=== PATIENT | male | born 1935 | race Caucasian/White ===

== ENCOUNTER 2017-03-18 10:04 | Outpatient (RCR) | payer MEDICARE, OTHER | END 2017-03-19 14:49 | disposition home or self-care (01) | LOC: ONC 10:04 | PROVIDERS: ATTEND Radiology Radiation Oncology | DX: Z51.0 Encounter for antineoplastic radiation therapy (principal); C61 Malignant neoplasm of prostate | CPT/HCPCS: 77300; 77301; 77334; 77336; 77338; 77385; 99214 ==

== ENCOUNTER 2017-05-18 09:58 | Outpatient (RCR) | payer MEDICARE, OTHER | END 2017-06-20 | disposition home or self-care (01) | LOC: ONC 09:58 | PROVIDERS: ATTEND Radiology Radiation Oncology | DX: Z51.0 Encounter for antineoplastic radiation therapy (principal); C61 Malignant neoplasm of prostate | CPT/HCPCS: 77336; 77385 ==

== ENCOUNTER 2022-05-11 12:12 | Inpatient (IN) | payer MEDICARE, OTHER ==
[~2022-05-11] VITALS: Ht 170.1 cm; Wt 93.5 kg
[2022-05-11] MEDS ORDERED: CALCIUM CARBONATE 500 MG (TUMS) TAB.CHEW PO PRN (12:45)
[2022-05-11] MEDS ORDERED: ALPRAZolam 0.25 MG (XANAX) TAB PO PRN (12:45)
[2022-05-11] MEDS ORDERED: MELATONIN 3 MG TABLET PO PRN (12:45)
[2022-05-11] MEDS ORDERED: ACETAMINOPHEN 325 MG TABLET PO PRN (12:45)
[2022-05-11] MEDS ORDERED: guaiFENesin/CODEINE (ROBITUSSIN AC) 10ML UDC PO PRN (12:45)
[2022-05-11] MEDS ORDERED: diphenhydrAMINE 25 MG TAB (BENADRYL) PO PRN (12:45)
[2022-05-11] MEDS ORDERED: FLEET ENEMA ADULT 1 EA BTL PR PRN (12:45)
[2022-05-11] MEDS ORDERED: LOPERAMIDE 2 MG (IMODIUM) TABLET PO PRN (12:45)
[2022-05-11] MEDS ORDERED: DOCUSATE SODIUM 100 MG (COLACE) CAP PO PRN (12:45)
[2022-05-11] MEDS ORDERED: ONDANSETRON 4 MG (ZOFRAN) ORAL DISSOLVE TAB PO PRN (12:45)
[2022-05-11] MEDS ORDERED: OXYC5TAB PO (12:47)
[2022-05-11] MEDS ORDERED: FENO145T26 PO (12:47)
[2022-05-11] MEDS ORDERED: DICL100G13 TP (12:47)
[2022-05-11] MEDS ORDERED: GLUC-219 PO (12:47)
[2022-05-11] MEDS ORDERED: CALC-901 PO (12:47)
[2022-05-11] MEDS ORDERED: PANT40TA52 PO (12:47)
[2022-05-11] MEDS ORDERED: TRAM50TA3 PO (12:47)
[2022-05-11] MEDS ORDERED: NIAC500T9 PO (12:47)
[2022-05-11] MEDS ORDERED: ASCO-262 PO (12:47)
[2022-05-11] MEDS ORDERED: MULT15TA3 PO (12:47)
[2022-05-11] MEDS ORDERED: ASPI325T32 PO (12:47)
[2022-05-11] MEDS ORDERED: DOXA2TAB2 PO (12:47)
[2022-05-11] MEDS ORDERED: [UNRECOGNIZED DRUG - CODE] TP (12:47)
[2022-05-11] MEDS ORDERED: DIAZ5TAB49 PO (12:47)
[2022-05-11] MEDS ORDERED: RIFA550T PO (12:47)
[2022-05-11] MEDS ORDERED: ACET-2267 PO (12:47)
[2022-05-11] MEDS ORDERED: MELA5TAB14 PO (12:47)
--- NOTE | 2022-05-11 12:48 | PM&R Post Admission Assessment ---
PM&R HP Date of Visit: May 11, 2022 Time of Visit: 18:00 History of Present Illness CC: Slow recovery following LTKA HPI: See below CC: S/P LTKA HPI: Patient is an 86-year-old male with a history of osteoarthritis who presents to the ARU on 05/11 following a left TKA. The patient has had chronic left knee pain due to his osteoarthritis that worsened over the past few months and had begun to limit his mobility due to pain. Prior to the surgery, this was managed with injections and anti-inflammatories, and the patient had failed an exercise program. Following the operation, the patient had some tachycardia, dyspnea on exertion, and endorsed an occasional sensation of tightness in his chest. The patient was found to be COVID + on 05/07. A CXR showed increased interstitial opacities exaggerated by small inspiration and pulmonary edema. CT angiogram showed atelectasis and no signs of PE. EKG on 05/05 showed a probable old inferior VT and a RBBB, and an EKG on 05/07 showed a possible new lateral wall VT. An echo was obtained and showed an EF of 70% and no signs of valvular or atrial pathology. When I entered the patient's room, he was awake and alert in his bed and had recently finished with PT. He reports that he is currently having a lot of pain in his left knee due to the therapy that he rates as a 7/10. He also endorses weakness in his left LE and a slight decrease in ROM. Patient lives alone and was previously independent in all ADLs. The patient also states that he has been having diarrhea for about 6 months and that he had an EGD and colonoscopy done in [place] which showed diverticulitis. He was started on antibiotics and probiotics, but feels that he probably forgot to take all of them. He also reports that he has had nausea without vomiting since he tested positive for COVID. He states that whenever he eats he feels extremely nauseous but that he has been on antiemetics which has helped. The patient has no other complaints and has not had any more episodes of chest discomfort/pain or dyspnea. PMH: HTN, chronic diarrhea, diverticulosis, BPH, osteoarthritis, anxiety, bladder cancer PSH: LTKA, appendectomy, TURBT, skin cancer All: Allopurinol (unknown reaction), penicillin (rash), prednisone (unknown reaction), sulfa (rash) Home meds: ASA, calcium carbonate-cholecalciferol, doxazosin, multivitamin, miralax, ascorbic acid, betamethasone diproprionate, diazepam, diclofenac, doxycycline hyclate, fenofibrate, advil, advil PM, niacin SH: Denies tobacco or illicit drug use, endorses occasional alcohol use FH: No pertinent family history ROS: Denies fever, chills, abdominal pain, back/neck pain, changes in vision or hearing, chest pain, SOB, numbness Exam: Patient is WD/WN, no acute distress. HRRR, 2+ distal pulses in all extremities, LCTAB, no respiratory distress or accessory muscle use, PERRLA, abdomen is soft, nontender, neck is supple and nontender, left lower extremity is currently dressed and braced, no edema or erythema noted. Distal sensation intact. A: S/P LTKA Weakness Diarrhea COVID + HTN Nausea Anxiety Diverticulosis BPH Osteoarthritis P: Work with PT/OT Start on probiotics, loperamide, rifaximin Isolation protocol for COVID Antiemetics as needed Anxiolytics as needed Pain control Continue doxazosin NESTOR ROMO Past Cceykfd-Ibkoxd-Bikkuy Hx Past Med/Social Hx: Reviewed Nursing Past Med/Soc Hx, Reviewed and Corrections made Patient Social History Marrital Status: single Employed/Student: retired Alcohol Use: Denies Use Smoking Status: Never a Smoker Past Medical History Surgeries: Orthopedic Respiratory: Pneumonia COVID 04/2022 Cardiac: High Cholesterol, Hypertension Genitourinary: Benign Prostatic Hyperpl Gastrointestinal: Gastroesophageal Reflux PM&R Allergy/Meds/Data Review Allergies Coded Allergies: Penicillins (Verified Allergy, Unknown, 05/11/22) Sulfa (Sulfonamide Antibiotics) (Verified Allergy, Unknown, 05/11/22) allopurinol (Verified Allergy, Unknown, 05/11/22) ibuprofen (Verified Allergy, Unknown, 05/11/22) prednisone (Verified Allergy, Unknown, 05/11/22) Home Medications Scheduled Acetaminophen (Tylenol Extra Strength), 1,000 MG PO Q8H, (Reported) Ascorbate Calcium (Vitamin C), 500 MG PO DAILY, (Reported) Aspirin (Aspirin EC), 325 MG PO HS, (Reported) Calcium Carbonate/Vitamin D3 (Calcium 600 + Vit D 800 Tab), 1 EACH PO BID, (Reported) Doxazosin Mesylate (Doxazosin Mesylate), 2 MG PO HS, (Reported) Fenofibrate Nanocrystallized (Fenofibrate), 145 MG PO HS, (Reported) Glucosamine/D3/Boswellia Cindy (Osteo Bi-Flex Tablet), 1 EACH PO DAILY, (Reported) Multivit-Min/Ferrous Fumarate (Multivitamin with Minerals Tab), 1 EA PO DAILY, (Reported) Niacin (Niacin), 500 MG PO HS, (Reported) Pantoprazole Sodium (Pantoprazole Sodium), 40 MG PO DAILY, (Reported) Rifaximin (Xifaxan), 550 MG PO TID, (Reported) Scheduled PRN Betamethasone Dipropionate (Sernivo), 1 APPLIC TP DAILY PRN for RASH, (Reported) Diazepam (Diazepam), 5 MG PO DAILY PRN for ANXIETY, (Reported) Diclofenac Sodium (Diclofenac Sodium), 2 GM TP QID PRN for PAIN-BREAKTHROUGH, (Reported) Melatonin (Melatonin), 5 MG PO HS PRN for SLEEP, (Reported) Oxycodone HCl (Oxycodone HCl), 5-10 MG PO EVERY 2 HOURS PRN for PAIN-SEVERE (8- 10), (Reported) Tramadol HCl (Tramadol HCl), 50-100 MG PO Q6H PRN for PAIN-MODERATE (5-7), (Reported) Current Medications Current Medications Reviewed Review of Systems Constitutional: see HPI, malaise, weakness EENTM: no symptoms reported Respiratory: dyspnea on exertion Cardiovascular: no symptoms reported Gastrointestinal: nausea Genitourinary: decreased output Musculoskeletal: back pain, joint pain Skin: no symptoms reported Psychiatric/Neurological: No Symptoms Reported All Other Systems Reviewed Negative Unless Noted: Yes Physical Exam Physical Exam Vital Signs Capillary Refill : Height, Weight, BMI Height: '" Weight: lbs. oz. kg; BMI Method: General Appearance: No Apparent Distress, WD/WN, Chronically ill, Obese Eyes: Bilateral Eye Normal Inspection, Bilateral Eye PERRL HEENT: PERRL/EOMI, Normal ENT Inspection, Pharynx Normal Neck: Full Range of Motion, Normal Inspection, Non Tender, Supple, Carotid Bruit Respiratory: Chest Non Tender, Lungs Clear, Normal Breath Sounds, No Accessory Muscle Use, No Respiratory Distress Cardiovascular: Regular Rate, Rhythm, No Edema, No Gallop, No JVD, No Murmur, Normal Peripheral Pulses Gastrointestinal: Normal Bowel Sounds, No Organomegaly, No Pulsatile Mass, Non Tender, Soft Back: Normal Inspection, No CVA Tenderness, No Vertebral Tenderness Extremity: Normal Capillary Refill, Normal Inspection, Normal Range of Motion (except left leg), Non Tender, No Calf Tenderness, No Pedal Edema Neurologic/Psychiatric: Alert, Oriented x3, No Motor/Sensory Deficits, Normal Mood/Affect, 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 Norm as Tested, Abnormal Gait, Motor Weakness Skin: Normal Color, Warm/Dry Lymphatic: No Adenopathy PM&R Medical Assessment & Plan REHAB/MEDICAL ASSESSMENT AND PLAN: REHAB IMPAIRMENT GROUP: LTKA ETIOLOGIC DIAGNOSIS: LTKA The comorbidities that impact the patients function and/or functional outcome by: Advanced age, slow recovery, recent COVID, continued and refractory nausea, dehydration on admit, lives alone REHAB PLAN: The patient is being admitted to our comprehensive inpatient rehabilitation facility and can tolerate the intensity of service consisting of at least: 180 minutes of therapy a day, 5 out of 7 days a week Rehab treatment will consist of: PT and OT will focus on regaining function with use of assistive devices to increase stamina and prevent falls in order to return back home to independent living The patient/family has a good understanding of our discharge process and will benefit from an interdisciplinary inpatient rehabilitation program. The patient has potential to make improvement and is in need of at least two of the following multidisciplinary therapies including but not limited to physical, occupational, speech, and prosthetics and orthotics. Additionally the patient will need services from respiratory, nutritional services, wound care, ps ychology, etc. (Customize this to each patient). Given the patients complex condition and risk of further medical complications, rehabilitation services cannot be safely or effectively provided at a lower level of care such as a jail facility. BARRIERS TO DISCHARGE: Lives alone with slow recovery ESTIMATED LOS: 10 days DISPOSITION: Home RELEVANT CHANGES SINCE PREADMISSION SCREENING: I have compared the patients medical and functional status at the time of the preadmission screening and there are: No changes PROGNOSIS: Fair REHABILITATION GOALS: 1.PT and OT will focus on regaining function with use of assistive devices to increase stamina and prevent falls in order to return back home to independent living All the above goals were reviewed with the patient and he/she is in agreement. By signing this document, I acknowledge that I have personally performed a full physical examination on this patient within 24 hours of admission to this inpatient rehabilitation facility and have determined the patient to be able to tolerate the above course of treatment at an intensive level for a reasonable period of time. I will be completing a detailed individualized Plan of Care for this patient by day #4 of the patients stay based upon the Preadmission Screen, the Post-Admission Evaluation, and the therapy evaluations. Admission Dx/Comorbidities: (1) History of arthroplasty of right knee ICD Codes: Z96.651 - Presence of right artificial knee joint (2) Nausea ICD Codes: R11.0 - Nausea (3) History of COVID-19 ICD Codes: Z86.16 - Personal history of COVID-19 (4) Hypoxia ICD Codes: R09.02 - Hypoxemia Assessment/Plan Assessment and Plan Assess & Plan/Chief Complaint A: S/P LTKA due to osteoarthritis Dr Price 05/05/2022 Weakness Diarrhea COVID recent 3 weeks ago s/p Paxlovid Hypoxia requiring O2 new onset h/o falls HTN Nausea Anxiety Diverticulosis BPH Osteoarthritis Subacute nausea Dehydration RBBB Plan: Pain control Nausea treatment IVF Pain control Aggressive PT OT AMY GROVES DO May 11, 2022 12:48
--- NOTE | 2022-05-11 13:59 | Physical Therapy Evaluation ---
PT Evaluation-General Medical Diagnosis Admission Date May 11, 2022 at 13:15 Medical Diagnosis: s/p Left TKA Onset Date: May 07, 2022 Therapy Diagnosis Therapy Diagnosis: Gait deficit, strength deficit Precautions Precautions/Isolations: Fall Prevention Weight Bear Status Right Lower Extremity: Right Full Weight Bearing Left Lower Extremity: Left Weight Bearing/Tolerated Referral Physician: Wolf Reason for Referral: Evaluation/Treatment Medical History Reviewed History: Yes Social History Home: Single Level Current Living Status: Alone Entry Into Home: Ramp Prior Prior Level of Function SCALE: Activities may be completed with or without assistive devices. 1-Yqlkyyrykn-okxbddo completes the activity by him/herself with no assistance from a helper. 5-Set-up or Clean-up Assistance-helper sets up or cleans up; patient completes activity. [place] assists only prior to or following the activity. 4-Supervision or Touching Assistance-helper provides verbal cues and/or touching/steadying and/or contact guard assistance as patient completes activity. Assistance may be provided throughout the activity or intermittently. 3-Partial/Moderate Assistance-helper does LESS THAN HALF the effort. [place] lifts, holds or supports trunk or limbs, but provides less than half the effort. 2-Substantial/Maximal Assistance-helper does MORE THAN HALF the effort. [place] lifts or holds trunk or limbs and provides more than half the effort. 0-Tsidvwebm-hwpggv does ALL the effort. Patient does none of the effort to complete the activity. Or, the assistance of 2 or more helpers is required for the patient to complete the activity. If activity was not attempted, code reason: 7-Patient Refused. 9-Not Applicable-not attempted and the patient did not perform the activity before the current illness, exacerbation or injury. 10-Not Attempted due to Environmental Limitations-(lack of equipment, weather restraints, etc.). 88-Not Attempted due to Medical Conditions or Safety Concerns. Bed Mobility: 6 Transfers (B,C,W/C): 6 Gait: 6 Stairs: 6 Indoor Mobility (Ambulation): Independent Stairs: Independent Prior Devices Use: Walker Patient reports he has 2 power wheelchairs at home that his used and they fit him, he has a cane and FWW PT Evaluation-Current Subjective Patient presents to the clinic via EMS transport. Patient agreeable to treatment however reports "the knee really hurts when I move it." Rates pain at 8-10/10 with movement. Patient reports that he hasn't eaten in 3 days. Later states that his son "got me a sandwich from [employer] and that really tasted good." Then a few minutes later states "My son got me a chili dog from [employer] and that went down really well." Reports "the food from there ([facility]) wasn't fit to eat. Made me gag when I tried to swallow it." Nurse notified. Pain Section J - Health Conditions 1. Rarely or not at all 2. Occasionally 3. Frequently 4. Almost constantly 8. Unable to answer Pain Effect on Sleep: 2 Pain Interference with Therapy: 3 Pain Interference w/Day-to-Day: 3 Objective Patient Orientation: Person, Place, Time, Mumbles ROM/Strength ROM Lower Extremities Left knee flexion 75 degrees AROM, left knee extension lacks 20 degrees of TKE Right LE appears WFLs all planes; Left hip and ankle WFLs all planes. Sensory Vision: Functional Hearing: Hearing Aid/Aides Sensation Right Lower Extremit: Intact Sensation Left Lower Extremity: Intact Transfers Roll Left & Right (QC): 3 Sit to Lying (QC): 3 Lying to Sitting/Side of Bed(Q: 3 Sit to Stand (QC): 3 Chair/Kmk-vf-Aqecg Xfer(QC): 3 Toilet Transfer (QC): 3 Car Transfer (QC): 3 Gait Does the Patient Walk?: Yes Mode of Locomotion: Walk Anticipated Mode of Locomotion: Walk Walk 10 feet (QC): 3 Walk 50 ft with 2 Turns(QC): 88 Walk 150 ft (QC): 88 Walking 10ft/uneven surface-QC: 3 Distance: 20 feet Gait Assistive Device: FWW Wheelchair Training Does the Pt Use a Wheelchair?: Yes Distance: 50 Wheel 50 ft with 2 turns (QC): 4 Wheel 150 ft (QC): 1 Type of Wheelchair: Manual Stairs #of Steps: 0 1 Step (curb) (QC): 88 4 Steps (QC): 88 12 Steps (QC): 88 Balance Sitting Static: Fair Sitting Dynamic: Fair Standing Static: Poor Standing Dynamic: Poor Picking up an Object (QC): 4 Special Test Comments Mustaphaetti 02/15 Assessment/Needs Patient tolerated initial evaluation and treatment poorly. Patient requires min A for all bed mobility due to weakness in the left LE and pain. Patient requires min/mod A for all observed transfers. Patient ambulates 15', 20', 15' and 10' with min A and verbal cues for safety, progression, posture and appropriate use of FWW. Patient ambulates with significant antalgic gait pattern with decreased stance time on left LE, lacks ~20 degrees left TKE during stance phase, shortened stride length bilaterally, poor tolerance and increased fall risk. Patient able to propel w/c 50 feet with min A and verbal cues for turning and encouragement. Patient in w/c with OT post PT treatment with all needs met. PT evaluation performed first, followed by OT evaluation, then co- treatment with OT due to patient requiring additional skilled treatment and assistance to perform balance and functional ADLs safely. Rehab Potential: Fair PT Shelter Goals Shelter Goals PT Candy Vendor Goals Time Frame: Jun 20, 2022 Roll Left to Right (QC): 6 Sit to Lying (QC): 6 Lying-Sitting on Side/Bed(QC): 6 Sit to Stand (QC): 6 Chair/Gaq-lu-Lprlj Xfer(QC): 6 Toilet/Commode Transfer (QC): 6 Car Transfer (QC): 6 Does the Patient Walk: Yes Walk 10 feet (QC): 6 Walk 10ft-Uneven Surface(QC): 6 Walk 50ft with 2 Turns (QC): 6 Walk 150 ft (QC): 4 Does the Pt use WC or Scooter?: Yes Wheel 50 feet with 2 turns (QC: 6 Type: Manual Wheel 150 feet: 6 Type: Manual 1 Step (curb) (QC): 3 4 Steps (QC): 3 12 Steps (QC): 3 Picking up an Object (QC): 6 PT Plan Problem List Problem List: Activity Tolerance, Functional Strength, Safety, Balance, Gait, Transfer, Bed Mobility, ROM Treatment/Plan Treatment Plan: Continue Plan of Care Treatment Plan: Bed Mobility, Education, Functional Activity Christophe, Functional Strength, Group Therapy, Gait, Safety, Therapeutic Exercise, Transfers Treatment Duration: Jun 20, 2022 Frequency: At least 5 of 7 days/Wk (IRF) Estimated Hrs Per Day: 1.5 hours per day Patient and/or Family Agrees t: Yes Safety Risks/Education Patient Education: Gait Training, Transfer Techniques Teaching Recipient: Patient Teaching Methods: Demonstration, Discussion Response to Teaching: Verbalize Understanding, Return Demonstration Time Time In: 1330 Time Out: 1440 DATE: May 11, 2022 Total Billed Treatment Time: 60 Total Billed Treatment PT Eval [id number] OT Eval [id number] Co-Treatment [id number] Charges: Visit, Fariba, Nany (20) FA (30) AKIRA ADAMSON PT May 11, 2022 13:59
--- NOTE | 2022-05-11 15:00 | Occupational Therapy Eval ---
OT Evaluation-General/PLF Medical Diagnosis Admission Date May 11, 2022 at 13:15 Medical Diagnosis: s/p Left TKA Onset Date: May 07, 2022 Therapy Diagnosis Therapy Diagnosis: decreased ADL status Precautions Precautions/Isolations: Fall Prevention, Standard Precautions, Pressure Ulcer Referral Physician: Wolf Larsen Reason: Evaluation/Treatment Medical History Additional Medical History HTN, diverticulitis, BPH, OA, TURBT, skin cancer removal Current History s/p L TKA 05/05/22. COVID at the beginning of April Social History Home: Single Level Current Living Status: Alone Entry Into Home: Ramp ADL-Prior Level of Function SCALE: Activities may be completed with or without assistive devices. 4-Qzfjgrqpvd-slfkgoa completes the activity by him/herself with no assistance from a helper. 5-Set-up or Clean-up Assistance-helper sets up or cleans up; patient completes activity. [place] assists only prior to or following the activity. 4-Supervision or Touching Assistance-helper provides verbal cues and/or touching/steadying and/or contact guard assistance as patient completes activity. Assistance may be provided throughout the activity or intermittently. 3-Partial/Moderate Assistance-helper does LESS THAN HALF the effort. [place] lifts, holds or supports trunk or limbs, but provides less than half the effort. 2-Substantial/Maximal Assistance-helper does MORE THAN HALF the effort. [place] lifts or holds trunk or limbs and provides more than half the effort. 8-Tdygmonlm-syrncx does ALL the effort. Patient does none of the effort to complete the activity. Or, the assistance of 2 or more helpers is required for the patient to complete the activity. If activity was not attempted, code reason: 7-Patient Refused. 9-Not Applicable-not attempted and the patient did not perform the activity before the current illness, exacerbation or injury. 10-Not Attempted due to Environmental Limitations-(lack of equipment, weather restraints, etc.). 88-Not Attempted due to Medical Conditions or Safety Concerns. ADL PLOF Comments Pt reports IND with ADLs and functional mobility at PLOF, without AD. He has a walk in shower, no SC. Self Care: Independent Functional Cognition: Independent DME/Equipment: Shower OT Current Status Subjective Pt agreeable to OT evaluation, rates pain 7/10 in L knee. Pt appears slightly confused throughout tx, at one point states he hasn't ate in 3 days and the food at [employer] wasn't fit to eat. Later he indicated his son got him a sandwich from [employer], and a few minutes after that said his son got him a chili dog from [employer]. Mental Status/Objective Patient Orientation: Person, Confused, Place, Situation Attachments: Polar Pack Current Glasses/Contacts: Yes Hearing Aids: Yes Dentures/Partials: No Hand Dominance: Right Upper Extremity ROM WFL, BUE shoulder flexion to approx 160 degrees Upper Extremity Coordination WFL Upper Extremity Sensation WFL Upper Extremity Strength Grossly 4/5 BUEs slightly decreased fine motor strength, pt had difficulty opening salad dressing ADL-Treatment Eating (QC): 5 (set up. Assist opening salad dressing) Oral Hygiene (QC): 6 (IND seated at sink.) Shower/Bathe Self (QC): 3 (Min A with lower legs/feet. ) Upper Body Dressing (QC): 5 Lower Body Dressing (QC): 4 (CGA. ) On/Off Footwear (QC): 4 (CGA for dynamic sitting balance as pt leaned forward) Toileting Hygiene (QC): 4 (CGA. Pt able to manage hygiene and clothing) Increased time and encouragement required to complete ADLS. Pt often states he can't complete a task prior to attempting himself. Other Treatments OT evaluation complete. OT/PT cotreat due to skill of 2 clinicians required that a rehab assistant could not perform in order to coordinate UE/LEs, decrease fall risk, and due to pt's limitations in pain, mobility, transfers, dynamic standing balance, and activity tolerance. OT focused on UE placement, cues for sequencing/safety, and ADLs, PT focused on LE placement, gross overall movement, and transfers/mobility. Pt completed functional transfers and mobility, min A bed mobility, min-mod A with transfers, min A with ambulation (15', 20', 15', & 10', VCs required for safety, progression, posture, and appropriate use of FWW), min A w/c mobility 50' (VCS for turns and encouragement). Pt used FWW to complete toileting, then completed sponge bath, dressing, and oral care seated at sink, then used FWW to transfer to EOB. Pt sat EOB to eat lunch, set up assist required to open salad dressing. No LOB with dynamic sitting balance, but pt states fatigue with increased time. Pt transferred supine, polar pack placed on LLE. Post tx, pt in bed, call light in reach and all needs met. Education OT Patient Education: Correct positioning, Energy conservation, Modified ADL techniques, Progress toward Goal/Update tx plan, Purpose of tx/functional activities, Rehab process Teaching Recipient: Patient Teaching Methods: Discussion Response to Teaching: Verbalize Understanding BIMS CAM BIMS Expression of Ideas and Wants: Without Difficulty Understanding Verbal Content: Usually Understands (pt HUSLIA, sometimes requires repetition of instructions/question) IRF RENITA BIMS: IRF RENITA BIMS Response (Comments) Value Repitition of Three Words Three 3 Recalls Socks No, Could Not Recall 0 Recalls Blue Yes, No Cue Required 2 Recalls Bed No, Could Not Recall 0 Year Correct 3 Month Accurate Within 5 Days 2 Day Correct 1 Total 11 Should Staff Asses. Mental St.: No CAM Mental Status Change/Baseline: 0 Inattention: 0 Disorganized thinkin Altered level of consciousness: 0 OT Short Term Goals Short Term Goals Time Frame: May 25, 2022 Upper body dressin Lower body dressin Putting on/taking off footwear: 5 OT Fpc Goals Automotive Light Mechanic Goals Time Frame: Jun 05, 2022 Acute change in mental status: 0 Inattention: 0 Disorganized thinkin Altered level of consciousness: 0 Eating (QC): 6 Oral Hygiene (QC): 6 Toileting Hygiene (QC): 6 Shower/Bathe Self (QC): 5 Upper Body Dressing (QC): 6 Lower Body Dressing (QC): 6 On/Off Footwear (QC): 6 Additional Goals: 1-Demonstrate ADL Tasks, 2-Verbalize Understanding, 3- ImproveStrength/Christophe 1=Demonstrate adherence to instructed precautions during ADL tasks. 2=Patient will verbalize/demonstrate understanding of assistive d evices/modifications for ADL. 3=Patient will improve strength/tolerance for activity to enable patient to perform ADL's. OT Education/Plan Problem List/Assessment Assessment: Decreased Activ Tolerance, Decreased UE Strength, Impaired Funct Balance, Impaired I ADL's, Impaired Self-Care Skills Discharge Recommendations Plan/Recommendations: Continue POC Equpiment Recommendations-D/C: Bath Chair Comment Further AE/DME to be assessed based on pt's progress. At this time, pt may require a hip kit at discharge. Barriers to Progress Pt's pain level limits his motivation to complete ADLS himself. Treatment Plan/Plan of Care Patient would benefit from OT for education, treatment and training to promote independence in ADL's, mobility, safety and/or upper extremity function for ADL's. Plan of Care: ADL Retraining, Functional Mobility, Group Exercise/Act as Ind, UE Funct Exercise/Act Treatment Duration: Jun 05, 2022 Frequency: At least 5 of 7 days/Wk (IRF) Estimated Hrs Per Day: 1.5 hours per day Agreement: Yes Rehab Potential: Fair Time Start Time: 13:40 Stop Time: 15:10 DATE: May 11, 2022 Total Time Billed (hr/min): 90 Billed Treatment Time OT eval [id number] (10'), [place]reat [id number] (80') 1, EVM (10'), FA (20'), ADL 4 (60') THOMAS STEWART OT May 11, 2022 15:00
[2022-05-11 15:03] VITALS: BP 144/67
[2022-05-11] MEDS ORDERED: NON-FORMULARY MEDICATION 1 EA EA (Melatonin 5 MG) PO PRN (15:45)
[2022-05-11] MEDS ORDERED: DICLOFENAC 1% GEL 100 GM (VOLTAREN) TUBE TP PRN (15:45)
[2022-05-11] MEDS ORDERED: MELATONIN 10 MG TABLET PO PRN (16:00)
--- NOTE | 2022-05-11 16:19 | Physical Therapy Daily Note ---
PT Daily Note-Current Subjective PT just finished tx and pt is working w/OT upon arrival. Pt agrees to continue short co-treat w/ADMITTING COUNSELOR & OT. Pt also demonstrates confusion during tx. Pain Numeric Pain Scale: 7 Location: Left Location Body Site: Knee Pain Description: Ache, Tightness Section J - Health Conditions 1. Rarely or not at all 2. Occasionally 3. Frequently 4. Almost constantly 8. Unable to answer Pain Effect on Sleep: 2 Pain Interference with Therapy: 3 Pain Interference w/Day-to-Day: 3 Mental Status Patient Orientation: Person, Place, Situation Attachments: Other-See Comments (Hearing aids) Transfers SCALE: Activities may be completed with or without assistive devices. 0-Tiilmcikmd-xuyvztp completes the activity by him/herself with no assistance from a helper. 5-Set-up or Clean-up Assistance-helper sets up or cleans up; patient completes activity. [place] assists only prior to or following the activity. 4-Supervision or Touching Assistance-helper provides verbal cues and/or touching/steadying and/or contact guard assistance as patient completes activity. Assistance may be provided throughout the activity or intermittently. 3-Partial/Moderate Assistance-helper does LESS THAN HALF the effort. [place] lifts, holds or supports trunk or limbs, but provides less than half the effort. 2-Substantial/Maximal Assistance-helper does MORE THAN HALF the effort. [place] lifts or holds trunk or limbs and provides more than half the effort. 4-Stmqbqmto-aztogu does ALL the effort. Patient does none of the effort to complete the activity. Or, the assistance of 2 or more helpers is required for the patient to complete the activity. If activity was not attempted, code reason: 7-Patient Refused. 9-Not Applicable-not attempted and the patient did not perform the activity before the current illness, exacerbation or injury. 10-Not Attempted due to Environmental Limitations-(lack of equipment, weather restraints, etc.). 88-Not Attempted due to Medical Conditions or Safety Concerns. Weight Bearing Right Lower Extremity: Right Full Weight Bearing Left Lower Extremity: Left Weight Bearing/Tolerated Exercises Seated Therapy Exercises: Ankle pumps, Long arc quads (Attempted on L LE but difficulty moving w/o assistance), Hip flexion (Attempted on L LE but difficulty moving w/o assistance) Treatments OT/PT cotreat due to skill of 2 clinicians required that a rehabilitation medicine physician could not perform in order to coordinate UE/LEs, decrease fall risk, and due to pt's limitations in pain, mobility, transfers, dynamic standing balance, and activity tolerance. OT focused on UE placement, cues for sequencing/safety, and ADLs, PT focused on LE placement, gross overall movement, and transfers/mobility. Pt completed functional transfers and mobility, min A bed mobility, min-mod A with transfers, min A with ambulation (15', 20', 15', & 10', VCs required for safety, progression, posture, and appropriate use of FWW). Pt sat EOB to eat lunch, set up assist required to open salad dressing. No LOB with dynamic sitting balance, but pt states fatigue with increased time. Pt transferred supine, polar pack placed on LLE. Post tx, pt in bed, call light in reach and all needs met. Assessment Current Status: Fair Progress Pain & fatigue limit pt's participation during tx. PT Mica Plate Layer Goals Mica Plate Layer Goals PT Mica Plate Layer Goals Time Frame: Jun 20, 2022 Roll Left & Right (QC): 6 Sit to Lying (QC): 6 Lying-Sitting on Side/Bed(QC): 6 Sit to Stand (QC): 6 Chair/Idl-wr-Namrc Xfer(QC): 6 Toilet Transfer (QC): 6 Car Transfer (QC): 6 Does the Patient Walk: Yes Walk 10 feet (QC): 6 Walk 50ft with 2 Turns (QC): 6 Walk 150 ft (QC): 4 Walking 10ft on Uneven Surface: 6 1 Step (curb) (QC): 3 4 Steps (QC): 3 12 Steps (QC): 3 Picking up an Object (QC): 6 Does the Pt use WC or Scooter?: Yes Wheel 50 feet with 2 turns (QC: 6 Type: Manual Wheel 150 feet: 6 Type: Manual PT Plan Problem List Problem List: Activity Tolerance, Functional Strength, Gait, Transfer Treatment/Plan Treatment Plan: Continue Plan of Care Treatment Plan: Bed Mobility, Education, Functional Activity Christophe, Functional Strength, Group Therapy, Gait, Safety, Therapeutic Exercise, Transfers Treatment Duration: Jun 20, 2022 Frequency: At least 5 of 7 days/Wk (IRF) Estimated Hrs Per Day: 1.5 hours per day Patient and/or Family Agrees t: Yes Safety Risks/Education Patient Education: Transfer Techniques, Correct Positioning Teaching Recipient: Patient Teaching Methods: Discussion Response to Teaching: Verbalize Understanding Time Time In: 1440 Time Out: 1510 DATE: May 11, 2022 Total Billed Treatment Time: 30 Total Billed Treatment 1, FA x2 (30m) ERIC MO PTA May 11, 2022 16:19
--- NOTE | 2022-05-11 16:52 | Progress Note ---
DEMETRIUSNESTOR 05/11/22 1652: Progress Note CC: S/P LTKA HPI: Patient is an 86-year-old male with a history of osteoarthritis who presents to the ARU on 05/11 following a left TKA. The patient has had chronic left knee pain due to his osteoarthritis that worsened over the past few months and had begun to limit his mobility due to pain. Prior to the surgery, this was managed with injections and anti-inflammatories, and the patient had failed an exercise program. Following the operation, the patient had some tachycardia, dyspnea on exertion, and endorsed an occasional sensation of tightness in his chest. The patient was found to be COVID + on 05/07. A CXR showed increased interstitial opacities exaggerated by small inspiration and pulmonary edema. CT angiogram showed atelectasis and no signs of PE. 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 An echo was obtained and showed an EF of 70% and no signs of valvular or atrial pathology. When I entered the patient's room, he was awake and alert in his bed and had recently finished with PT. He reports that he is currently having a lot of pain in his left knee due to the therapy that he rates as a 7/10. He also endorses weakness in his left LE and a slight decrease in ROM. Patient lives alone and was previously independent in all ADLs. The patient also states that he has been having diarrhea for about 6 months and that he had an EGD and colonoscopy done in [place] which showed diverticulitis. He was started on antibiotics and probiotics, but feels that he probably forgot to take all of them. He also reports that he has had nausea without vomiting since he tested positive for COVID. He states that whenever he eats he feels extremely nauseous but that he has been on antiemetics which has helped. The patient has no other complaints and has not had any more episodes of chest discomfort/pain or dyspnea. PMH: HTN, chronic diarrhea, diverticulosis, BPH, osteoarthritis, anxiety, bladder cancer PSH: LTKA, appendectomy, TURBT, skin cancer All: Allopurinol (unknown reaction), penicillin (rash), prednisone (unknown reaction), sulfa (rash) Home meds: ASA, calcium carbonate-cholecalciferol, doxazosin, multivitamin, miralax, ascorbic acid, betamethasone diproprionate, diazepam, diclofenac, doxycycline hyclate, fenofibrate, advil, advil PM, niacin SH: Denies tobacco or illicit drug use, endorses occasional alcohol use FH: No pertinent family history ROS: Denies fever, chills, abdominal pain, back/neck pain, changes in vision or hearing, chest pain, SOB, numbness Exam: Patient is WD/WN, no acute distress. HRRR, 2+ distal pulses in all extremities, LCTAB, no respiratory distress or accessory muscle use, PERRLA, abdomen is soft, nontender, neck is supple and nontender, left lower extremity is currently dressed and braced, no edema or erythema noted. Distal sensation intact. A: S/P LTKA Weakness Diarrhea COVID + HTN Nausea Anxiety Diverticulosis BPH Osteoarthritis P: Work with PT/OT Start on probiotics, loperamide, rifaximin Isolation protocol for COVID Antiemetics as needed Anxiolytics as needed Pain control Continue doxazosin ZOILA GROVES DO 05/12/22 0553: Supervisory-Addendum Brief Verification & Attestation Participated in pt care: history, MDM, physical Personally performed: exam, history, MDM, supervision of care Care discussed with: Medical Student Procedures: n/a Results interpretation: Verified all documentation Verification and Attestation of Medical Student E/M Service A medical student performed and documented this service in my presence. I reviewed and verified all information documented by the medical student and made modifications to such information, when appropriate. I personally performed the physical exam and medical decision making. Zoila Groves May 12, 2022,05:53 NESTOR ROMO May 11, 2022 16:52 ZOILA GROVES DO May 12, 2022 05:53
[2022-05-11] MEDS: ACETAMINOPHEN 500 MG TAB (TYLENOL) PO SCH ×2 (17:22→23:50)
[2022-05-11] MEDS: ASPIRIN E.C. 81 MG (ECOTRIN) TAB PO SCH (17:23)
[2022-05-11] MEDS: CALCIUM CARB + VIT D 600 MG (CALCARB + D) TAB PO SCH (17:23)
[2022-05-11] MEDS ORDERED: PROMETHAZINE INJ 25 MG/ML (PHENERGAN) AMP IM PRN (18:15)
[2022-05-11] MEDS: ONDANSETRON 4 MG/2 ML (SDV) Z0FRAN IVP SCH ×2 (18:26→23:50)
[2022-05-11] MEDS: NS IV 1000 ML 1,000 ML IV SCH (18:27)
[2022-05-11] MEDS: DOCUSATE SODIUM 100 MG (COLACE) CAP PO SCH (20:19)
[2022-05-11] MEDS: SENNA W/DOCUSATE (SENOKOT S) TABLET PO SCH (20:19)
[2022-05-11] MEDS: polyethylene glycoL POWDER 17 GM (MIRALAX) PACK PO SCH (20:19)
[2022-05-11] MEDS: NIACIN 500 MG TABLET PO SCH (20:26)
[2022-05-11] MEDS: doxAzosin 2 MG (CARDURA) TAB PO SCH (20:29)
[2022-05-11 20:30] VITALS: BP 116/56
[2022-05-11] MEDS: FENOFIBRATE 134 MG (LOFIBRA) CAPSULE PO SCH (20:30)
[2022-05-11] MEDS: RIFAXIMIN 550 MG TABLET (XIFAXAN) PO SCH (20:30)
[2022-05-11] MEDS ORDERED: NON-FORMULARY MEDICATION 1 EA EA (Aspirin (Aspirin EC) 325 MG) PO SCH (21:00)
[2022-05-11] MEDS ORDERED: NON-FORMULARY MEDICATION 1 EA EA (Calcium Carbonate/Vitamin D3 (Calcium 600 + Vit D 800 Ta PO SCH (21:00)
[2022-05-11] MEDS ORDERED: NON-FORMULARY MEDICATION 1 EA EA (Fenofibrate Nanocrystallized (Fenofibrate) 145 MG) PO SCH (21:00)
[2022-05-12] MEDS: MULTIVIT W/MINERALS TAB (THERAGRAN M) PO SCH (05:20)
[2022-05-12] MEDS: ONDANSETRON 4 MG/2 ML (SDV) Z0FRAN IVP SCH ×4 (05:20→23:26)
[2022-05-12 05:25] LABS: BASOPHILS % (AUTO) 1 % (0-10); EOSINOPHILS # (AUTO) 0.2 10^3/uL (0.0-0.3); EOSINOPHILS % (AUTO) 5 % (0-10); HEMATOCRIT 30 % (40-54); HEMOGLOBIN 10.5 g/dL (13.3-17.7); LYMPHOCYTES # (AUTO) 0.6 10^3/uL (1.0-4.0); LYMPHOCYTES % (AUTO) 14 % (12-44); MEAN CORPUSCULAR HEMOGLOBIN 30 pg (25-34); MEAN CORPUSCULAR HGB CONC 35 g/dL (32-36); MEAN CORPUSCULAR VOLUME 88 fL (80-99); MEAN PLATELET VOLUME 8.9 fL (9.0-12.2); MONOCYTES # (AUTO) 0.5 10^3/uL (0.0-1.0); MONOCYTES % (AUTO) 12 % (0-12); NEUTROPHILS # (AUTO) 2.7 10^3/uL (1.8-7.8); NEUTROPHILS % (AUTO) 64 % (42-75); PLATELET COUNT 224 10^3/uL (130-400); WHITE BLOOD COUNT 4.2 10^3/uL (4.3-11.0)
[2022-05-12 05:45] LABS: ALBUMIN 2.9 GM/DL (3.2-4.5); BILIRUBIN,TOTAL 0.7 MG/DL (0.1-1.0); CALCIUM 8.3 MG/DL (8.5-10.1); CREATININE SERUM 1.07 MG/DL (0.60-1.30); POTASSIUM 3.7 MMOL/L (3.6-5.0)
--- NOTE | 2022-05-12 06:26 | Individualized Plan of Care ---
Individualized Plan of Care Rehab Nursing IPOC Order Admission Date May 11, 2022 at 13:15 Current Orders Orders Admission Order(Inpt,Obs,Sdc) (05/11/22 12:45) Vital Signs: Per Unit Policy ( ,16,00 (05/11/22 12:45) Marvel Beebe (05/11/22 12:45) Sequential Compression Device (05/11/22 12:45) Rug Setter [place]-Inpt Rehab Con (05/11/22 12:45) Rehab Nursing Orders-Ipoc (05/11/22 12:45) Physical Therapy Rehab Orders (05/11/22 12:45) Occupational Therapy Rehab Ord (05/11/22 12:45) Speech Therapy Rehab Orders (05/11/22 12:45) Cbc With Automated Diff (05/12/22 06:00) Comprehensive Metabolic Panel (05/12/22 06:00) Precautions (Aru) (05/11/22 12:45) Weekly Weight WEEK (05/11/22 12:45) Rehab-Intensity Of Therapy (05/11/22 12:45) Initiate Admission Nursing Pro .admission (05/11/22 12:45) Alprazolam Tablet (Xanax Tablet) (05/11/22 12:45) Calcium Carbonate Chew Tablet (Antacid C (05/11/22 12:45) Diphenhydramine Tablet (Benadryl Tablet) (05/11/22 12:45) Docusate Sodium Capsule (Colace Capsule) (05/11/22 21:00) Docusate Sodium Capsule (Colace Capsule) (05/11/22 12:45) Bisacodyl Suppository (Dulcolax Supposit (05/11/22 12:45) Lactulose Oral Solution (Enulose Oral So (05/11/22 12:45) Na Phos/Na Biphos Enema (Fleet Enema Eleazar (05/11/22 12:45) Guaifenesin/Codeine Syrup (Robitussin Ac (05/11/22 12:45) Loperamide Tablet (Imodium Tablet) (05/11/22 12:45) Melatonin Tablet (Melatonin Tablet) (05/11/22 12:45) Polyethylene Glycol Powder Pkt (Miralax (11/21/22 21:00) Ondansetron Oral Dissolve Tab (Zofran (05/11/22 12:45) Senna S Tablet (Senokot S Tablet) (05/11/22 21:00) Acetaminophen Tablet/Caplet (Tylenol T (05/11/22 12:45) Code/Resuscitation (05/11/22 12:45) Initiate Admission Nursing Pro .admission (05/11/22 12:45) Admission Arrival Bed Request (05/11/22 13:33) General/Regular (05/11/22 Lunch) Patient Visit (05/11/22 ) Pt Eval Moderate Complexity (05/11/22 ) Gait Training, Ea 15 Min (05/11/22 ) Functional Activities, Ea 15 (05/11/22 ) Patient Visit (05/11/22 ) Functional Activities, Ea 15 (05/11/22 ) Exercise Therap, Ea 15 Min (05/11/22 ) Acetaminophen Tablet (Tylenol Tablet) (05/11/22 16:00) Diazepam Tablet (Valium Tablet) (05/11/22 15:45) Diclofenac 1% Gel (Voltaren 1% Gel) (05/11/22 15:45) Doxazosin Tablet (Cardura Tablet) (05/11/22 21:00) Niacin Tablet (Niacin Tablet) (05/11/22 21:00) Oxycodone Immediate Rel Tablet (Oxyir Ta (05/11/22 15:45) Pantoprazole Tablet (Protonix Tablet) (05/12/22 09:00) Rifaximin Tablet (Xifaxan Tablet) (05/11/22 21:00) Rx-Tramadol Hcl (Rx-Ultram) (05/11/22 15:45) (Nf) Ascorbate Calcium (Vitamin C) (05/12/22 09:00) (Nf) Aspirin (Aspirin Ec) (05/11/22 21:00) (Nf) Betamethasone Dipropionate (Sernivo (05/11/22 15:45) (Nf) Calcium Carbonate/Vitamin D3 (Calci (05/11/22 21:00) (Nf) Fenofibrate Nanocrystallized (Fenof (05/11/22 21:00) (Nf) Glucosamine/D3/Boswellia Cindy (Ost (05/12/22 09:00) (Nf) Melatonin (05/11/22 15:45) (Nf) Multivit-Min/Ferrous Fumarate (Mult (05/12/22 09:00) Ascorbic Acid Tablet (Vitamin C Tablet) (05/12/22 08:00) Melatonin Tablet (Melatonin Tablet) (05/11/22 16:00) Fenofibrate,Micronized Capsule (Lofibra (05/11/22 21:00) Therapeutic Multivitamin Tab (Vitamins, (05/12/22 07:00) Calcium Carbonate W/Vitamin D3 (Calcarb (05/11/22 18:00) Aspirin Enteric Coated Tablet (Ecotrin T (05/11/22 18:00) Tramadol Tablet (Ultram Tablet) (05/11/22 16:00) Iv Heplock-Insert (Order) (05/11/22 18:09) Ns Iv 1000 Ml (Sodium Chloride 0.9%) (05/11/22 18:15) Ondansetron Injection (Zofran Injectio (05/11/22 18:15) Promethazine Injection (Phenergan Injec (05/11/22 18:15) Rug Setter [place]-Inpt Rehab Con (05/11/22 19:02) Patient Visit (05/12/22 ) Gait Training, Ea 15 Min (05/12/22 ) Exercise Therap, Ea 15 Min (05/12/22 ) Functional Activities, Ea 15 (05/12/22 ) Patient Visit (05/12/22 ) Speech Sound Lang Comp (05/12/22 ) Treat. Speech/Lang/Voice (05/12/22 ) Rehab Nursing Orders: Ongoing Assess. of Function Status, Bladder Management, Bladder Scan, Bladder Training, Bowel Management, Bowel Training, Disease Management & Educaiton, DVT Prophylaxis, Fall Prevention, Fluid/Electrolyte/Nutrition Mgmt, Infection Prevention, Medication Management & Education, Management of Risks & Complications, Management of Skin Intergrity, Nutrition Management, Pain Management, Patient/Family Support, Safety Management, Wound Management Intensity of Therapy to be met Patient to be seen: Min.3h per day/5 of 7d PT IPOC Problem List: Activity Tolerance, Functional Strength, Gait, Transfer Treatment Plan: Continue Plan of Care Bed Mobility, Education, Functional Activity Christophe, Functional Strength, Group Therapy, Gait, Safety, Therapeutic Exercise, Transfers Treatment Duration: Jun 20, 2022 Frequency: At least 5 of 7 days/Wk (IRF) Estimated Hrs Per Day: 1.5 hours per day OT IPOC Problems: Decreased Activ Tolerance, Decreased UE Strength, Impaired Funct Balance, Impaired I ADL's, Impaired Self-Care Skills OT Treatment, Training and Edu: Yes Plan of Care: ADL Retraining, Functional Mobility, Group Exercise/Act as Ind, UE Funct Exercise/Act Treatment Duration: Jun 05, 2022 Frequency: At least 5 of 7 days/Wk (IRF) Estimated Hrs Per Day: 1.[address] IPOC Speech Therapy Treatment Plan: Discontinue ST Treatment Duration: May 12, 2022 Frequency: Modified Program (IRF) Estimated Hrs Per Day: Other Rug Setter [place]/Case Mgmt Rug Setter [place]/Case Managemen: Discharge Planning Other Services: obtain med records from dr marmolejo in [place] and the [facility] [place] Dietitian/Operations Developer Dietitian/Operations Developer to monitor nutritional status and make changes and/or recommendations as needed and work with speech pathology on dietary upgrades as the occur. Physician IPOC Medical Issues being managed closely and that require the 24 hour availability of a physician: Recent COVID then elective orthopedic surgery now with slow recovery and adva nced age with hypoxia and recurrent and refractory nausea will require close monitoring and intensive medical management Medical Issues: Bowel/Bladder Function, DVT Prophylaxis, Falls Precautions, Fluid/Electrolyte/Nutrition Balance, Infection Protection, Pain Management, Wound Care Brief Synthesis of Preadmission Screen, Post-Admission Evaluation, and Therapy Evaluations: PT OT will focus on regaining function with use of asssitive devices in order to return back to independent living and ADL's Medical Prognosis: Good Anticipated Length of Stay: 10 days AMY GROVES DO May 12, 2022 06:26
--- NOTE | 2022-05-12 06:26 | PM&R Progress Note ---
Subjective HPI/CC On Admission Date Seen by Provider: May 12, 2022 Time Seen by Provider: 08:30 Subjective/Events-last exam 05/12/2022: Doing better Slow recovery IVF will continue Zofran scheduled has been helpful BP ok O2 not needed anymore hgb 10.5 Review of Systems General: Fatigue, Malaise Objective Exam Vital Signs Vital Signs Date Time Temp Pulse Resp B/P (MAP) Pulse Ox O2 Delivery O2 Flow Rate FiO2 05/12/22 21:00 Room Air 05/12/22 19:47 37.1 91 16 117/68 (84) 94 05/11/22 15:03 Capillary Refill : General Appearance: No Apparent Distress, WD/WN, Chronically ill, Obese HEENT: PERRL/EOMI, Normal ENT Inspection, Pharynx Normal Neck: Full Range of Motion, Normal Inspection, Non Tender, Supple, Carotid Bruit Respiratory: Chest Non Tender, Lungs Clear, Normal Breath Sounds, No Accessory Muscle Use, No Respiratory Distress Cardiovascular: Regular Rate, Rhythm, No Edema, No Gallop, No JVD, No Murmur, Normal Peripheral Pulses Gastrointestinal: Normal Bowel Sounds, No Organomegaly, No Pulsatile Mass, Non Tender, Soft Back: Normal Inspection, No CVA Tenderness, No Vertebral Tenderness Extremity: Normal Capillary Refill, Normal Inspection, Normal Range of Motion (except left leg), Non Tender, No Calf Tenderness, No Pedal Edema Neurologic/Psychiatric: Alert, Oriented x3, No Motor/Sensory Deficits, Normal 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 FIM Transfers Therapy Code Descriptions/Definitions Functional [place] Measure: 0=Not Assessed/NA 4=Minimal Assistance 1=Total Assistance 5=Supervision or Setup 2=Maximal Assistance 6=Modified [place] 3=Moderate Assistance 7=Complete IndependenceSCALE: Activities may be completed with or without assistive devices. 0-Nyidaxzsop-gtfffvg completes the activity by him/herself with no assistance from a helper. 5-Set-up or Clean-up Assistance-helper sets up or cleans up; patient completes activity. [place] assists only prior to or following the activity. 4-Supervision or Touching Assistance-helper provides verbal cues and/or touch ing/steadying and/or contact guard assistance as patient completes activity. Assistance may be provided throughout the activity or intermittently. 3-Partial/Moderate Assistance-helper does LESS THAN HALF the effort. [place] lifts, holds or supports trunk or limbs, but provides less than half the effort. 2-Substantial/Maximal Assistance-helper does MORE THAN HALF the effort. [place] lifts or holds trunk or limbs and provides more than half the effort. 4-Ihgplqvka-ijpfvd does ALL the effort. Patient does none of the effort to complete the activity. Or, the assistance of 2 or more helpers is required for the patient to complete the activity. If activity was not attempted, code reason: 7-Patient Refused. 9-Not Applicable-not attempted and the patient did not perform the activity bef ore the current illness, exacerbation or injury. 10-Not Attempted due to Environmental Limitations-(lack of equipment, weather restraints, etc.). 88-Not Attempted due to Medical Conditions or Safety Concerns. Roll Left to Right (QC): 3 Sit to Lying (QC): 3 Sit to Stand (QC): 3 Chair/Uoa-ta-Nmeyk Xfer(QC): 3 Car Transfer (QC): 3 Gait Training Does the Patient Walk?: Yes Walk 10 feet (QC): 3 Walk 50 ft with 2 Turns(QC): 88 Walk 150 ft (QC): 88 Walking 10ft/uneven surface-QC: 3 Gait Assistive Device: FWW Wheelchair Training Does the Pt Use a Wheelchair?: Yes Distance: 50 Wheel 50 ft with 2 turns (QC): 4 Wheel 150 ft (QC): 1 Type of Wheelchair: Manual Stair Training #of Steps: 0 1 Step (curb) (QC): 88 4 Steps (QC): 88 12 Steps (QC): 88 Balance Picking up an Object (QC): 4 ADL-Treatment Eating (QC): 5 (set up. Assist opening salad dressing) Oral Hygiene (QC): 6 (IND seated at sink.) Shower/Bathe Self (QC): 3 (Min A with lower legs/feet. ) Upper Body Dressing (QC): 5 Lower Body Dressing (QC): 4 (CGA. ) On/Off Footwear (QC): 4 (CGA for dynamic sitting balance as pt leaned forward) Toileting Hygiene (QC): 4 (CGA. Pt able to manage hygiene and clothing) Assessment/Plan Assessment and Plan Assess & Plan/Chief Complaint A: S/P LTKA due to osteoarthritis Dr Price 05/05/2022 Weakness Diarrhea COVID recent 3 weeks ago s/p Paxlovid Hypoxia requiring O2 new onset h/o falls HTN Nausea Anxiety Diverticulosis BPH Osteoarthritis Subacute nausea Dehydration RBBB Plan: Pain control Nausea treatment IVF Pain control Aggressive PT OT 05/12/2022: IVF Supportive care (1) History of arthroplasty of right knee (2) Nausea (3) History of COVID-19 (4) Hypoxia AMY GROVES DO May 12, 2022 06:25
[2022-05-12] MEDS: polyethylene glycoL POWDER 17 GM (MIRALAX) PACK PO SCH ×2 (07:40→21:01)
[2022-05-12] MEDS: DOCUSATE SODIUM 100 MG (COLACE) CAP PO SCH ×2 (07:40→21:01)
[2022-05-12] MEDS: SENNA W/DOCUSATE (SENOKOT S) TABLET PO SCH ×2 (07:40→21:01)
[2022-05-12 07:47] VITALS: BP 118/71
[2022-05-12] MEDS: ACETAMINOPHEN 500 MG TAB (TYLENOL) PO SCH ×3 (08:54→23:27)
[2022-05-12] MEDS: RIFAXIMIN 550 MG TABLET (XIFAXAN) PO SCH ×3 (08:54→21:22)
[2022-05-12] MEDS: CALCIUM CARB + VIT D 600 MG (CALCARB + D) TAB PO SCH ×2 (08:55→17:08)
[2022-05-12] MEDS: PANTOPRAZOLE 40 MG (PROTONIX) TAB PO SCH (08:55)
[2022-05-12] MEDS: ASCORBIC ACID (VIT C) 500 MG TABLET PO SCH (08:55)
[2022-05-12] MEDS ORDERED: NON-FORMULARY MEDICATION 1 EA EA (Ascorbate Calcium (Vitamin C) 500 MG) PO SCH (09:00)
[2022-05-12] MEDS ORDERED: FERROUS FUMARATE PO SCH (09:00)
[2022-05-12] MEDS ORDERED: [UNRECOGNIZED DRUG - OTHER] PO SCH (09:00)
[2022-05-12] MEDS ORDERED: MULTIVIT MIN PO SCH (09:00)
--- NOTE | 2022-05-12 09:26 | Physical Therapy Daily Note ---
PT Daily Note-Current Subjective Patient sitting in chair upon PT arrival, agreeable to treatment. Rates pain at 6-7/10 in right knee. Pain Section J - Health Conditions 1. Rarely or not at all 2. Occasionally 3. Frequently 4. Almost constantly 8. Unable to answer Pain Effect on Sleep: 2 Pain Interference with Therapy: 3 Pain Interference w/Day-to-Day: 3 Mental Status Patient Orientation: Person, Place, Time, Situation Transfers SCALE: Activities may be completed with or without assistive devices. 3-Kankzxqfiq-cnjesce completes the activity by him/herself with no assistance from a helper. 5-Set-up or Clean-up Assistance-helper sets up or cleans up; patient completes activity. [place] assists only prior to or following the activity. 4-Supervision or Touching Assistance-helper provides verbal cues and/or touching/steadying and/or contact guard assistance as patient completes activity. Assistance may be provided throughout the activity or intermittently. 3-Partial/Moderate Assistance-helper does LESS THAN HALF the effort. [place] lifts, holds or supports trunk or limbs, but provides less than half the effort. 2-Substantial/Maximal Assistance-helper does MORE THAN HALF the effort. [place] lifts or holds trunk or limbs and provides more than half the effort. 1-Beyzdkvha-spgfpd does ALL the effort. Patient does none of the effort to complete the activity. Or, the assistance of 2 or more helpers is required for the patient to complete the activity. If activity was not attempted, code reason: 7-Patient Refused. 9-Not Applicable-not attempted and the patient did not perform the activity before the current illness, exacerbation or injury. 10-Not Attempted due to Environmental Limitations-(lack of equipment, weather restraints, etc.). 88-Not Attempted due to Medical Conditions or Safety Concerns. Roll Left & Right (QC): 3 Sit to Lying (QC): 3 Lying to Sitting/Side of Bed(Q: 3 Sit to Stand (QC): 4 Chair/Aso-lz-Qrxfh Xfer(QC): 4 Toilet Transfer (QC): 4 Weight Bearing Right Lower Extremity: Right Full Weight Bearing Left Lower Extremity: Left Weight Bearing/Tolerated Gait Training Does the Patient Walk?: Yes Distance: 20', 30', 60', 30', 30', 60' Walk 10 feet (QC): 4 Walk 50 ft with 2 Turns(QC): 4 Gait Persons Needed: 1 Gait Assistive Device: FWW Exercises Supine Ex: Ankle pumps, Quad Set, Glut sets Supine Reps: 20 Seated Therapy Exercises: Long arc quads, Hip flexion, Hamstring Curls, Hip abd/add Seated Reps: 20 NuStep Minutes: 10 NuStep Workload: 1 Assessment Current Status: Fair Progress Patient tolerated treatment better this session than last. He reports minimally less left knee pain, however continues to demonstrate ~ 20 degrees lacking TKE and 80 degrees flexion AROM. Patient performs all bed mobility with min a for left LE and all transfers with CGA. Patient ambulates 20', 30', 60', 30', 30', 60' with FWW, with CGA and verbal cues for safety, progression, posture and proper gait pattern. After first 20 feet, he requests to use the BR. Patient th en ambulates towards the therapy gym with numerous sitting rest breaks. Patient performs the Nu Step Level 1 with UEs x 10 minutes to improve ROM, strength, and endurance. Patient ambulates back to his room with 1 sitting rest break and returns to bed. Patient in bed post treatment with all needs met, nursing notified, call light in hand. PT Employment Consultant Goals Employment Consultant Goals PT M[facility] Goals Time Frame: Jun 20, 2022 Roll Left & Right (QC): 6 Sit to Lying (QC): 6 Lying-Sitting on Side/Bed(QC): 6 Sit to Stand (QC): 6 Chair/Xix-js-Tuyhb Xfer(QC): 6 Toilet Transfer (QC): 6 Car Transfer (QC): 6 Does the Patient Walk: Yes Walk 10 feet (QC): 6 Walk 50ft with 2 Turns (QC): 6 Walk 150 ft (QC): 4 Walking 10ft on Uneven Surface: 6 1 Step (curb) (QC): 3 4 Steps (QC): 3 12 Steps (QC): 3 Picking up an Object (QC): 6 Does the Pt use WC or Scooter?: Yes Wheel 50 feet with 2 turns (QC: 6 Type: Manual Wheel 150 feet: 6 Type: Manual PT Plan Treatment/Plan Treatment Plan: Continue Plan of Care Treatment Plan: Bed Mobility, Education, Functional Activity Christophe, Functional Strength, Group Therapy, Gait, Safety, Therapeutic Exercise, Transfers Treatment Duration: Jun 20, 2022 Frequency: At least 5 of 7 days/Wk (IRF) Estimated Hrs Per Day: 1.5 hours per day Patient and/or Family Agrees t: Yes Safety Risks/Education Patient Education: Gait Training, Transfer Techniques Teaching Recipient: Patient Teaching Methods: Demonstration, Discussion Response to Teaching: Verbalize Understanding, Return Demonstration Time Time In: 755 Time Out: 910 DATE: May 12, 2022 Total Billed Treatment Time: 75 Total Billed Treatment Visit, Gait (25), Ex (30), FA (20) AKIRA ADAMSON PT May 12, 2022 09:26
[2022-05-12] MEDS: NS IV 1000 ML 1,000 ML IV SCH (11:15)
--- NOTE | 2022-05-12 11:27 | Occupational Ther Daily Note ---
OT Current Status-Daily Note Subjective Pt in bed, agreeable to OT Tx. Pt declines ADLs at this time. ADL-Treatment Therapy Code Descriptions/Definitions Functional [place] Measure: 0=Not Assessed/NA 4=Minimal Assistance 1=Total Assistance 5=Supervision or Setup 2=Maximal Assistance 6=Modified [place] 3=Moderate Assistance 7=Complete IndependenceSCALE: Activities may be completed with or without assistive devices. 5-Bjbykmjvxk-bvqfzjk completes the activity by him/herself with no assistance from a helper. 5-Set-up or Clean-up Assistance-helper sets up or cleans up; patient completes activity. [place] assists only prior to or following the activity. 4-Supervision or Touching Assistance-helper provides verbal cues and/or touchin g/steadying and/or contact guard assistance as patient completes activity. Assistance may be provided throughout the activity or intermittently. 3-Partial/Moderate Assistance-helper does LESS THAN HALF the effort. [place] lifts, holds or supports trunk or limbs, but provides less than half the effort. 2-Substantial/Maximal Assistance-helper does MORE THAN HALF the effort. [place] lifts or holds trunk or limbs and provides more than half the effort. 9-Nogsuedhh-mpwrei does ALL the effort. Patient does none of the effort to complete the activity. Or, the assistance of 2 or more helpers is required for the patient to complete the activity. If activity was not attempted, code reason: 7-Patient Refused. 9-Not Applicable-not attempted and the patient did not perform the activity before the current illness, exacerbation or injury. 10-Not Attempted due to Environmental Limitations-(lack of equipment, weather restraints, etc.). 88-Not Attempted due to Medical Conditions or Safety Concerns. On/Off Footwear: 4 (SBA at EOB. VCs required to attempt task and for technique) Other Treatment Pt in bed, transferred supine to sit EOB, SBA with increased time getting out of bed towards pt's L side. Pt sat EOB to don gripper socks, encouragement required for pt to attempt task himself. CGA sit to stand from EOB. Pt used FWW to perform functional mobility to therapy gym, CGA, no seated rest break. OT tx focused on increasing BUE Strength and activity tolerance. Pt completed arm bike x15 mins, 20 Watt resistance (5 mins backwards, 10 mins forwards). Pt then completed pipe tree task, 1lb wrist weights BUEs, Pt able to complete x5 patterns, moderate encouragement to participate in last 30 mins of treatment. Pt c/o fatigue and wanting to go back to his room. OT educated pt on rehab process and purpose/benefit of OT tx, he verbalized understanding. Pt returned to his room using FWW, CGA, no seated rest breaks, transferring to recliner. 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 2=Patient will verbalize/demonstrate understanding of assistive devices/modif ications for ADL. 3=Patient will improve strength/tolerance for activity to enable patient to perform ADL's. OT Education/Plan Problem List/Assessment Assessment: Decreased Activ Tolerance, Decreased UE Strength, Impaired Funct Balance, Impaired I ADL's, Impaired Self-Care Skills Discharge Recommendations Plan/Recommendations: Continue POC Treatment Plan/Plan of Care Patient would benefit from OT for education, treatment and training to promote independence in ADL's, mobility, safety and/or upper extremity function for ADL's. Plan of Care: ADL Retraining, Functional Mobility, Group Exercise/Act as Ind, UE Funct Exercise/Act Treatment Duration: Jun 05, 2022 Frequency: At least 5 of 7 days/Wk (IRF) Estimated Hrs Per Day: 1.5 hours per day Agreement: Yes Rehab Potential: Fair Time Start Time: 10:45 Stop Time: 12:00 DATE: May 12, 2022 Total Time Billed (hr/min): 75 Billed Treatment Time 1, ADL (15'), EX (15'), FA 3 (45') THOMAS STEWART OT May 12, 2022 11:27
--- NOTE | 2022-05-12 12:29 | ST Cognitive Linguistic Eval ---
Speech Evaluation-General Medical Diagnosis s/p Left TKA Onset Date: May 07, 2022 Therapy Diagnosis Therapy Diagnosis: Intact (Baseline) Cognition Precautions Precautions: Fall Precautions/Isolations: Fall Prevention, Standard Precautions Referral Referring Physician: Dr. Bloom Reason for Referral: Evaluation/Treatment Medical History Current History The patient is an 86 year-old male with a past medical history of HTN, diverticulitis, BPH, OA, TURBT, and skin CA, who presented to [facility] following a left TKA. Reviewed History: Yes Social History Current Living Status: Alone Speech PLF-Current Status Language Eval: Auditory Comprehends Simple Yes/No Ques: Functional Indent/Objects Multiple [place]: Functional Follows 1-Step Commands: Functional Follows General Conversations: Functional Language Eval: Verbal Language Completes Spontaneous Greeting: Functional Produces Auto, Serial Info: Functional Word Finding: Mild Requests Basic Needs: Functional States Basic Personal Info: Functional Language Evaluation: Reading Follows Simple Written Direct: Functional Language Evaluation: Writing Writes to Simple Dictation: Functional Cognitive Patient Orientation The patient was independently oriented to self, location, month, day of the week, and year. Objective Cognitive Domain Attention: WNL Memory: Mild Problem Solving: Functional Visuospatial Skills: WNL Composite Severity Rating: WNL Clock Drawing Severity Rating: WNL Objective Formal/Standardized Tests [facility] Mental Status Exam (UMS) Results The patient displayed a result of +28/30 correlating to cognitive linguistic skills within normal limits. Oral Motor/Speech Production The patient does not display dysarthria or apraxia of speech. The patient is 100% intelligible in known and unknown contexts. Impression The patient displayed cognitive linguistic skills within normal limits and at reported baseline. Speech-Plan Treatment Plan Speech Therapy Treatment Plan: Discontinue ST Treatment Duration: May 12, 2022 Frequency: 1 time per week Estimated Hrs Per Day: .5 hour per day Rehab Potential: Fair Safety Risks/Education Teaching Recipient: Patient Teaching Methods: Discussion Response to Teaching: Verbalize Understanding Education Topics Provided: Results, Recommendations, Plan of Care Time Speech Therapy Time In: 10:00 Speech Therapy Time Out: 10:30 DATE: May 12, 2022 Total Billed Time: 30 Billed Treatment Time 1, LUISA MILIAN ELIZABETH ST May 12, 2022 12:29
[2022-05-12] MEDS: ASPIRIN E.C. 81 MG (ECOTRIN) TAB PO SCH (17:07)
[2022-05-12 19:47] VITALS: BP 117/68
[2022-05-12] MEDS: FENOFIBRATE 134 MG (LOFIBRA) CAPSULE PO SCH (21:21)
[2022-05-12] MEDS: NIACIN 500 MG TABLET PO SCH (21:21)
[2022-05-12] MEDS: doxAzosin 2 MG (CARDURA) TAB PO SCH (21:36)
[2022-05-13] MEDS: NS IV 1000 ML 1,000 ML IV SCH (03:42)
--- NOTE | 2022-05-13 05:26 | PM&R Progress Note ---
Subjective HPI/CC On Admission Date Seen by Provider: May 13, 2022 Time Seen by Provider: 13:00 Subjective/Events-last exam 05/13/2022: Doing better COVID was 04/25/22 Nausea persists so will continue scheduled Zofran 05/12/2022: Doing better Slow recovery IVF will continue Zofran scheduled has been helpful BP ok O2 not needed anymore hgb 10.5 Review of Systems General: Fatigue, Malaise Objective Exam Vital Signs Vital Signs Date Time Temp Pulse Resp B/P (MAP) Pulse Ox O2 Delivery O2 Flow Rate FiO2 05/13/22 08:00 Room Air 05/13/22 07:16 36.5 100 18 125/60 (81) 92 05/11/22 15:03 Capillary Refill : General Appearance: No Apparent Distress, WD/WN, Chronically ill, Obese HEENT: PERRL/EOMI, Normal ENT Inspection, Pharynx Normal Neck: Full Range of Motion, Normal Inspection, Non Tender, Supple, Carotid Bruit Respiratory: Chest Non Tender, Lungs Clear, Normal Breath Sounds, No Accessory Muscle Use, No Respiratory Distress Cardiovascular: Regular Rate, Rhythm, No Edema, No Gallop, No JVD, No Murmur, Normal Peripheral Pulses Gastrointestinal: Normal Bowel Sounds, No Organomegaly, No Pulsatile Mass, Non Tender, Soft Back: Normal Inspection, No CVA Tenderness, No Vertebral Tenderness Extremity: Normal Capillary Refill, Normal Inspection, Normal Range of Motion (except left leg), Non Tender, No Calf Tenderness, No Pedal Edema Neurologic/Psychiatric: Alert, Oriented x3, No Motor/Sensory Deficits, Normal 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 FIM Transfers Therapy Code Descriptions/Definitions Functional [place] Measure: 0=Not Assessed/NA 4=Minimal Assistance 1=Total Assistance 5=Supervision or Setup 2=Maximal Assistance 6=Modified [place] 3=Moderate Assistance 7=Complete IndependenceSCALE: Activities may be completed with or without assistive devices. 1-Lekfupebqm-sfjrbxy completes the activity by him/herself with no assistance from a helper. 5-Set-up or Clean-up Assistance-helper sets up or cleans up; patient completes activity. [place] assists only prior to or following the activity. 4-Supervision or Touching Assistance-helper provides verbal cues and/or touching/steadying and/or contact guard assistance as patient completes activity. Assistance may be provided throughout the activity or intermittently. 3-Partial/Moderate Assistance-helper does LESS THAN HALF the effort. [place] lifts, holds or supports trunk or limbs, but provides less than half the effort. 2-Substantial/Maximal Assistance-helper does MORE THAN HALF the effort. [place] lifts or holds trunk or limbs and provides more than half the effort. 4-Dqizrxaoy-omqzfb does ALL the effort. Patient does none of the effort to complete the activity. Or, the assistance of 2 or more helpers is required for the patient to complete the activity. If activity was not attempted, code reason: 7-Patient Refused. 9-Not Applicable-not attempted and the patient did not perform the activity before the current illness, exacerbation or injury. 10-Not Attempted due to Environmental Limitations-(lack of equipment, weather restraints, etc.). 88-Not Attempted due to Medical Conditions or Safety Concerns. Roll Left to Right (QC): 3 Sit to Lying (QC): 3 Sit to Stand (QC): 4 Chair/Xvg-ix-Zfbtm Xfer(QC): 4 Car Transfer (QC): 3 Gait Training Does the Patient Walk?: Yes Distance: 20', 30', 60', 30', 30', 60' Walk 10 feet (QC): 4 Walk 50 ft with 2 Turns(QC): 4 Walk 150 ft (QC): 88 Walking 10ft/uneven surface-QC: 3 Gait Persons Needed: 1 Gait Assistive Device: FWW Wheelchair Training Does the Pt Use a Wheelchair?: Yes Distance: See PT goals Wheel 50 ft with 2 turns (QC): 4 Wheel 150 ft (QC): 1 Type of Wheelchair: Manual Stair Training #of Steps: 0 1 Step (curb) (QC): 88 4 Steps (QC): 88 12 Steps (QC): 88 Balance Picking up an Object (QC): 4 ADL-Treatment Eating (QC): 5 (set up. Assist opening salad dressing) Oral Hygiene (QC): 6 (IND seated at sink.) Shower/Bathe Self (QC): 3 (Min A with lower legs/feet. ) Upper Body Dressing (QC): 5 Lower Body Dressing (QC): 4 (CGA. ) On/Off Footwear (QC): 4 (SBA at EOB. VCs required to attempt task and for technique) Toileting Hygiene (QC): 4 (CGA. Pt able to manage hygiene and clothing) Assessment/Plan Assessment and Plan Assess & Plan/Chief Complaint A: S/P LTKA due to osteoarthritis Dr Price 05/05/2022 Weakness Diarrhea COVID recent 3 weeks ago s/p Paxlovid Hypoxia requiring O2 new onset h/o falls HTN Nausea Anxiety Diverticulosis BPH Osteoarthritis Subacute nausea Dehydration requiring 48 hours of IVF RBBB Plan: Pain control Nausea treatment IVF Pain control Aggressive PT OT 05/12/2022: IVF Supportive care 05/13/2022: Monitor closely HLIVF (1) History of arthroplasty of right knee (2) Nausea (3) History of COVID-19 (4) Hypoxia AMY GROVES DO May 13, 2022 05:26
[2022-05-13] MEDS: ONDANSETRON 4 MG/2 ML (SDV) Z0FRAN IVP SCH ×3 (05:49→18:13)
[2022-05-13] MEDS: MULTIVIT W/MINERALS TAB (THERAGRAN M) PO SCH (05:49)
[2022-05-13 07:16] VITALS: BP 125/60
[2022-05-13] MEDS: RIFAXIMIN 550 MG TABLET (XIFAXAN) PO SCH ×3 (08:03→20:42)
[2022-05-13] MEDS: ASCORBIC ACID (VIT C) 500 MG TABLET PO SCH (08:03)
[2022-05-13] MEDS: ACETAMINOPHEN 500 MG TAB (TYLENOL) PO SCH ×2 (08:03→16:33)
[2022-05-13] MEDS: PANTOPRAZOLE 40 MG (PROTONIX) TAB PO SCH (08:03)
[2022-05-13] MEDS: CALCIUM CARB + VIT D 600 MG (CALCARB + D) TAB PO SCH ×2 (08:03→18:14)
[2022-05-13] MEDS: DOCUSATE SODIUM 100 MG (COLACE) CAP PO SCH ×2 (08:06→20:55)
[2022-05-13] MEDS: SENNA W/DOCUSATE (SENOKOT S) TABLET PO SCH ×2 (08:06→20:55)
[2022-05-13] MEDS: polyethylene glycoL POWDER 17 GM (MIRALAX) PACK PO SCH ×2 (08:06→20:55)
[2022-05-13] MEDS ORDERED: TRIAMCINOLONE 0.5% CR (KENALOG) 15 GM TUBE TOP PRN (08:45)
--- NOTE | 2022-05-13 08:58 | Physical Therapy Daily Note ---
PT Daily Note-Current Subjective Pt. agrees to Rx but states he is tired and has pain in L knee at 8/10 before Rx, nursing gave pain meds after this comment. "I had Covis you know" Pain Numeric Pain Scale: 8 Location: Left Location Body Site: Knee Pain Description: Ache Section J - Health Conditions 1. Rarely or not at all 2. Occasionally 3. Frequently 4. Almost constantly 8. Unable to answer Pain Effect on Sleep: 2 Pain Interference with Therapy: 3 Pain Interference w/Day-to-Day: 3 Mental Status Patient Orientation: Normal For Age Attachments: IV Transfers SCALE: Activities may be completed with or without assistive devices. 3-Citypfpnxt-evnalea completes the activity by him/herself with no assistance from a helper. 5-Set-up or Clean-up Assistance-helper sets up or cleans up; patient completes activity. [place] assists only prior to or following the activity. 4-Supervision or Touching Assistance-helper provides verbal cues and/or touching/steadying and/or contact guard assistance as patient completes activity. Assistance may be provided throughout the activity or intermittently. 3-Partial/Moderate Assistance-helper does LESS THAN HALF the effort. [place] lifts, holds or supports trunk or limbs, but provides less than half the effort. 2-Substantial/Maximal Assistance-helper does MORE THAN HALF the effort. [place] lifts or holds trunk or limbs and provides more than half the effort. 8-Aocmbrbef-ikjwpq does ALL the effort. Patient does none of the effort to complete the activity. Or, the assistance of 2 or more helpers is required for the patient to complete the activity. If activity was not attempted, code reason: 7-Patient Refused. 9-Not Applicable-not attempted and the patient did not perform the activity before the current illness, exacerbation or injury. 10-Not Attempted due to Environmental Limitations-(lack of equipment, weather restraints, etc.). 88-Not Attempted due to Medical Conditions or Safety Concerns. Roll Left & Right (QC): 6 Sit to Lying (QC): 4 Lying to Sitting/Side of Bed(Q: 6 Sit to Stand (QC): 6 Chair/Hxm-li-Nojrf Xfer(QC): 6 Toilet Transfer (QC): 6 educated regarding safe practices of sit to stand and stand to sit using UEs properly etc. Weight Bearing Right Lower Extremity: Right Full Weight Bearing Left Lower Extremity: Left Weight Bearing/Tolerated Gait Training Does the Patient Walk?: Yes Walk 10 feet (QC): 4 Walk 50 ft with 2 Turns(QC): 4 Gait Persons Needed: 1 Gait Assistive Device: FWW step to gait with heavy wt bearing on FWW, requests rest breaks about every 40 to 50 ft Exercises Supine Ex: Ankle pumps, Quad Set, Rolling, Heel Slides, Short Arc Quads, Straight leg raise (indep), Hip abd/add Supine Reps: 12 (x2) Seated Therapy Exercises: Ankle pumps, Sit to stand, Long arc quads, Hamstring Curls Seated Reps: 12 NuStep Minutes: 8 NuStep Workload: 1 Treatments above as well as toileting, with min asst clothing, handwashing with assist reaching soap, up in recliner after Rx, with priest at hand Assessment Current Status: Good Progress pain and fatigue limit pt. . AROM: 0 10 75, assisted ROM :0 5 85 PT Leather Craftsman Goals Retirement Goals PT Leather Craftsman Goals Time Frame: Jun 20, 2022 Roll Left & Right (QC): 6 Sit to Lying (QC): 6 Lying-Sitting on Side/Bed(QC): 6 Sit to Stand (QC): 6 Chair/Jgt-oc-Sfuak Xfer(QC): 6 Toilet Transfer (QC): 6 Car Transfer (QC): 6 Does the Patient Walk: Yes Walk 10 feet (QC): 6 Walk 50ft with 2 Turns (QC): 6 Walk 150 ft (QC): 4 Walking 10ft on Uneven Surface: 6 1 Step (curb) (QC): 3 4 Steps (QC): 3 12 Steps (QC): 3 Picking up an Object (QC): 6 Does the Pt use WC or Scooter?: Yes Wheel 50 feet with 2 turns (QC: 6 Type: Manual Wheel 150 feet: 6 Type: Manual PT Plan Treatment/Plan Treatment Plan: Continue Plan of Care Treatment Plan: Bed Mobility, Education, Functional Activity Christophe, Functional Strength, Group Therapy, Gait, Safety, Therapeutic Exercise, Transfers Treatment Duration: Jun 20, 2022 Frequency: At least 5 of 7 days/Wk (IRF) Estimated Hrs Per Day: 1.5 hours per day Patient and/or Family Agrees t: Yes Safety Risks/Education Patient Education: Gait Training, Transfer Techniques, Correct Positioning, Disease Process, Safety Issues Teaching Recipient: Patient Teaching Methods: Demonstration, Discussion Response to Teaching: Verbalize Understanding, Return Demonstration, Reinforcement Needed Time Time In: 730 Time Out: 900 DATE: May 13, 2022 Total Billed Treatment Time: 90 Total Billed Treatment 1,GT30m,FA30m,EX30m GREGORY HANKS PHLEBOTOMIST May 13, 2022 08:58
--- NOTE | 2022-05-13 11:02 | Occupational Ther Daily Note ---
OT Current Status-Daily Note Subjective Pt in recliner, agreeable to OT Tx. Rates pain in LLE 3-4/10 at rest and 8-9/10 when up and moving. Mental Status/Objective Attachments: IV ADL-Treatment Therapy Code Descriptions/Definitions Functional [place] Measure: 0=Not Assessed/NA 4=Minimal Assistance 1=Total Assistance 5=Supervision or Setup 2=Maximal Assistance 6=Modified [place] 3=Moderate Assistance 7=Complete IndependenceSCALE: Activities may be completed with or without assistive devices. 7-Tuuaihqzxv-irolcvi completes the activity by him/herself with no assistance from a helper. 5-Set-up or Clean-up Assistance-helper sets up or cleans up; patient completes activity. [place] assists only prior to or following the activity. 4-Supervision or Touching Assistance-helper provides verbal cues and/or touching/steadying and/or contact guard assistance as patient completes activity. Assistance may be provided throughout the activity or intermittently. 3-Partial/Moderate Assistance-helper does LESS THAN HALF the effort. [place] lifts, holds or supports trunk or limbs, but provides less than half the effort. 2-Substantial/Maximal Assistance-helper does MORE THAN HALF the effort. [place] lifts or holds trunk or limbs and provides more than half the effort. 5-Ehywvufsp-imonnq does ALL the effort. Patient does none of the effort to complete the activity. Or, the assistance of 2 or more helpers is required for the patient to complete the activity. If activity was not attempted, code reason: 7-Patient Refused. 9-Not Applicable-not attempted and the patient did not perform the activity before the current illness, exacerbation or injury. 10-Not Attempted due to Environmental Limitations-(lack of equipment, weather restraints, etc.). 88-Not Attempted due to Medical Conditions or Safety Concerns. Shower/Bathe Self (QC): 4 (VC to dry LEs.) Upper Body Dressing (QC): 5 (set up ) Lower Body Dressing (QC): 4 (SBA) On/Off Footwear: 3 (Assistance donning/doffing Tedhose, Pt able to don/doff velcro shoes.) Toileting Hygiene (QC): 4 (SBA) Other Treatment Pt in recliner, used FWW to transfer into bathroom, CGA, and onto toilet. Pt completed toileting, SBA, then transferred to KS. Pt completed showering and dressing, LH sponge provided to increase pt's independence with washing BLEs lower legs/feet. Pt sat in recliner for seated rest break, then used FWW to perform functional mobility to therapy gym, no seated rest break, CGA. OT tx focused on increasing BUE Strength and activity tolerance. Pt completed x15 mins on arm bike, 20-25 Watt resistance, no rest break. Pt then removed beads from moderate resistance theraputty (green), able to locate all beads without cues. Pt used FWW to return to his room, CGA, no seated rest break. Post tx, pt in recliner, call light in reach and all needs met. Education OT Patient Education: Correct positioning, Energy conservation, Modified ADL techniques, Progress toward Goal/Update tx plan, Purpose of tx/functional activities Teaching Recipient: Patient Teaching Methods: Discussion Response to Teaching: Verbalize Understanding OT Short Term Goals Short Term Goals Time Frame: May 25, 2022 Upper body dressin Lower body dressin Putting on/taking off footwear: 5 OT Adult And Pediatric Neurologist Goals Residential Goals Time Frame: Jun 05, 2022 Acute change in mental status: 0 Inattention: 0 Disorganized thinkin Altered level of consciousness: 0 Eating (QC): 6 Oral Hygiene (QC): 6 Toileting Hygiene (QC): 6 Shower/Bathe Self (QC): 5 Upper Body Dressing (QC): 6 Lower Body Dressing (QC): 6 On/Off Footwear (QC): 6 Additional Goals: 1-Demonstrate ADL Tasks, 2-Verbalize Understanding, 3- ImproveStrength/Christophe 1=Demonstrate adherence to instructed precautions during ADL tasks. 2=Patient will verbalize/demonstrate understanding of assistive devices/modifications for ADL. 3=Patient will improve strength/tolerance for activity to enable patient to perform ADL's. OT Education/Plan Problem List/Assessment Assessment: Decreased Activ Tolerance, Decreased UE Strength, Impaired Funct Balance, Impaired I ADL's, Impaired Self-Care Skills Discharge Recommendations Plan/Recommendations: Continue POC Treatment Plan/Plan of Care Patient would benefit from OT for education, treatment and training to promote independence in ADL's, mobility, safety and/or upper extremity function for ADL's. Plan of Care: ADL Retraining, Functional Mobility, Group Exercise/Act as Ind, UE Funct Exercise/Act Treatment Duration: Jun 05, 2022 Frequency: At least 5 of 7 days/Wk (IRF) Estimated Hrs Per Day: 1.5 hours per day Agreement: Yes Rehab Potential: Fair Time Start Time: 10:05 Stop Time: 11:35 DATE: May 13, 2022 Total Time Billed (hr/min): 90 Billed Treatment Time 1, ADL 4 (55'), EX (15'), FA (20') THOMAS STEWART OT May 13, 2022 11:02
[2022-05-13] MEDS: ASPIRIN E.C. 81 MG (ECOTRIN) TAB PO SCH (18:14)
[2022-05-13 19:31] VITALS: BP 121/70
[2022-05-13] MEDS: FENOFIBRATE 134 MG (LOFIBRA) CAPSULE PO SCH (20:42)
[2022-05-13] MEDS: NIACIN 500 MG TABLET PO SCH (20:42)
[2022-05-13] MEDS: doxAzosin 2 MG (CARDURA) TAB PO SCH (20:42)
[2022-05-14] MEDS: ONDANSETRON 4 MG/2 ML (SDV) Z0FRAN IVP SCH ×4 (00:46→17:19)
[2022-05-14] MEDS: ACETAMINOPHEN 500 MG TAB (TYLENOL) PO SCH ×3 (00:46→16:18)
--- NOTE | 2022-05-14 05:10 | PM&R Progress Note ---
Subjective HPI/CC On Admission Date Seen by Provider: May 14, 2022 Time Seen by Provider: 11:00 Subjective/Events-last exam 05/14/2022: Nausea continues Rifaximin will be held due to nausea high incidence on med profile Zofran scheduled Abd xray reveals ileus Monitor closely 05/13/2022: Doing better COVID was 04/25/22 Nausea persists so will continue scheduled Zofran 05/12/2022: Doing better Slow recovery IVF will continue Zofran scheduled has been helpful BP ok O2 not needed anymore hgb 10.5 Review of Systems General: Fatigue, Malaise Objective Exam Vital Signs Vital Signs Date Time Temp Pulse Resp B/P (MAP) Pulse Ox O2 Delivery O2 Flow Rate FiO2 05/14/22 10:25 Room Air 05/14/22 09:16 36.8 131/60 (83) 95 05/14/22 07:11 86 16 05/11/22 15:03 Capillary Refill : General Appearance: No Apparent Distress, WD/WN, Chronically ill, Obese HEENT: PERRL/EOMI, Normal ENT Inspection, Pharynx Normal Neck: Full Range of Motion, Normal Inspection, Non Tender, Supple, Carotid Bruit Respiratory: Chest Non Tender, Lungs Clear, Normal Breath Sounds, No Accessory Muscle Use, No Respiratory Distress Cardiovascular: Regular Rate, Rhythm, No Edema, No Gallop, No JVD, No Murmur, Normal Peripheral Pulses Gastrointestinal: Normal Bowel Sounds, No Organomegaly, No Pulsatile Mass, Non Tender, Soft Back: Normal Inspection, No CVA Tenderness, No Vertebral Tenderness Extremity: Normal Capillary Refill, Normal Inspection, Normal Range of Motion (except left leg), Non Tender, No Calf Tenderness, No Pedal Edema Neurologic/Psychiatric: Alert, Oriented x3, No Motor/Sensory Deficits, Normal Mood/Affect, tobacco grader II-XII Norm as Tested, Abnormal Gait, Motor Weakness Skin: Normal Color, Warm/Dry Lymphatic: No Adenopathy Results/Procedures Lab Patient resulted labs reviewed. FIM Transfers Therapy Code Descriptions/Definitions Functional [place] Measure: 0=Not Assessed/NA 4=Minimal Assistance 1=Total Assistance 5=Supervision or Setup 2=Maximal Assistance 6=Modified [place] 3=Moderate Assistance 7=Complete IndependenceSCALE: Activities may be completed with or without assistive devices. 1-Kmytygwsds-viwprfr completes the activity by him/herself with no assistance from a helper. 5-Set-up or Clean-up Assistance-helper sets up or cleans up; patient completes activity. [place] assists only prior to or following the activity. 4-Supervision or Touching Assistance-helper provides verbal cues and/or touching/steadying and/or contact guard assistance as patient completes activity. Assistance may be provided throughout the activity or intermittently. 3-Partial/Moderate Assistance-helper does LESS THAN HALF the effort. [place] lifts, holds or supports trunk or limbs, but provides less than half the effort. 2-Substantial/Maximal Assistance-helper does MORE THAN HALF the effort. [place] lifts or holds trunk or limbs and provides more than half the effort. 8-Dwqkikyab-zcljkt does ALL the effort. Patient does none of the effort to complete the activity. Or, the assistance of 2 or more helpers is required for the patient to complete the activity. If activity was not attempted, code reason: 7-Patient Refused. 9-Not Applicable-not attempted and the patient did not perform the activity before the current illness, exacerbation or injury. 10-Not Attempted due to Environmental Limitations-(lack of equipment, weather restraints, etc.). 88-Not Attempted due to Medical Conditions or Safety Concerns. Roll Left to Right (QC): 6 Sit to Lying (QC): 4 Sit to Stand (QC): 6 Chair/Tqz-qs-Omnhe Xfer(QC): 6 Car Transfer (QC): 3 Gait Training Does the Patient Walk?: Yes Distance: 20', 30', 60', 30', 30', 60' Walk 10 feet (QC): 4 Walk 50 ft with 2 Turns(QC): 4 Walk 150 ft (QC): 88 Walking 10ft/uneven surface-QC: 3 Gait Persons Needed: 1 Gait Assistive Device: FWW Wheelchair Training Does the Pt Use a Wheelchair?: Yes Distance: See PT goals Wheel 50 ft with 2 turns (QC): 4 Wheel 150 ft (QC): 1 Type of Wheelchair: Manual Stair Training #of Steps: 0 1 Step (curb) (QC): 88 4 Steps (QC): 88 12 Steps (QC): 88 Balance Picking up an Object (QC): 4 ADL-Treatment Eating (QC): 5 (set up. Assist opening salad dressing) Oral Hygiene (QC): 6 (IND seated at sink.) Shower/Bathe Self (QC): 4 (VC to dry LEs.) Upper Body Dressing (QC): 5 (set up ) Lower Body Dressing (QC): 4 (SBA) On/Off Footwear (QC): 3 (Assistance donning/doffing Tedhose, Pt able to don/doff velcro shoes.) Toileting Hygiene (QC): 4 (SBA) Assessment/Plan Assessment and Plan Assess & Plan/Chief Complaint A: S/P LTKA due to osteoarthritis Dr Price 05/05/2022 Weakness Diarrhea COVID recent 3 weeks ago s/p Paxlovid Hypoxia requiring O2 new onset h/o falls HTN Nausea Anxiety Diverticulosis BPH Osteoarthritis Subacute nausea refractory so holding Rifaximin Dehydration requiring 48 hours of IVF RBBB Ileus on xray Plan: Pain control Nausea treatment IVF Pain control Aggressive PT OT 05/12/2022: IVF Supportive care 05/13/2022: Monitor closely HLIVF 05/14/2022: KUB Hold Rifaximin (1) History of arthroplasty of right knee (2) Nausea (3) History of COVID-19 (4) Hypoxia AMY GROVES DO May 14, 2022 05:10
[2022-05-14] MEDS: MULTIVIT W/MINERALS TAB (THERAGRAN M) PO SCH (06:52)
[2022-05-14 07:11] VITALS: BP 105/65
[2022-05-14] MEDS: PANTOPRAZOLE 40 MG (PROTONIX) TAB PO SCH (08:25)
[2022-05-14] MEDS: polyethylene glycoL POWDER 17 GM (MIRALAX) PACK PO SCH ×2 (08:56→20:21)
[2022-05-14] MEDS: CALCIUM CARB + VIT D 600 MG (CALCARB + D) TAB PO SCH ×2 (08:56→17:19)
[2022-05-14] MEDS: ASCORBIC ACID (VIT C) 500 MG TABLET PO SCH (08:56)
[2022-05-14] MEDS: DOCUSATE SODIUM 100 MG (COLACE) CAP PO SCH ×2 (08:56→20:21)
[2022-05-14] MEDS: SENNA W/DOCUSATE (SENOKOT S) TABLET PO SCH ×2 (08:57→20:21)
--- NOTE | 2022-05-14 08:58 | Physical Therapy Daily Note ---
PT Daily Note-Current Subjective Upon arrival, AIR ANTISUBMARINE OFFICER was present with pt. Pt states that he feels nauseas, and weak and doesn't want to do PT. PT notifies RN on pts status, RN checks pt, stating if he wants PT its up to him. Pt required max encouragement to agree to PT. Therapist states "we will do what pt feels comfortable doing, and will go at his pace." Pain Numeric Pain Scale: 8 Location: Left Location Body Site: Knee Section J - Health Conditions 1. Rarely or not at all 2. Occasionally 3. Frequently 4. Almost constantly 8. Unable to answer Pain Effect on Sleep: 2 Pain Interference with Therapy: 3 Pain Interference w/Day-to-Day: 3 Mental Status Patient Orientation: Person, Time, Situation Transfers SCALE: Activities may be completed with or without assistive devices. 9-Nrzkkxnftv-havrpbc completes the activity by him/herself with no assistance from a helper. 5-Set-up or Clean-up Assistance-helper sets up or cleans up; patient completes activity. [place] assists only prior to or following the activity. 4-Supervision or Touching Assistance-helper provides verbal cues and/or touching/steadying and/or contact guard assistance as patient completes activity. Assistance may be provided throughout the activity or intermittently. 3-Partial/Moderate Assistance-helper does LESS THAN HALF the effort. [place] lifts, holds or supports trunk or limbs, but provides less than half the effort. 2-Substantial/Maximal Assistance-helper does MORE THAN HALF the effort. [place] lifts or holds trunk or limbs and provides more than half the effort. 0-Iakuxztjg-tlcplj does ALL the effort. Patient does none of the effort to complete the activity. Or, the assistance of 2 or more helpers is required for the patient to complete the activity. If activity was not attempted, code reason: 7-Patient Refused. 9-Not Applicable-not attempted and the patient did not perform the activity before the current illness, exacerbation or injury. 10-Not Attempted due to Environmental Limitations-(lack of equipment, weather restraints, etc.). 88-Not Attempted due to Medical Conditions or Safety Concerns. Pt wanted to remain in recliner due to not feeling well. Weight Bearing Right Lower Extremity: Right Full Weight Bearing Left Lower Extremity: Left Weight Bearing/Tolerated Gait Training Does the Patient Walk?: No and Walking Goal IS indicated Exercises Supine Ex: Ankle pumps (2x20), Glut sets, Heel Slides, Straight leg raise, Hip abd/add Supine Reps: 10 Treatments Pt completed all exercises listed above. Pt was not feeling well at the start of PT. Therapist informs RN about pts status. Pt required max encouragement to continued with PT for the day. As PT continued RN talks with pt, distributed meds and asks question to pt. During session, therapist educates pt on healing process with knee and encourages pt to ask doctor any and all question about his medication, if he has any. Once PT was concluded, pt was supine in bed with call light and tray in reach and all needs met. Assessment Current Status: Fair Progress Pt would benfit from continued skilled PT to address strength, activity tolerance and knee ROM. PT Scientific Technical Writer Goals Scientific Technical Writer Goals PT Scientific Technical Writer Goals Time Frame: Jun 20, 2022 Roll Left & Right (QC): 6 Sit to Lying (QC): 6 Lying-Sitting on Side/Bed(QC): 6 Sit to Stand (QC): 6 Chair/Pgw-ey-Cwxfw Xfer(QC): 6 Toilet Transfer (QC): 6 Car Transfer (QC): 6 Does the Patient Walk: Yes Walk 10 feet (QC): 6 Walk 50ft with 2 Turns (QC): 6 Walk 150 ft (QC): 4 Walking 10ft on Uneven Surface: 6 1 Step (curb) (QC): 3 4 Steps (QC): 3 12 Steps (QC): 3 Picking up an Object (QC): 6 Does the Pt use WC or Scooter?: Yes Wheel 50 feet with 2 turns (QC: 6 Type: Manual Wheel 150 feet: 6 Type: Manual PT Plan Problem List Problem List: Activity Tolerance, Functional Strength, ROM Treatment/Plan Treatment Plan: Continue Plan of Care Treatment Plan: Bed Mobility, Education, Functional Activity Christophe, Functional Strength, Group Therapy, Gait, Safety, Therapeutic Exercise, Transfers Treatment Duration: Jun 20, 2022 Frequency: At least 5 of 7 days/Wk (IRF) Estimated Hrs Per Day: 1.5 hours per day Patient and/or Family Agrees t: Yes Time Time In: 0755 Time Out: 0900 DATE: May 14, 2022 Total Billed Treatment Time: 65 Total Billed Treatment 1, Ex (4) THANH MOORE CABIN CLEANER May 14, 2022 08:58
[2022-05-14 09:16] VITALS: BP 131/60
--- NOTE | 2022-05-14 12:15 | Occupational Ther Daily Note ---
OT Current Status-Daily Note Subjective Pt. states that he doesn't feel well. He has been sick to his stomach. Eventually agrees to therapy. Nursing aware. Mental Status/Objective Patient Orientation: Person, Place ADL-Treatment Therapy Code Descriptions/Definitions Functional [place] Measure: 0=Not Assessed/NA 4=Minimal Assistance 1=Total Assistance 5=Supervision or Setup 2=Maximal Assistance 6=Modified [place] 3=Moderate Assistance 7=Complete IndependenceSCALE: Activities may be completed with or without assistive devices. 7-Rktykjmqcu-mjcdqgz completes the activity by him/herself with no assistance from a helper. 5-Set-up or Clean-up Assistance-helper sets up or cleans up; patient completes a ctivity. [place] assists only prior to or following the activity. 4-Supervision or Touching Assistance-helper provides verbal cues and/or touching/steadying and/or contact guard assistance as patient completes activity. Assistance may be provided throughout the activity or intermittently. 3-Partial/Moderate Assistance-helper does LESS THAN HALF the effort. [place] lifts, holds or supports trunk or limbs, but provides less than half the effort. 2-Substantial/Maximal Assistance-helper does MORE THAN HALF the effort. [place] lifts or holds trunk or limbs and provides more than half the effort. 1-Iihxlydsd-cwyskq does ALL the effort. Patient does none of the effort to complete the activity. Or, the assistance of 2 or more helpers is required for the patient to complete the activity. If activity was not attempted, code reason: 7-Patient Refused. 9-Not Applicable-not attempted and the patient did not perform the activity before the current illness, exacerbation or injury. 10-Not Attempted due to Environmental Limitations-(lack of equipment, weather restraints, etc.). 88-Not Attempted due to Medical Conditions or Safety Concerns. Eating (QC): 6 (Pt. eats crackers at bedside for stomach.) Oral Hygiene (QC): 7 (Pt. declines brushing teeth while standing at sink.) Shower/Bathe Self (QC): 7 (Declines. States that he showered yesterday.) On/Off Footwear: 3 (Min assist) Toileting Hygiene (QC): 4 (CGA when getting on/off toilet. Pt. able to pull down and up his pants and cleanse self after BM.) Toilet Transfer (QC): 4 Pt. declines treatment at first but does agree. OT gets him coffee and he drinks that with some crackers. OT takes BP and it is 131/60. Oxygen is at 95%. Pt. agrees to work with OT and ambulates to toilet first. Stands at sink with SBA to wash hands. Ambulates to therapy gym and back, with multiple rest breaks. Pt. uses walker throughout. Pt. back in bed with Min assist needed to get into bed. All needs met and pt. with call light. Education OT Patient Education: Correct positioning, Modified ADL techniques, Progress toward Goal/Update tx plan, Purpose of tx/functional activities, Reviewed precautions, Rehab process, Transfer techniques Teaching Recipient: Patient Teaching Methods: Demonstration, Discussion Response to Teaching: Verbalize Understanding, Return Demonstration, Reinforcement Needed OT Short Term Goals Short Term Goals Time Frame: May 25, 2022 Upper body dressin Lower body dressin Putting on/taking off footwear: 5 OT Apartment Property Manager Goals Apartment Property Manager Goals Time Frame: Jun 05, 2022 Acute change in mental status: 0 Inattention: 0 Disorganized thinkin Altered level of consciousness: 0 Eating (QC): 6 Oral Hygiene (QC): 6 Toileting Hygiene (QC): 6 Shower/Bathe Self (QC): 5 Upper Body Dressing (QC): 6 Lower Body Dressing (QC): 6 On/Off Footwear (QC): 6 Additional Goals: 1-Demonstrate ADL Tasks, 2-Verbalize Understanding, 3-ImproveStrength/Christophe 1=Demonstrate adherence to instructed precautions during ADL tasks. 2=Patient will verbalize/demonstrate understanding of assistive devices/modifications for ADL. 3=Patient will improve strength/tolerance for activity to enable patient to perform ADL's. OT Education/Plan Problem List/Assessment Assessment: Decreased Activ Tolerance, Decreased UE Strength, Impaired I ADL's, Impaired Self-Care Skills Discharge Recommendations Plan/Recommendations: Continue POC Therapy Discharge Recommendati: Post Acute OT Treatment Plan/Plan of Care Treatment,Training & Education: Yes Patient would benefit from OT for education, treatment and training to promote independence in ADL's, mobility, safety and/or upper extremity function for ADL's. Plan of Care: ADL Retraining, Functional Mobility, Group Exercise/Act as Ind, UE Funct Exercise/Act Treatment Duration: Jun 05, 2022 Frequency: At least 5 of 7 days/Wk (IRF) Estimated Hrs Per Day: 1.5 hours per day Agreement: Yes Rehab Potential: Fair Time Start Time: 09:00 Stop Time: 10:00 DATE: May 14, 2022 Total Time Billed (hr/min): 60 Billed Treatment Time 1, Ex x 30minutes, ADL x 30minutes ROCIO SPAULDING OT May 14, 2022 12:15
--- NOTE | 2022-05-14 12:24 | Therapy Group Daily Note ---
Therapy Daily Group Note Patient Education Topic Other List Below (Nutrition/food safety) Exercises Fine Motor, UE Exercise Session Ratio (pt:therapist): 2:7 Goal of Session: UE/LE Strengthing, Other (list) (food safety/nutrition) Goal Met for this Session: Yes Pt Benefit of Group: Contributions to Others, F/U Use of Strategies @Home, Increased Functional Safety, Improved Cognition, Recognition of Peers, Socialization Other/Notes Pt ambulated using FWW with CGA to [facility] for OT/PT group. Group consisted of introductions (name,place living), fine motor coordination tasks with B UE strengthening against gravity, safe transfers to/from table, educational topics on nutrition and food safety. Pt introduced self appropriately and actively listened to peers. Pt verbalized own experiences and strategies for educational topics. Pt required encouragement to participate with group and socialize. After session, pt lying in bed with call light/phone in reach. All needs met in room. Start Time: 11:00 Stop Time: 12:00 Total Billed Treatment Time: 60 Total Billed Treatment 1-GRP JOSE CRUZ TARANGO May 14, 2022 12:24
--- NOTE | 2022-05-14 13:05 | Diagnostic Imaging Report ---
EXAMINATION: Abdominal radiographs, acute series. DATE: May 14, 2022. CLINICAL INDICATION: 86-year-old male, nausea. Abdominal pain. COMPARISON: None. COMMENTS: There are gas-filled segments of small bowel which are abnormally dilated up to approximately 5.5 cm in diameter. There is no identified pneumatosis, portal venous gas, or free intraperitoneal air. There are carotid vascular calcifications bilaterally. IMPRESSION: 1. Abnormal but nonspecific bowel gas pattern with abnormally distended gas-filled segments of small bowel measuring up to 5.5 cm in diameter. Ileus and obstruction are both considered. Dictated by: Dictated on workstation # [id number]
[2022-05-14] MEDS: ASPIRIN E.C. 81 MG (ECOTRIN) TAB PO SCH (17:19)
[2022-05-14 19:25] VITALS: BP 122/56
[2022-05-14] MEDS: NIACIN 500 MG TABLET PO SCH (20:21)
[2022-05-14] MEDS: FENOFIBRATE 134 MG (LOFIBRA) CAPSULE PO SCH (20:21)
[2022-05-14] MEDS: doxAzosin 2 MG (CARDURA) TAB PO SCH (20:21)
[2022-05-15] MEDS: ACETAMINOPHEN 500 MG TAB (TYLENOL) PO SCH ×3 (00:04→16:49)
[2022-05-15] MEDS: ONDANSETRON 4 MG/2 ML (SDV) Z0FRAN IVP SCH ×4 (00:04→17:27)
[2022-05-15] MEDS: MULTIVIT W/MINERALS TAB (THERAGRAN M) PO SCH (05:21)
--- NOTE | 2022-05-15 06:04 | PM&R Progress Note ---
Subjective HPI/CC On Admission Date Seen by Provider: May 15, 2022 Time Seen by Provider: 11:30 Subjective/Events-last exam 05/15/2022: Reports he feels better and less nausea but only taking in CLD due to early ileus on xray I consulted Dr Pham and we conferred Labs stable Lungs have rales so will check CXR and order IS and Nebs BID 05/14/2022: Nausea continues Rifaximin will be held due to nausea high incidence on med profile Zofran scheduled Abd xray reveals ileus Monitor closely 05/13/2022: Doing better COVID was 04/25/22 Nausea persists so will continue scheduled Zofran 05/12/2022: Doing better Slow recovery IVF will continue Zofran scheduled has been helpful BP ok O2 not needed anymore hgb 10.5 Review of Systems General: Fatigue, Malaise Pulmonary: Dyspnea, Cough Gastrointestinal: Nausea Musculoskeletal: leg pain Objective Exam Vital Signs Vital Signs Date Time Temp Pulse Resp B/P (MAP) Pulse Ox O2 Delivery O2 Flow Rate FiO2 05/15/22 09:11 Room Air 05/15/22 07:46 36.6 98 18 124/58 (80) 92 05/11/22 15:03 Capillary Refill : General Appearance: No Apparent Distress, WD/WN, Chronically ill, Obese HEENT: PERRL/EOMI, Normal ENT Inspection, Pharynx Normal Neck: Full Range of Motion, Normal Inspection, Non Tender, Supple, Carotid Bru it Respiratory: Chest Non Tender, Lungs Clear, Normal Breath Sounds, No Accessory Muscle Use, No Respiratory Distress Cardiovascular: Regular Rate, Rhythm, No Edema, No Gallop, No JVD, No Murmur, Normal Peripheral Pulses Gastrointestinal: Normal Bowel Sounds, No Organomegaly, No Pulsatile Mass, Non Tender, Soft Back: Normal Inspection, No CVA Tenderness, No Vertebral Tenderness Extremity: Normal Capillary Refill, Normal Inspection, Normal Range of Motion (except left leg), Non Tender, No Calf Tenderness, No Pedal Edema Neurologic/Psychiatric: Alert, Oriented x3, No Motor/Sensory Deficits, Normal Mood/Affect, rail director II-XII Norm as Tested, Abnormal Gait, Motor Weakness Skin: Normal Color, Warm/Dry Lymphatic: No Adenopathy Results/Procedures Lab Laboratory Tests 05/15/22 06:10 Patient resulted labs reviewed. FIM Transfers Therapy Code Descriptions/Definitions Functional [place] Measure: 0=Not Assessed/NA 4=Minimal Assistance 1=Total Assistance 5=Supervision or Setup 2=Maximal Assistance 6=Modified [place] 3=Moderate Assistance 7=Complete IndependenceSCALE: Activities may be completed with or without assistive devices. 7-Rsdmxsdvya-jqepzqa completes the activity by him/herself with no assistance from a helper. 5-Set-up or Clean-up Assistance-helper sets up or cleans up; patient completes activity. [place] assists only prior to or following the activity. 4-Supervision or Touching Assistance-helper provides verbal cues and/or touching/steadying and/or contact guard assistance as patient completes activity. Assistance may be provided throughout the activity or intermittently. 3-Partial/Moderate Assistance-helper does LESS THAN HALF the effort. [place] lifts, holds or supports trunk or limbs, but provides less than half the effort. 2-Substantial/Maximal Assistance-helper does MORE THAN HALF the effort. [place] lifts or holds trunk or limbs and provides more than half the effort. 1-Wuaepjoyh-sjebqs does ALL the effort. Patient does none of the effort to complete the activity. Or, the assistance of 2 or more helpers is required for the patient to complete the activity. If activity was not attempted, code reason: 7-Patient Refused. 9-Not Applicable-not attempted and the patient did not perform the activity before the current illness, exacerbation or injury. 10-Not Attempted due to Environmental Limitations-(lack of equipment, weather restraints, etc.). 88-Not Attempted due to Medical Conditions or Safety Concerns. Roll Left to Right (QC): 6 Sit to Lying (QC): 4 Sit to Stand (QC): 6 Chair/Fvn-fl-Xnkya Xfer(QC): 6 Car Transfer (QC): 3 Gait Training Does the Patient Walk?: No and Walking Goal IS indicated Distance: 20', 30', 60', 30', 30', 60' Walk 10 feet (QC): 4 Walk 50 ft with 2 Turns(QC): 4 Walk 150 ft (QC): 88 Walking 10ft/uneven surface-QC: 3 Gait Persons Needed: 1 Gait Assistive Device: FWW Wheelchair Training Does the Pt Use a Wheelchair?: Yes Distance: See PT goals Wheel 50 ft with 2 turns (QC): 4 Wheel 150 ft (QC): 1 Type of Wheelchair: Manual Stair Training #of Steps: 0 1 Step (curb) (QC): 88 4 Steps (QC): 88 12 Steps (QC): 88 Balance Picking up an Object (QC): 4 ADL-Treatment Eating (QC): 6 (Pt. eats crackers at bedside for stomach.) Oral Hygiene (QC): 7 (Pt. declines brushing teeth while standing at sink.) Shower/Bathe Self (QC): 7 (Declines. States that he showered yesterday.) Upper Body Dressing (QC): 5 (set up ) Lower Body Dressing (QC): 4 (SBA) On/Off Footwear (QC): 3 (Min assist) Toileting Hygiene (QC): 4 (CGA when getting on/off toilet. Pt. able to pull down and up his pants and cleanse self after BM.) Toilet Transfer (QC): 4 Assessment/Plan Assessment and Plan Assess & Plan/Chief Complaint A: S/P LTKA due to osteoarthritis Dr Price 05/05/2022 Weakness Diarrhea COVID recent 3 weeks ago s/p Paxlovid Hypoxia requiring O2 new onset h/o falls HTN Nausea Anxiety Diverticulosis BPH Osteoarthritis Subacute nausea refractory so holding Rifaximin Dehydration requiring 48 hours of IVF RBBB Ileus on xray consulting Dr Pham Crackles on lung exam checking CXR and added IS and Nebs Plan: Pain control Nausea treatment IVF Pain control Aggressive PT OT 05/12/2022: IVF Supportive care 05/13/2022: Monitor closely HLIVF 05/14/2022: KUB Hold Rifaximin 05/15/2022: Check CXR Nebs IS (1) History of arthroplasty of right knee (2) Nausea (3) History of COVID-19 (4) Hypoxia AMY GROVES DO May 15, 2022 06:04
[2022-05-15 06:33] LABS: BASOPHILS % (AUTO) 1 % (0-10); EOSINOPHILS # (AUTO) 0.2 10^3/uL (0.0-0.3); EOSINOPHILS % (AUTO) 5 % (0-10); HEMATOCRIT 31 % (40-54); HEMOGLOBIN 10.5 g/dL (13.3-17.7); LYMPHOCYTES # (AUTO) 0.7 10^3/uL (1.0-4.0); LYMPHOCYTES % (AUTO) 17 % (12-44); MEAN CORPUSCULAR HEMOGLOBIN 30 pg (25-34); MEAN CORPUSCULAR HGB CONC 34 g/dL (32-36); MEAN CORPUSCULAR VOLUME 90 fL (80-99); MEAN PLATELET VOLUME 8.8 fL (9.0-12.2); MONOCYTES # (AUTO) 0.4 10^3/uL (0.0-1.0); MONOCYTES % (AUTO) 10 % (0-12); NEUTROPHILS # (AUTO) 2.7 10^3/uL (1.8-7.8); NEUTROPHILS % (AUTO) 65 % (42-75); PLATELET COUNT 242 10^3/uL (130-400); WHITE BLOOD COUNT 4.1 10^3/uL (4.3-11.0)
[2022-05-15 07:08] LABS: BILIRUBIN,TOTAL 0.6 MG/DL (0.1-1.0); CALCIUM 8.6 MG/DL (8.5-10.1); CREATININE SERUM 1.06 MG/DL (0.60-1.30); POTASSIUM 3.7 MMOL/L (3.6-5.0); TOTAL PROTEIN 5.4 GM/DL (6.4-8.2)
[2022-05-15 07:46] VITALS: BP 124/58
[2022-05-15] MEDS: SENNA W/DOCUSATE (SENOKOT S) TABLET PO SCH ×2 (07:56→20:44)
[2022-05-15] MEDS: CALCIUM CARB + VIT D 600 MG (CALCARB + D) TAB PO SCH ×2 (07:56→17:27)
[2022-05-15] MEDS: ASCORBIC ACID (VIT C) 500 MG TABLET PO SCH (07:56)
[2022-05-15] MEDS: DOCUSATE SODIUM 100 MG (COLACE) CAP PO SCH ×2 (07:56→20:44)
[2022-05-15] MEDS: PANTOPRAZOLE 40 MG (PROTONIX) TAB PO SCH (07:56)
[2022-05-15] MEDS: polyethylene glycoL POWDER 17 GM (MIRALAX) PACK PO SCH ×2 (07:57→20:44)
[2022-05-15] MEDS: LACTULOSE SYRUP 10GM/15ML (ENULOSE) 30ML UDC PO PRN (07:57)
--- NOTE | 2022-05-15 08:14 | Occupational Ther Daily Note ---
OT Current Status-Daily Note Subjective Pt in recliner, agreeable to OT Tx. Pt feels as though he is going backwards and not doing well. Pt required motivation and encouragement to complete tasks himself throughout tx. Mental Status/Objective Patient Orientation: Normal For Age ADL-Treatment Therapy Code Descriptions/Definitions Functional [place] Measure: 0=Not Assessed/NA 4=Minimal Assistance 1=Total Assistance 5=Supervision or Setup 2=Maximal Assistance 6=Modified [place] 3=Moderate Assistance 7=Complete IndependenceSCALE: Activities may be completed with or without assistive devices. 2-Mrjaruoanw-jinvhzo completes the activity by him/herself with no assistance from a helper. 5-Set-up or Clean-up Assistance-helper sets up or cleans up; patient completes activity. [place] assists only prior to or following the activity. 4-Supervision or Touching Assistance-helper provides verbal cues and/or touching/steadying and/or contact guard assistance as patient completes activity. Assistance may be provided throughout the activity or intermittently. 3-Partial/Moderate Assistance-helper does LESS THAN HALF the effort. [place] lifts, holds or supports trunk or limbs, but provides less than half the effort. 2-Substantial/Maximal Assistance-helper does MORE THAN HALF the effort. [place] lifts or holds trunk or limbs and provides more than half the effort. 9-Lbtfnxeyf-hfwvtx does ALL the effort. Patient does none of the effort to complete the activity. Or, the assistance of 2 or more helpers is required for the patient to complete the activity. If activity was not attempted, code reason: 7-Patient Refused. 9-Not Applicable-not attempted and the patient did not perform the activity before the current illness, exacerbation or injury. 10-Not Attempted due to Environmental Limitations-(lack of equipment, weather restraints, etc.). 88-Not Attempted due to Medical Conditions or Safety Concerns. Oral Hygiene (QC): 6 Other Treatment Pt in recliner, agreeable to OT Tx. Pt declined showering, requests to defer shower until Wednesday. Pt requests to shave. Pt requests assistance to stand from recliner, prior to attempting stand himself. OT encouraged pt to complete himsel f, pt able to stand from recliner with SBA. Pt used FWW to transfer into bathroom, sat in chair at sink, CGA. Pt complete oral care, shaving and grooming tasks independently. Pt informed of plan to go to therapy gym, pt states he doesn't think he can make it, and that he will need a w/c follow. OT encouraged pt to attempt to make it to the gym, as there are chairs to rest in on the way if needed. Pt used FWW to perform functional mobility to therapy gym, CGA, no seated rest breaks, no w/c follow. In order to increase BUE Strength and activity tolerance, pt completed x15 mins on arm bike, x20 Watt resistance, no rest breaks. Pt returned to his room using FWW, CGA, no seated rest breaks. Post tx, pt in recliner, call light in reach and all needs met. Education OT Patient Education: Correct positioning, Energy conservation, Modified ADL techniques, Progress toward Goal/Update tx plan, Purpose of tx/functional activities, Rehab process Teaching Recipient: Patient Teaching Methods: Discussion Response to Teaching: Verbalize Understanding, Reinforcement Needed OT Short Term Goals Short Term Goals Time Frame: May 25, 2022 Upper body dressin Lower body dressin Putting on/taking off footwear: 5 OT Longterm Goals Longterm Goals Time Frame: Jun 05, 2022 Acute change in mental status: 0 Inattention: 0 Disorganized thinkin Altered level of consciousness: 0 Eating (QC): 6 Oral Hygiene (QC): 6 Toileting Hygiene (QC): 6 Shower/Bathe Self (QC): 5 Upper Body Dressing (QC): 6 Lower Body Dressing (QC): 6 On/Off Footwear (QC): 6 Additional Goals: 1-Demonstrate ADL Tasks, 2-Verbalize Understanding, 3- ImproveStrength/Christophe 1=Demonstrate adherence to instructed precautions during ADL tasks. 2=Patient will verbalize/demonstrate understanding of assistive devices/m odifications for ADL. 3=Patient will improve strength/tolerance for activity to enable patient to perform ADL's. OT Education/Plan Problem List/Assessment Assessment: Decreased Activ Tolerance, Decreased UE Strength, Impaired Funct Balance, Impaired I ADL's, Impaired Self-Care Skills Discharge Recommendations Plan/Recommendations: Continue POC Therapy Discharge Recommendati: Post Acute OT (SNF) Barriers to Progress Pt's motivation to complete tasks himself is a barrier to pt returning home, as he lives by himself. Pt indicates his family lives next door, but he is unsure how much assistance they will actually provide. At this time, OT recommends pt to d/c to SNF. Treatment Plan/Plan of Care Patient would benefit from OT for education, treatment and training to promote independence in ADL's, mobility, safety and/or upper extremity function for ADL's. Plan of Care: ADL Retraining, Functional Mobility, Group Exercise/Act as Ind, UE Funct Exercise/Act Treatment Duration: Jun 05, 2022 Frequency: At least 5 of 7 days/Wk (IRF) Estimated Hrs Per Day: 1.5 hours per day Agreement: Yes Rehab Potential: Fair Time Start Time: 08:00 Stop Time: 09:00 DATE: May 15, 2022 Total Time Billed (hr/min): 60 Billed Treatment Time 1, EX (20'), ADL 3 (40') THOMAS STEWART OT May 15, 2022 08:14
--- NOTE | 2022-05-15 10:03 | Physical Therapy Daily Note ---
PT Daily Note-Current Subjective Pt. shakes his head "no " and turns his head away as this HIGH SCHOOL ACADEMIC COACH enters the room, pt. shares that his gut doesnt feel well and he has pain in his knee too. Pt also shares that he is very anxious to get home and DC on Tu. After some discussion including the nurse pt. agrees to rx and understands that activity and drinking water may help his gut and is def what is needed for his knee. Pain Numeric Pain Scale: 6 Location: Left Location Body Site: Knee Pain Description: Ache Section J - Health Conditions 1. Rarely or not at all 2. Occasionally 3. Frequently 4. Almost constantly 8. Unable to answer Pain Effect on Sleep: 2 Pain Interference with Therapy: 2 Pain Interference w/Day-to-Day: 2 Appearance hard distended abdomen Mental Status Patient Orientation: Normal For Age Transfers SCALE: Activities may be completed with or without assistive devices. 5-Jyqxinubua-gkummmb completes the activity by him/herself with no assistance f rom a helper. 5-Set-up or Clean-up Assistance-helper sets up or cleans up; patient completes activity. [place] assists only prior to or following the activity. 4-Supervision or Touching Assistance-helper provides verbal cues and/or touching/steadying and/or contact guard assistance as patient completes activity. Assistance may be provided throughout the activity or intermittently. 3-Partial/Moderate Assistance-helper does LESS THAN HALF the effort. [place] lifts, holds or supports trunk or limbs, but provides less than half the effort. 2-Substantial/Maximal Assistance-helper does MORE THAN HALF the effort. [place] lifts or holds trunk or limbs and provides more than half the effort. 4-Pdsafcqqk-cywdgn does ALL the effort. Patient does none of the effort to complete the activity. Or, the assistance of 2 or more helpers is required for the patient to complete the activity. If activity was not attempted, code reason: 7-Patient Refused. 9-Not Applicable-not attempted and the patient did not perform the activity before the current illness, exacerbation or injury. 10-Not Attempted due to Environmental Limitations-(lack of equipment, weather restraints, etc.). 88-Not Attempted due to Medical Conditions or Safety Concerns. Roll Left & Right (QC): 6 Sit to Lying (QC): 6 Lying to Sitting/Side of Bed(Q: 6 Sit to Stand (QC): 6 Chair/Awd-so-Ljsyy Xfer(QC): 6 Weight Bearing Right Lower Extremity: Right Full Weight Bearing Left Lower Extremity: Left Weight Bearing/Tolerated Gait Training Does the Patient Walk?: Yes Walk 10 feet (QC): 4 Walk 50 ft with 2 Turns(QC): 4 Walk 150 ft (QC): 4 Gait Persons Needed: 1 Gait Assistive Device: FWW much emphasis on more equal step length with right passing left as well as to increase heel strike on left Exercises Supine Ex: Ankle pumps, Quad Set, Heel Slides, Short Arc Quads, Straight leg raise Supine Reps: 15 (x2) Seated Therapy Exercises: Ankle pumps, Sit to stand, Long arc quads Seated Reps: 10 NuStep Minutes: 10 NuStep Workload: 2 Treatments gait, TRFs, seated and supine L TKR ex, Nustep Assessment Current Status: Fair Progress AROM 8 0 80, pt. lacking 8 deg full ext left knee, pt. unmotivated, grieving who passed recently, worried about his DC and future PT Translator Deaf Goals Translator Deaf Goals PT Translator Deaf Goals Time Frame: Jun 20, 2022 Roll Left & Right (QC): 6 Sit to Lying (QC): 6 Lying-Sitting on Side/Bed(QC): 6 Sit to Stand (QC): 6 Chair/Beu-fh-Lablh Xfer(QC): 6 Toilet Transfer (QC): 6 Car Transfer (QC): 6 Does the Patient Walk: Yes Walk 10 feet (QC): 6 Walk 50ft with 2 Turns (QC): 6 Walk 150 ft (QC): 4 Walking 10ft on Uneven Surface: 6 1 Step (curb) (QC): 3 4 Steps (QC): 3 12 Steps (QC): 3 Picking up an Object (QC): 6 Does the Pt use WC or Scooter?: Yes Wheel 50 feet with 2 turns (QC: 6 Type: Manual Wheel 150 feet: 6 Type: Manual PT Plan Treatment/Plan Treatment Plan: Continue Plan of Care Treatment Plan: Bed Mobility, Education, Functional Activity Christophe, Functional Strength, Group Therapy, Gait, Safety, Therapeutic Exercise, Transfers Treatment Duration: Jun 20, 2022 Frequency: At least 5 of 7 days/Wk (IRF) Estimated Hrs Per Day: 1.5 hours per day Patient and/or Family Agrees t: Yes Safety Risks/Education Patient Education: Gait Training, Transfer Techniques, Correct Positioning, Disease Process, Safety Issues Teaching Recipient: Patient Teaching Methods: Demonstration, Discussion Response to Teaching: Verbalize Understanding, Return Demonstration, Reinforcement Needed Time Time In: 900 Time Out: 1000 DATE: May 15, 2022 Total Billed Treatment Time: 60 Total Billed Treatment 1,GT25m,EX35m GREGORY HANKS HIGH SCHOOL ACADEMIC COACH May 15, 2022 10:03
--- NOTE | 2022-05-15 11:05 | Physical Therapy Daily Note ---
PT Daily Note-Current Subjective Pt. agrees to Rx with encouragement, "You're doing a good job here, I'm mostly teasing you know, I know you're right about this stuff" Pain Location: No Pain Reported Section J - Health Conditions 1. Rarely or not at all 2. Occasionally 3. Frequently 4. Almost constantly 8. Unable to answer Pain Effect on Sleep: 2 Pain Interference with Therapy: 2 Pain Interference w/Day-to-Day: 2 Mental Status Patient Orientation: Normal For Age Transfers SCALE: Activities may be completed with or without assistive devices. 8-Pbzpfugqgi-ywnlley completes the activity by him/herself with no assistance from a helper. 5-Set-up or Clean-up Assistance-helper sets up or cleans up; patient completes activity. [place] assists only prior to or following the activity. 4-Supervision or Touching Assistance-helper provides verbal cues and/or touching/steadying and/or contact guard assistance as patient completes ac tivity. Assistance may be provided throughout the activity or intermittently. 3-Partial/Moderate Assistance-helper does LESS THAN HALF the effort. [place] lifts, holds or supports trunk or limbs, but provides less than half the effort. 2-Substantial/Maximal Assistance-helper does MORE THAN HALF the effort. [place] lifts or holds trunk or limbs and provides more than half the effort. 9-Ehiulrsqo-lwnrxz does ALL the effort. Patient does none of the effort to complete the activity. Or, the assistance of 2 or more helpers is required for the patient to complete the activity. If activity was not attempted, code reason: 7-Patient Refused. 9-Not Applicable-not attempted and the patient did not perform the activity before the current illness, exacerbation or injury. 10-Not Attempted due to Environmental Limitations-(lack of equipment, weather restraints, etc.). 88-Not Attempted due to Medical Conditions or Safety Concerns. all sit to stand SBA with one cue for use of hands for sit to stand Weight Bearing Right Lower Extremity: Right Full Weight Bearing Left Lower Extremity: Left Weight Bearing/Tolerated Gait Training Does the Patient Walk?: Yes Walk 10 feet (QC): 4 Walk 50 ft with 2 Turns(QC): 4 Walk 150 ft (QC): 4 Gait Persons Needed: 1 Gait Assistive Device: FWW continued need for cuing and instruction in heel strike left and better gait pattern and right foot step length Exercises Supine Ex: Ankle pumps, Quad Set, Heel Slides, Straight leg raise Supine Reps: 15 Treatments therex, gait, TRFs, in recliner after with priest at hand, pt. encouraged to drink, drink refreshed etc Assessment Current Status: Good Progress PT Intermediate Goals Intermediate Goals PT Drafting Clerk Goals Time Frame: Jun 20, 2022 Roll Left & Right (QC): 6 Sit to Lying (QC): 6 Lying-Sitting on Side/Bed(QC): 6 Sit to Stand (QC): 6 Chair/Hyt-ki-Yhcwv Xfer(QC): 6 Toilet Transfer (QC): 6 Car Transfer (QC): 6 Does the Patient Walk: Yes Walk 10 feet (QC): 6 Walk 50ft with 2 Turns (QC): 6 Walk 150 ft (QC): 4 Walking 10ft on Uneven Surface: 6 1 Step (curb) (QC): 3 4 Steps (QC): 3 12 Steps (QC): 3 Picking up an Object (QC): 6 Does the Pt use WC or Scooter?: Yes Wheel 50 feet with 2 turns (QC: 6 Type: Manual Wheel 150 feet: 6 Type: Manual PT Plan Treatment/Plan Treatment Plan: Continue Plan of Care Treatment Plan: Bed Mobility, Education, Functional Activity Christophe, Functional Strength, Group Therapy, Gait, Safety, Therapeutic Exercise, Transfers Treatment Duration: Jun 20, 2022 Frequency: At least 5 of 7 days/Wk (IRF) Estimated Hrs Per Day: 1.5 hours per day Patient and/or Family Agrees t: Yes Safety Risks/Education Patient Education: Gait Training, Transfer Techniques, Correct Positioning, Safety Issues Teaching Recipient: Patient Teaching Methods: Demonstration, Discussion Response to Teaching: Verbalize Understanding, Return Demonstration, Reinforcement Needed Time Time In: 1030 Time Out: 1100 DATE: May 15, 2022 Total Billed Treatment Time: 30 Total Billed Treatment 1,GT12m,EX13m GREGORY HANKS GROUND SERVICE EQUIPMENT MECHANIC May 15, 2022 11:05
--- NOTE | 2022-05-15 12:32 | Consultation - Surgery ---
LUKE DE LA ROSA 05/15/22 1231: History of Present Illness History of Present Illness Patient Consulted On(jeromy/time) 05/15/22 12:24 Date Seen by Provider: May 15, 2022 Time Seen by Provider: 12:00 History of Present Illness Patient being seen in consultation on the inpatient rehab floor for ileus. 86 year old male who is in the [facility] inpatient rehab floor to recover from a recent knee replacement surgery. Patient states that he has not had a formed stool in a month. He has just been having bloating and runny stools. Patient states that he had a colonscopy in [facility] and was found to have diverticulitis. He was given Abx for 2 weeks along with probiotics. He does not know which abx he was given. Patient then got Covid the first week of april. Then had a knee replacement shortly after. Patient states that he feels distended. Patient also states his distention got so bad that he was unable to swallow anything, stating it felt like it would hit a brick wall. Patient states that since switching to liquid only diet his distention does feel a little better. Patient was nauseous yesterday, but this has since improved. Patient is not really having pain, just discomfort and fullness. Allergies and Home Medications Allergies Coded Allergies: Penicillins (Verified Allergy, Unknown, 05/11/22) Sulfa (Sulfonamide Antibiotics) (Verified Allergy, Unknown, 05/11/22) allopurinol (Verified Allergy, Unknown, 05/11/22) ibuprofen (Verified Allergy, Unknown, 05/11/22) prednisone (Verified Allergy, Unknown, 05/11/22) Patient Home Medication List Home Medication List Reviewed: Yes Acetaminophen (Tylenol Extra Strength) 500 Mg Tablet, 1,000 MG PO Q8H, (Reported) Entered as Reported by: NICK CHAVES on 05/11/221246 Last Action: Continued Ascorbate Calcium (Vitamin C) 500 Mg Tablet, 500 MG PO DAILY, (Reported) Entered as Reported by: NICK CHAVES on 05/11/221246 Last Action: Converted Aspirin (Aspirin EC) 325 Mg Tablet.dr, 325 MG PO HS, (Reported) Entered as Reported by: NICK CHAVES on 05/11/221246 Last Action: Converted Betamethasone Dipropionate (Sernivo) 0.05 % [place].pump, 1 APPLIC TP DAILY PRN for RASH, (Reported) Entered as Reported by: NICK CHAVES on 05/11/221246 Last Action: Converted Calcium Carbonate/Vitamin D3 (Calcium 600 + Vit D 800 Tab) 600 Mg Calcium-20 Mcg (800 Unit) Tablet, 1 EACH PO BID, (Reported) Entered as Reported by: NICK CHAVES on 05/11/221246 Last Action: Converted Diazepam (Diazepam) 5 Mg Tablet, 5 MG PO DAILY PRN for ANXIETY, (Reported) Entered as Reported by: NICK CHAVES on 05/11/221246 Last Action: Continued Diclofenac Sodium (Diclofenac Sodium) 1 % Gel..gram., 2 GM TP QID PRN for PAIN- BREAKTHROUGH, (Reported) Entered as Reported by: NICK CHAVES on 05/11/221246 Last Action: Continued Doxazosin Mesylate (Doxazosin Mesylate) 2 Mg Tablet, 2 MG PO HS, (Reported) Entered as Reported by: NICK CHAVES on 05/11/221246 Last Action: Continued Fenofibrate Nanocrystallized (Fenofibrate) 145 Mg Tablet, 145 MG PO HS, (Reported) Entered as Reported by: NICK CHAVES on 05/11/221246 Last Action: Converted Glucosamine/D3/Boswellia Cindy (Osteo Bi-Flex Tablet) 1,500 Mg-400 Unit-100 Mg Tablet, 1 EACH PO DAILY, (Reported) Entered as Reported by: NICK CHAVES on 05/11/221246 Last Action: Converted Melatonin (Melatonin) 5 Mg Tablet, 5 MG PO HS PRN for SLEEP, (Reported) Entered as Reported by: NICK CHAVES on 05/11/221246 Last Action: Converted Multivit-Min/Ferrous Fumarate (Multivitamin with Minerals Tab) 15 Mg Iron Tablet, 1 EA PO DAILY, (Reported) Entered as Reported by: NICK CHAVES on 05/11/221246 Last Action: Converted Niacin (Niacin) 500 Mg Tablet, 500 MG PO HS, (Reported) Entered as Reported by: NICK CHAVES on 05/11/221246 Last Action: Continued Oxycodone HCl (Oxycodone HCl) 5 Mg Tablet, 5-10 MG PO EVERY 2 HOURS PRN for PAIN-SEVERE (8-10), (Reported) Entered as Reported by: NICK CHAVES on 05/11/221246 Last Action: Continued Pantoprazole Sodium (Pantoprazole Sodium) 40 Mg Tablet.dr, 40 MG PO DAILY, (Reported) Entered as Reported by: NICK CHAVES on 05/11/221246 Last Action: Continued Rifaximin (Xifaxan) 550 Mg Tablet, 550 MG PO TID, (Reported) Entered as Reported by: NICK CHAVES on 05/11/221246 Last Action: Continued Tramadol HCl (Tramadol HCl) 50 Mg Tablet, 50-100 MG PO Q6H PRN for PAIN-MODERATE (5-7), (Reported) Entered as Reported by: NICK CHAVES on 05/11/221246 Last Action: Continued Past Bquffpu-Kddbjt-Pflynh Hx Patient Social History Smoking Status: Never a Smoker Alcohol Use?: No Have you traveled recently?: No Immunizations Up To Date Date of Influenza Vaccine: Apr 10, 2022 Surgeries History of Surgeries: Yes Surgeries: Appendectomy, Orthopedic Cardiovascular History of Cardiac Disorders: Yes Cardiac Disorders: High Cholesterol, Hypertension Neurological History of Neurological Disord: No Genitourinary History of Genitourinary Disor: Yes Genitourinary Disorders: Benign Prostatic Hyperpl, Prostate Problems (prostate ca) Gastrointestinal Gastrointestinal Disorders: Gastroesophageal Reflux Cancer History of Cancer: Yes Cancer: Prostate, Skin Psychosocial History of Psychiatric Problem: Yes Behavioral Health Disorders: Anxiety Review of Systems-General Constitutional: No chills, No diaphoresis Respiratory: cough (wet, productive ); No dyspnea on exertion Cardiovascular: No chest pain Gastrointestinal: No abdominal pain, No nausea, No vomiting; other (bloating) Genitourinary: No discharge, No dysuria Musculoskeletal: No back pain; joint pain (knee) Psychiatric/Neurological: Denies Anxiety, Denies Depressed Physical Exam-General Problems Physical Exam Vital Signs Vital Signs - First Documented 05/11/22 15:03 Temp 36.4 Pulse 97 Resp 18 B/P (MAP) 144/67 (92) Pulse Ox 97 O2 Delivery Room Air Capillary Refill : General Appearance: WD/WN, no apparent distress HEENT: PERRL/EOMI Neck: non-tender, supple Respiratory: no respiratory distress, no accessory muscle use, crackles (/coarse) Cardiovascular: regular rate, rhythm, no murmur Gastrointestinal: non tender, soft, other (central adiposity ) Extremities: no pedal edema, calf tenderness (pain from surgical site ) Neurologic/Psychiatric: alert, normal mood/affect, oriented x 3 Skin: normal color, warm/dry Data Review Labs Laboratory Tests 05/15/22 06:10: White Blood Count 4.1L, Red Blood Count 3.45L, Hemoglobin 10.5L, Hematocrit 31L, Mean Corpuscular Volume 90, Mean Corpuscular Hemoglobin 30, Mean Corpuscular Hemoglobin Concent 34, Red Cell Distribution Width 13.9, Platelet Count 242, Mean Platelet Volume 8.8L, Immature Granulocyte % (Auto) 3, Neutrophils (%) (Auto) 65, Lymphocytes (%) (Auto) 17, Monocytes (%) (Auto) 10, Eosinophils (%) (Auto) 5, Basophils (%) (Auto) 1, Neutrophils # (Auto) 2.7, Lymphocytes # (Auto) 0.7L, Monocytes # (Auto) 0.4, Eosinophils # (Auto) 0.2, Basophils # (Auto) 0.0, Immature Granulocyte # (Auto) 0.1, Sodium Level 138, Potassium Level 3.7, Chloride Level 104, Carbon Dioxide Level 23, Anion Gap 11, Blood Urea Nitrogen 12, Creatinine 1.06, Estimat Glomerular Filtration Rate 69, BUN/Creatinine Ratio 11, Glucose Level 86, Calcium Level 8.6, Corrected Calcium 9.4, Total Bilirubin 0.6, Aspartate Amino Transf (AST/SGOT) 22, Alanine Aminotransferase (ALT/SGPT) 17, Alkaline Phosphatase 37L, Total Protein 5.4L, Albumin 3.0L Microbiology 05/14/22 Fecal Leukocyte Stain - Final, Complete Radiology [facility] [place], [place] NAME: [facility] REC#: [id number] PT STATUS: ADM IN : 1935 PHYSICIAN: AMY GROVES DO ADMIT DATE: 05/11/22/[facility] Signed Date of Exam:05/14/22 ACUTE ABD SERIES EXAMINATION: Abdominal radiographs, acute series. DATE: May 14, 2022. CLINICAL INDICATION: 86-year-old male, nausea. Abdominal pain. COMPARISON: None. COMMENTS: There are gas-filled segments of small bowel which are abnormally dilated up to approximately 5.5 cm in diameter. There is no identified pneumatosis, portal venous gas, or free intraperitoneal air. There are carotid vascular calcifications bilaterally. IMPRESSION: 1. Abnormal but nonspecific bowel gas pattern with abnormally distended gas-filled segments of small bowel measuring up to 5.5 cm in diameter. Ileus and obstruction are both considered. Dictated by: Dictated on workstation # [id number] Dict: 05/14/22 1155 Trans: 05/14/22 1323 [facility] [id number] Interpreted by: FERMIN RAMSEY MD Electronically signed by: FERMIN RAMSEY MD 05/14/22 1326 Assessment/Plan Assessment/Plan Assessment/Plan Constipation - Ileus most likely vs obstruction vs [place] Plan Continue liquid diet today Miralax - either 34g once or 17g bid + bisacodyl suppository once daily as tolerated, until patient has BM Continue to monitor. Will stick with conservative medical treatment options as long as patient is not having worsening distention or pain. ABDELRAHMAN HUYNH DO 05/15/22 1345: History of Present Illness History of Present Illness Time Seen by Provider: 11:07 History of Present Illness Surgery asked to consult regarding constipation. Pt stated he feels distended, but can't tell if his belly is bigger. He has been having small amounts of gas and "the runs". He is not really having abdominal pain. He is also asking for more solid food, "I am tired of liquids". Allergies and Home Medications Allergies Coded Allergies: Penicillins (Verified Allergy, Unknown, 05/11/22) Sulfa (Sulfonamide Antibiotics) (Verified Allergy, Unknown, 05/11/22) allopurinol (Verified Allergy, Unknown, 05/11/22) ibuprofen (Verified Allergy, Unknown, 05/11/22) prednisone (Verified Allergy, Unknown, 05/11/22) Patient Home Medication List Home Medication List Reviewed: Yes Acetaminophen (Tylenol Extra Strength) 500 Mg Tablet, 1,000 MG PO Q8H, (Reported) Entered as Reported by: NICK CHAVES on 05/11/22 1734 Last Action: Continued Ascorbate Calcium (Vitamin C) 500 Mg Tablet, 500 MG PO DAILY, (Reported) Entered as Reported by: NICK CHAVES on 05/11/221246 Last Action: Converted Aspirin (Aspirin EC) 325 Mg Tablet.dr, 325 MG PO HS, (Reported) Entered as Reported by: NICK CHAVES on 05/11/221246 Last Action: Converted Betamethasone Dipropionate (Sernivo) 0.05 % [place].pump, 1 APPLIC TP DAILY PRN for RASH, (Reported) Entered as Reported by: NICK CHAVES on 05/11/221246 Last Action: Converted Calcium Carbonate/Vitamin D3 (Calcium 600 + Vit D 800 Tab) 600 Mg Calcium-20 Mcg (800 Unit) Tablet, 1 EACH PO BID, (Reported) Entered as Reported by: NICK CHAVES on 05/11/221246 Last Action: Converted Diazepam (Diazepam) 5 Mg Tablet, 5 MG PO DAILY PRN for ANXIETY, (Reported) Entered as Reported by: NICK CHAVES on 05/11/221246 Last Action: Continued Diclofenac Sodium (Diclofenac Sodium) 1 % Gel..gram., 2 GM TP QID PRN for PAIN-BREAKTHROUGH, (Reported) Entered as Reported by: NICK CHAVES on 05/11/221246 Last Action: Continued Doxazosin Mesylate (Doxazosin Mesylate) 2 Mg Tablet, 2 MG PO HS, (Reported) Entered as Reported by: NICK CHAVES on 05/11/221246 Last Action: Continued Fenofibrate Nanocrystallized (Fenofibrate) 145 Mg Tablet, 145 MG PO HS, (Reported) Entered as Reported by: NICK CHAVES on 05/11/221246 Last Action: Converted Glucosamine/D3/Boswellia Cindy (Osteo Bi-Flex Tablet) 1,500 Mg-400 Unit-100 Mg Tablet, 1 EACH PO DAILY, (Reported) Entered as Reported by: NICK CHAVES on 05/11/221246 Last Action: Converted Melatonin (Melatonin) 5 Mg Tablet, 5 MG PO HS PRN for SLEEP, (Reported) Entered as Reported by: NICK CHAVES on 05/11/221246 Last Action: Converted Multivit-Min/Ferrous Fumarate (Multivitamin with Minerals Tab) 15 Mg Iron Tablet, 1 EA PO DAILY, (Reported) Entered as Reported by: NICK CHAVES on 05/11/221246 Last Action: Converted Niacin (Niacin) 500 Mg Tablet, 500 MG PO HS, (Reported) Entered as Reported by: NICK CHAVSE on 05/11/221246 Last Action: Continued Oxycodone HCl (Oxycodone HCl) 5 Mg Tablet, 5-10 MG PO EVERY 2 HOURS PRN for PAIN-SEVERE (8-10), (Reported) Entered as Reported by: NICK CHAVES on 05/11/221246 Last Action: Continued Pantoprazole Sodium (Pantoprazole Sodium) 40 Mg Tablet.dr, 40 MG PO DAILY, (Reported) Entered as Reported by: NICK CHAVES on 05/11/221246 Last Action: Continued Rifaximin (Xifaxan) 550 Mg Tablet, 550 MG PO TID, (Reported) Entered as Reported by: NICK CHAVES on 05/11/221246 Last Action: Continued Tramadol HCl (Tramadol HCl) 50 Mg Tablet, 50-100 MG PO Q6H PRN for PAIN-MODERATE (5-7), (Reported) Entered as Reported by: NICK CHAVES on 05/11/221246 Last Action: Continued Past Ksfjxuc-Dmczbs-Dmfnzj Hx Patient Social History Smoking Status: Never a Smoker Alcohol Use?: Yes (1-2 per year) Surgeries History of Surgeries: Yes Surgeries: Appendectomy, Orthopedic Respiratory History of Respiratory Disorde: No Cardiovascular History of Cardiac Disorders: Yes Cardiac Disorders: High Cholesterol, Hypertension Neurological History of Neurological Disord: No Genitourinary History of Genitourinary Disor: Yes Genitourinary Disorders: Benign Prostatic Hyperpl, Prostate Problems (prostate ca) Gastrointestinal History of Gastrointestinal Di: Yes Gastrointestinal Disorders: Diverticulosis (with recent diverticulitis) Musculoskeletal History of Musculoskeletal Dis: Yes (knee replacement) Endocrine History of Endocrine Disorders: No HEENT History of HEENT Disorders: No Hearing Impairment: Hard of Hearing Cancer History of Cancer: Yes Cancer: Prostate, Skin Psychosocial History of Psychiatric Problem: Yes Behavioral Health Disorders: Anxiety Family Medical History Significant Family History: No Pertinent Family Hx Review of Systems-General Constitutional: No chills, No diaphoresis Respiratory: cough (wet, productive ); No dyspnea on exertion Cardiovascular: No chest pain, No palpitations Gastrointestinal: No abdominal pain, No vomiting; other (bloating) Genitourinary: No discharge, No dysuria Musculoskeletal: No back pain; joint pain (knee) Psychiatric/Neurological: Denies Anxiety, Denies Depressed Physical Exam-General Problems Physical Exam General Appearance: WD/WN, no apparent distress Eyes: Bilateral Eye PERRL, Bilateral Eye EOMI HEENT: pharynx normal; No scleral icterus (R), No scleral icterus (L) Neck: non-tender, supple Respiratory: no respiratory distress, no accessory muscle use, crackles (/coarse) Cardiovascular: regular rate, rhythm, no murmur Gastrointestinal: non tender, soft, distended (??mildly), other (central adipo sity ) Extremities: no pedal edema, calf tenderness (pain from surgical site ) Neurologic/Psychiatric: alert, normal mood/affect, oriented x 3 Skin: normal color, warm/dry Assessment/Plan Assessment/Plan Assessment/Plan Constipation - Ileus most likely vs obstruction vs [place] Plan Continue liquid diet today, want to make sure bowels are moving. I told the pt that if he eats something solid and it just sits in his stomach, this will make him worse. Miralax - either 34g once or 17g bid + bisacodyl suppository once daily as tolerated, until patient has BM Continue to monitor. Will stick with conservative medical treatment options as long as patient is not having worsening distention or pain. Pt did start having a BM as my student left the room, we will see if he has one. Would take it slowly. Supervisory-Addendum Brief Verification & Attestation Participated in pt care: history, MDM, physical Personally performed: exam, history, MDM, supervision of care Care discussed with: Medical Student Procedures: n/a Verification and Attestation of Medical Student E/M Service A medical student performed and documented this service. I then reviewed and verified all information documented by the medical student and made modifications to such information, when appropriate. I personally performed a physical exam, medical decision making and then discussed any differences bet ween the notes and made revisions as necessary to create one note. Abdelrahman Huynh , 05/15/22 , 13:55 LUKE DE LA ROSA May 15, 2022 12:31 ABDELRAHMAN HUYNH DO May 15, 2022 13:45
--- NOTE | 2022-05-15 13:25 | Diagnostic Imaging Report ---
INDICATION: Rales COMPARISON: One day earlier AP view of the chest reveals mild increased perihilar and basilar atelectasis. There is no evidence of pneumothorax. No consolidation or other significant change is seen. IMPRESSION: Increasing bilateral atelectasis and/or mild pneumonitis. Dictated by: Dictated on workstation # [id number]
--- NOTE | 2022-05-15 14:04 | Physical Therapy Daily Note ---
PT Daily Note-Current Subjective Pt. and daughter present. Dtr supportive of therapy process. Pt. states he has had 2 BMs since AM Rx and feels a little bit better in his gut. Pt. agrees to try polar pack on knee for pain control Pain Numeric Pain Scale: 7 Location: Left Location Body Site: Knee Pain Description: Ache Section J - Health Conditions 1. Rarely or not at all 2. Occasionally 3. Frequently 4. Almost constantly 8. Unable to answer Pain Effect on Sleep: 2 Pain Interference with Therapy: 3 Pain Interference w/Day-to-Day: 3 Mental Status Patient Orientation: Normal For Age Transfers SCALE: Activities may be completed with or without assistive devices. 5-Mrmfweabvi-rwmamja completes the activity by him/herself with no assistance from a helper. 5-Set-up or Clean-up Assistance-helper sets up or cleans up; patient completes activity. [place] assists only prior to or following the activity. 4-Supervision or Touching Assistance-helper provides verbal cues and/or touchin g/steadying and/or contact guard assistance as patient completes activity. Assistance may be provided throughout the activity or intermittently. 3-Partial/Moderate Assistance-helper does LESS THAN HALF the effort. [place] lifts, holds or supports trunk or limbs, but provides less than half the effort. 2-Substantial/Maximal Assistance-helper does MORE THAN HALF the effort. [place] lifts or holds trunk or limbs and provides more than half the effort. 6-Thxfznlfi-yzfgjx does ALL the effort. Patient does none of the effort to complete the activity. Or, the assistance of 2 or more helpers is required for the patient to complete the activity. If activity was not attempted, code reason: 7-Patient Refused. 9-Not Applicable-not attempted and the patient did not perform the activity before the current illness, exacerbation or injury. 10-Not Attempted due to Environmental Limitations-(lack of equipment, weather restraints, etc.). 88-Not Attempted due to Medical Conditions or Safety Concerns. sit to stand and stand to sit all SBA Weight Bearing Right Lower Extremity: Right Full Weight Bearing Left Lower Extremity: Left Weight Bearing/Tolerated Gait Training Does the Patient Walk?: Yes Gait Assistive Device: [id number] SBA to CGA contd cues for step length and pattern Exercises Seated Therapy Exercises: Ankle pumps, Sit to stand, Long arc quads, Hip fl exion, Hamstring Curls Seated Reps: 12 Treatments TRFs, GT, seated L knee ex. polar pack on seated in recliner after Rx, priest at hand Assessment Current Status: Good Progress PT Unloader Goals [facility]ci Goals PT Unloader Goals Time Frame: Jun 20, 2022 Roll Left & Right (QC): 6 Sit to Lying (QC): 6 Lying-Sitting on Side/Bed(QC): 6 Sit to Stand (QC): 6 Chair/Yqq-az-Vsauz Xfer(QC): 6 Toilet Transfer (QC): 6 Car Transfer (QC): 6 Does the Patient Walk: Yes Walk 10 feet (QC): 6 Walk 50ft with 2 Turns (QC): 6 Walk 150 ft (QC): 4 Walking 10ft on Uneven Surface: 6 1 Step (curb) (QC): 3 4 Steps (QC): 3 12 Steps (QC): 3 Picking up an Object (QC): 6 Does the Pt use WC or Scooter?: Yes Wheel 50 feet with 2 turns (QC: 6 Type: Manual Wheel 150 feet: 6 Type: Manual PT Plan Treatment/Plan Treatment Plan: Continue Plan of Care Treatment Plan: Bed Mobility, Education, Functional Activity Christophe, Functional Strength, Group Therapy, Gait, Safety, Therapeutic Exercise, Transfers Treatment Duration: Jun 20, 2022 Frequency: At least 5 of 7 days/Wk (IRF) Estimated Hrs Per Day: 1.5 hours per day Patient and/or Family Agrees t: Yes Safety Risks/Education Patient Education: Gait Training, Transfer Techniques, Correct Positioning, Safety Issues Teaching Recipient: Patient Teaching Methods: Demonstration, Discussion Response to Teaching: Verbalize Understanding, Return Demonstration, Reinforcement Needed Time Time In: 1330 Time Out: 1400 DATE: May 15, 2022 Total Billed Treatment Time: 30 Total Billed Treatment 1,GT15m,EX15m GREGORY HANKS [employer]PING INSPECTOR May 15, 2022 14:04
[2022-05-15] MEDS: ASPIRIN E.C. 81 MG (ECOTRIN) TAB PO SCH (17:27)
[2022-05-15 19:38] VITALS: BP 123/69
[2022-05-15] MEDS: RT-ALBUTEROL SULF 2.5 MG/3 ML PRE-MIX VIAL INH SCH (19:54)
[2022-05-15] MEDS: FENOFIBRATE 134 MG (LOFIBRA) CAPSULE PO SCH (20:30)
[2022-05-15] MEDS: doxAzosin 2 MG (CARDURA) TAB PO SCH (20:31)
[2022-05-15] MEDS: NIACIN 500 MG TABLET PO SCH (20:31)
[2022-05-16] MEDS: ONDANSETRON 4 MG/2 ML (SDV) Z0FRAN IVP SCH ×5 (00:25→23:57)
[2022-05-16] MEDS: ACETAMINOPHEN 500 MG TAB (TYLENOL) PO SCH ×4 (00:25→23:57)
--- NOTE | 2022-05-16 05:55 | PM&R Progress Note ---
Subjective HPI/CC On Admission Date Seen by Provider: May 16, 2022 Time Seen by Provider: 12:00 Subjective/Events-last exam 05/16/2022: Very slow recovery Less nausea Had 4 watery stools but having a lot of gas Stool culture no growth today 05/15/2022: Reports he feels better and less nausea but only taking in CLD due to early ileus on xray I consulted Dr Pham and we conferred Labs stable Lungs have rales so will check CXR and order IS and Nebs BID 05/14/2022: Nausea continues Rifaximin will be held due to nausea high incidence on med profile Zofran scheduled Abd xray reveals ileus Monitor closely 05/13/2022: Doing better COVID was 04/25/22 Nausea persists so will continue scheduled Zofran 05/12/2022: Doing better Slow recovery IVF will continue Zofran scheduled has been helpful BP ok O2 not needed anymore hgb 10.5 Review of Systems General: Fatigue, Malaise Objective Exam Vital Signs Vital Signs Date Time Temp Pulse Resp B/P (MAP) Pulse Ox O2 Delivery O2 Flow Rate FiO2 05/16/22 09:30 Room Air 05/16/22 08:02 91 05/16/22 07:20 36.8 96 20 121/68 (85) 05/11/22 15:03 Capillary Refill : General Appearance: No Apparent Distress, WD/WN, Chronically ill, Obese HEENT: PERRL/EOMI, Normal ENT Inspection, Pharynx Normal Neck: Full Range of Motion, Normal Inspection, Non Tender, Supple, Carotid Bruit Respiratory: Chest Non Tender, No Accessory Muscle Use, No Respiratory Distress, Crackles Cardiovascular: Regular Rate, Rhythm, No Edema, No Gallop, No JVD, No Murmur, Normal Peripheral Pulses Gastrointestinal: Normal Bowel Sounds, No Organomegaly, No Pulsatile Mass, Non Tender, Soft Back: Normal Inspection, No CVA Tenderness, No Vertebral Tenderness Extremity: Normal Capillary Refill, Normal Inspection, Normal Range of Motion (except left leg), Non Tender, No Calf Tenderness, No Pedal Edema Neurologic/Psychiatric: Alert, Oriented x3, No Motor/Sensory Deficits, Normal 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 FIM Transfers Therapy Code Descriptions/Definitions Functional [place] Measure: 0=Not Assessed/NA 4=Minimal Assistance 1=Total Assistance 5=Supervision or Setup 2=Maximal Assistance 6=Modified [place] 3=Moderate Assistance 7=Complete IndependenceSCALE: Activities may be completed with or without assistive devices. 8-Ifwrlsszbw-qhwwndi completes the activity by him/herself with no assistance from a helper. 5-Set-up or Clean-up Assistance-helper sets up or cleans up; patient completes activity. [place] assists only prior to or following the activity. 4-Supervision or Touching Assistance-helper provides verbal cues and/or touching/steadying and/or contact guard assistance as patient completes activity. Assistance may be provided throughout the activity or intermittently. 3-Partial/Moderate Assistance-helper does LESS THAN HALF the effort. [place] lifts, holds or supports trunk or limbs, but provides less than half the effort. 2-Substantial/Maximal Assistance-helper does MORE THAN HALF the effort. [place] lifts or holds trunk or limbs and provides more than half the effort. 4-Jmbazmhfn-irxpyl does ALL the effort. Patient does none of the effort to complete the activity. Or, the assistance of 2 or more helpers is required for the patient to complete the activity. If activity was not attempted, code reason: 7-Patient Refused. 9-Not Applicable-not attempted and the patient did not perform the activity before the current illness, exacerbation or injury. 10-Not Attempted due to Environmental Limitations-(lack of equipment, weather restraints, etc.). 88-Not Attempted due to Medical Conditions or Safety Concerns. Roll Left to Right (QC): 6 Sit to Lying (QC): 6 Sit to Stand (QC): 6 Chair/Usc-so-Cnblx Xfer(QC): 6 Car Transfer (QC): 3 Gait Training Does the Patient Walk?: Yes Distance: 20', 30', 60', 30', 30', 60' Walk 10 feet (QC): 4 Walk 50 ft with 2 Turns(QC): 4 Walk 150 ft (QC): 4 Walking 10ft/uneven surface-QC: 3 Gait Persons Needed: 1 Gait Assistive Device: FWW Wheelchair Training Does the Pt Use a Wheelchair?: Yes Distance: See PT goals Wheel 50 ft with 2 turns (QC): 4 Wheel 150 ft (QC): 1 Type of Wheelchair: Manual Stair Training #of Steps: 0 1 Step (curb) (QC): 88 4 Steps (QC): 88 12 Steps (QC): 88 Balance Picking up an Object (QC): 4 ADL-Treatment Eating (QC): 6 (Pt. eats crackers at bedside for stomach.) Oral Hygiene (QC): 6 Shower/Bathe Self (QC): 7 (Declines. States that he showered yesterday.) Upper Body Dressing (QC): 5 (set up ) Lower Body Dressing (QC): 4 (SBA) On/Off Footwear (QC): 3 (Min assist) Toileting Hygiene (QC): 4 (CGA when getting on/off toilet. Pt. able to pull down and up his pants and cleanse self after BM.) Toilet Transfer (QC): 4 Assessment/Plan Assessment and Plan Assess & Plan/Chief Complaint A: S/P LTKA due to osteoarthritis Dr Price 05/05/2022 Weakness Diarrhea COVID recent 3 weeks ago s/p Paxlovid Hypoxia requiring O2 new onset h/o falls HTN Nausea Anxiety Diverticulosis BPH Osteoarthritis Subacute nausea refractory so holding Rifaximin Dehydration requiring 48 hours of IVF RBBB Ileus on xray consulting Dr Pham Crackles on lung exam checking CXR and added IS and Nebs Plan: Pain control Nausea treatment IVF Pain control Aggressive PT OT 05/12/2022: IVF Supportive care 05/13/2022: Monitor closely HLIVF 05/14/2022: KUB Hold Rifaximin 05/15/2022: Check CXR Nebs IS 05/16/2022: Supportive care Use incentive spirometer (1) History of arthroplasty of right knee (2) Nausea (3) History of COVID-19 (4) Hypoxia AMY GROVES DO May 16, 2022 05:55
[2022-05-16] MEDS: MULTIVIT W/MINERALS TAB (THERAGRAN M) PO SCH (06:06)
[2022-05-16 07:20] VITALS: BP 121/68
[2022-05-16] MEDS: RT-ALBUTEROL SULF 2.5 MG/3 ML PRE-MIX VIAL INH SCH ×2 (08:02→19:20)
[2022-05-16] MEDS: CALCIUM CARB + VIT D 600 MG (CALCARB + D) TAB PO SCH ×2 (08:08→17:13)
[2022-05-16] MEDS: PANTOPRAZOLE 40 MG (PROTONIX) TAB PO SCH (08:08)
[2022-05-16] MEDS: ASCORBIC ACID (VIT C) 500 MG TABLET PO SCH (08:08)
[2022-05-16] MEDS: polyethylene glycoL POWDER 17 GM (MIRALAX) PACK PO SCH ×2 (08:09→19:19)
[2022-05-16] MEDS: SENNA W/DOCUSATE (SENOKOT S) TABLET PO SCH ×2 (08:09→19:19)
[2022-05-16] MEDS: DOCUSATE SODIUM 100 MG (COLACE) CAP PO SCH ×2 (08:09→19:19)
--- NOTE | 2022-05-16 09:44 | Physical Therapy Daily Note ---
PT Daily Note-Current Subjective Pt sitting in recliner upon arrival. Pt agrees to PT. Pain Numeric Pain Scale: 7 Location: Left Location Body Site: Knee Section J - Health Conditions 1. Rarely or not at all 2. Occasionally 3. Frequently 4. Almost constantly 8. Unable to answer Pain Effect on Sleep: 2 Pain Interference with Therapy: 3 Pain Interference w/Day-to-Day: 3 Mental Status Patient Orientation: Person, Place, Situation Transfers SCALE: Activities may be completed with or without assistive devices. 7-Rdhyblcymw-wiendzz completes the activity by him/herself with no assistance from a helper. 5-Set-up or Clean-up Assistance-helper sets up or cleans up; patient completes activity. [place] assists only prior to or following the activity. 4-Supervision or Touching Assistance-helper provides verbal cues and/or touching/steadying and/or contact guard assistance as patient completes activity. Assistance may be provided throughout the activity or intermittently. 3-Partial/Moderate Assistance-helper does LESS THAN HALF the effort. [place] lifts, holds or supports trunk or limbs, but provides less than half the effort. 2-Substantial/Maximal Assistance-helper does MORE THAN HALF the effort. [place] lifts or holds trunk or limbs and provides more than half the effort. 6-Egwoyjfgm-dygfyt does ALL the effort. Patient does none of the effort to complete the activity. Or, the assistance of 2 or more helpers is required for the patient to complete the activity. If activity was not attempted, code reason: 7-Patient Refused. 9-Not Applicable-not attempted and the patient did not perform the activity before the current illness, exacerbation or injury. 10-Not Attempted due to Environmental Limitations-(lack of equipment, weather restraints, etc.). 88-Not Attempted due to Medical Conditions or Safety Concerns. Sit to Stand (QC): 5 Weight Bearing Right Lower Extremity: Right Full Weight Bearing Left Lower Extremity: Left Weight Bearing/Tolerated Gait Training Does the Patient Walk?: Yes Distance: 100', 150' Walk 10 feet (QC): 5 Walk 50 ft with 2 Turns(QC): 5 Walk 150 ft (QC): 5 Gait Assistive Device: FWW VC to WB as much as possible since pt likes to keep L knee flexed when walking. Wheelchair Training Does the Pt Use a Wheelchair?: No Exercises NuStep Minutes: 10 NuStep Workload: 6 Treatments TF to standing and amb. in hallway. Pt uses NuStep then takes short RB. Pt amb. in hallway before returning to room [facility] est in recliner. All needs met, call light in hand. Assessment Current Status: Fair Progress Pt continues to reports pain with ambulation and keeps L knee flexed during walk. PT Quality Assurance Monitor Chassis Goals Usp Goals PT Usp Goals Time Frame: Jun 20, 2022 Roll Left & Right (QC): 6 Sit to Lying (QC): 6 Lying-Sitting on Side/Bed(QC): 6 Sit to Stand (QC): 6 Chair/Ool-wo-Wghhb Xfer(QC): 6 Toilet Transfer (QC): 6 Car Transfer (QC): 6 Does the Patient Walk: Yes Walk 10 feet (QC): 6 Walk 50ft with 2 Turns (QC): 6 Walk 150 ft (QC): 4 Walking 10ft on Uneven Surface: 6 1 Step (curb) (QC): 3 4 Steps (QC): 3 12 Steps (QC): 3 Picking up an Object (QC): 6 Does the Pt use WC or Scooter?: Yes Wheel 50 feet with 2 turns (QC: 6 Type: Manual Wheel 150 feet: 6 Type: Manual PT Plan Problem List Problem List: Gait Treatment/Plan Treatment Plan: Continue Plan of Care Treatment Plan: Bed Mobility, Education, Functional Activity Christophe, Functional Strength, Group Therapy, Gait, Safety, Therapeutic Exercise, Transfers Treatment Duration: Jun 20, 2022 Frequency: At least 5 of 7 days/Wk (IRF) Estimated Hrs Per Day: 1.5 hours per day Patient and/or Family Agrees t: Yes Safety Risks/Education Patient Education: Gait Training, Correct Positioning, Safety Issues Teaching Recipient: Patient Teaching Methods: Discussion Response to Teaching: Verbalize Understanding Time Time In: 820 Time Out: 845 DATE: May 16, 2022 Total Billed Treatment Time: 25 Total Billed Treatment 1, GT (15m) & EX (10m) ERIC MO SAUSAGE CUTTER May 16, 2022 09:44
--- NOTE | 2022-05-16 10:31 | Progress Note - Surgery ---
LUKE DE LA ROSA 05/16/22 1031: Subjective Date Seen by a Provider: May 16, 2022 Time Seen by a Provider: 09:05 Subjective/Events-last exam Patient sitting in chair comfortably. States he has not had a solid bowel movement, but had one episode of watery stool. Patient does state he has been passing large volumes of gas. Patient states he is not in pain and is not uncomfortable. But he is nervous about not having a bowel movement. Asking for a enema or suppository so that he can have a bowel movement. Patient does have three packs of gum on his table and states he has been chewing gum. Review of Systems General: No Chills, No Night Sweats HEENT: No Head Aches, No Visual Changes Pulmonary: No Dyspnea; Cough Cardiovascular: No: Chest Pain, Palpitations Gastrointestinal: Constipation; No: Nausea, Vomiting, Abdominal Pain Genitourinary: No Dysuria, No Frequency Neurological: No: Weakness, Numbness Objective Exam Vital Signs Date Time Temp Pulse Resp B/P (MAP) Pulse Ox O2 Delivery O2 Flow Rate FiO2 05/16/22 09:30 Room Air 05/16/22 08:02 91 Room Air 05/16/22 07:20 36.8 96 20 121/68 (85) 94 Room Air 05/15/22 20:10 Room Air 05/15/22 19:54 94 Room Air 05/15/22 19:38 37.3 90 20 123/69 (87) 93 Room Air I & O 05/16/22 07:00 Intake Total 2230 ml Output Total 600 ml Balance 1630 ml Capillary Refill : General Appearance: No Apparent Distress, Obese HEENT: PERRL/EOMI Neck: Non Tender, Supple Respiratory: Chest Non Tender, Lungs Clear, Normal Breath Sounds, No Accessory Muscle Use, No Respiratory Distress Cardiovascular: Regular Rate, Rhythm, No Murmur, Normal Peripheral Pulses Gastrointestinal: non tender, soft, other (central adiposity, soft, non-tender, non-distended ) Extremity: Non Tender, No Calf Tenderness, No Pedal Edema Neurologic/Psychiatric: Alert, Oriented x3, Normal Mood/Affect Skin: Normal Color, Warm/Dry Results Lab Microbiology 05/14/22 Fecal Leukocyte Stain - Final, Complete Assessment/Plan Assessment/Plan Assessment/Plan Constipation - Ileus most likely vs obstruction vs [place]'s Plan Miralax - either 34g once or 17g bid Bisacodyl suppository once daily as tolerated, until patient has BM Continue liquid diet, want to make sure bowels are moving before progressing diet. Patient concerned about ability to have BM without solid food. Explained to patient that he has stool in his bowels that we can see on imaging, and that regardless of what he eats now, the stool will still pass. Continue to monitor. Will stick with conservative medical treatment options as long as patient is not having worsening distention or pain. RENZO PHAM DO 05/16/22 1312: Subjective Time Seen by a Provider: 12:31 Subjective/Events-last exam Pt seen and examined, states he feels ok and is having some small liquid BMs. He is asking to eat more. Review of Systems General: No Chills, No Night Sweats Pulmonary: No Dyspnea Cardiovascular: No: Chest Pain, Palpitations Gastrointestinal: No: Nausea, Vomiting, Abdominal Pain Objective Exam General Appearance: No Apparent Distress, Obese HEENT: PERRL/EOMI Respiratory: Chest Non Tender, Lungs Clear, Normal Breath Sounds, No Accessory Muscle Use, No Respiratory Distress Cardiovascular: Regular Rate, Rhythm, No Murmur Gastrointestinal: non tender, soft, other (central adiposity, soft, non-tender, non-distended ) Assessment/Plan Assessment/Plan Assessment/Plan Constipation - Ileus most likely vs obstruction vs [place]'s Plan Miralax - either 34g once or 17g bid Bisacodyl suppository once daily as tolerated, until patient has BM Will start a soft diet and give pt a Dulcolax suppository. Continue to monitor. Will stick with conservative medical treatment options as long as patient is not having worsening distention or pain. Supervisory-Addendum Brief Verification & Attestation Participated in pt care: history, MDM, physical Personally performed: exam, history, MDM, supervision of care Care discussed with: Medical Student Procedures: n/a Verification and Attestation of Medical Student E/M Service A medical student performed and documented this service. I then reviewed and verified all information documented by the medical student and made m odifications to such information, when appropriate. I personally performed a physical exam, medical decision making and then discussed any differences between the notes and made revisions as necessary to create one note. Renzo Pham , 05/16/22 , 13:12 LUKE DE LA ROSA May 16, 2022 10:31 RENZO PHAM DO May 16, 2022 13:12
[2022-05-16] MEDS: BISACODYL 10 MG SUPP (DULCOLAX) PR PRN (14:39)
[2022-05-16] MEDS: ASPIRIN E.C. 81 MG (ECOTRIN) TAB PO SCH (17:12)
[2022-05-16] MEDS: LACTULOSE SYRUP 10GM/15ML (ENULOSE) 30ML UDC PO PRN (17:18)
[2022-05-16 19:38] VITALS: BP 115/70
[2022-05-16] MEDS: NIACIN 500 MG TABLET PO SCH (20:02)
[2022-05-16] MEDS: doxAzosin 2 MG (CARDURA) TAB PO SCH (20:02)
[2022-05-16] MEDS: FENOFIBRATE 134 MG (LOFIBRA) CAPSULE PO SCH (20:03)
--- NOTE | 2022-05-17 06:11 | PM&R Progress Note ---
Subjective HPI/CC On Admission Date Seen by Provider: May 17, 2022 Time Seen by Provider: 12:00 Subjective/Events-last exam 05/17/2022: Patient doing a little better Slow recovery Suppository resulted in just loose watery stools Feels bloated Soft diet tolerated Lungs are improved with crackles Chest x-ray remains with atelectasis 05/16/2022: Very slow recovery Less nausea Had 4 watery stools but having a lot of gas Stool culture no growth today 05/15/2022: Reports he feels better and less nausea but only taking in CLD due to early ileus on xray I consulted Dr Pham and we conferred Labs stable Lungs have rales so will check CXR and order IS and Nebs BID 05/14/2022: Nausea continues Rifaximin will be held due to nausea high incidence on med profile Zofran scheduled Abd xray reveals ileus Monitor closely 05/13/2022: Doing better COVID was 04/25/22 Nausea persists so will continue scheduled Zofran 05/12/2022: Doing better Slow recovery IVF will continue Zofran scheduled has been helpful BP ok O2 not needed anymore hgb 10.5 Review of Systems General: Fatigue, Malaise Pulmonary: Dyspnea, Cough Gastrointestinal: Diarrhea Objective Exam Vital Signs Vital Signs Date Time Temp Pulse Resp B/P (MAP) Pulse Ox O2 Delivery O2 Flow Rate FiO2 05/17/22 09:00 Room Air 05/17/22 08:36 97 05/17/22 07:53 36.2 96 18 132/67 (88) 05/11/22 15:03 Capillary Refill : General Appearance: No Apparent Distress, WD/WN, Chronically ill, Obese HEENT: PERRL/EOMI, Normal ENT Inspection, Pharynx Normal Neck: Full Range of Motion, Normal Inspection, Non Tender, Supple, Carotid Bruit Respiratory: Chest Non Tender, No Accessory Muscle Use, No Respiratory Distress, Crackles Cardiovascular: Regular Rate, Rhythm, No Edema, No Gallop, No JVD, No Murmur, Normal Peripheral Pulses Gastrointestinal: Normal Bowel Sounds, No Organomegaly, No Pulsatile Mass, Non Tender, Soft Back: Normal Inspection, No CVA Tenderness, No Vertebral Tenderness Extremity: Normal Capillary Refill, Normal Inspection, Normal Range of Motion (except left leg), Non Tender, No Calf Tenderness, No Pedal Edema Neurologic/Psychiatric: Alert, Oriented x3, No Motor/Sensory Deficits, Normal 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 FIM Transfers Therapy Code Descriptions/Definitions Functional [place] Measure: 0=Not Assessed/NA 4=Minimal Assistance 1=Total Assistance 5=Supervision or Setup 2=Maximal Assistance 6=Modified [place] 3=Moderate Assistance 7=Complete IndependenceSCALE: Activities may be completed with or without assistive devices. 1-Xlqfueqmbb-ecejavv completes the activity by him/herself with no assistance from a helper. 5-Set-up or Clean-up Assistance-helper sets up or cleans up; patient completes activity. [place] assists only prior to or following the activity. 4-Supervision or Touching Assistance-helper provides verbal cues and/or touching/steadying and/or contact guard assistance as patient completes activity. Assistance may be provided throughout the activity or intermittently. 3-Partial/Moderate Assistance-helper does LESS THAN HALF the effort. [place] lifts, holds or supports trunk or limbs, but provides less than half the effort. 2-Substantial/Maximal Assistance-helper does MORE THAN HALF the effort. [place] lifts or holds trunk or limbs and provides more than half the effort. 3-Zlzmmgcik-ovssiq does ALL the effort. Patient does none of the effort to complete the activity. Or, the assistance of 2 or more helpers is required for the patient to complete the activity. If activity was not attempted, code reason: 7-Patient Refused. 9-Not Applicable-not attempted and the patient did not perform the activity before the current illness, exacerbation or injury. 10-Not Attempted due to Environmental Limitations-(lack of equipment, weather restraints, etc.). 88-Not Attempted due to Medical Conditions or Safety Concerns. Roll Left to Right (QC): 6 Sit to Lying (QC): 6 Sit to Stand (QC): 5 Chair/Clr-ot-Uclpw Xfer(QC): 6 Car Transfer (QC): 3 Gait Training Does the Patient Walk?: Yes Distance: 100', 150' Walk 10 feet (QC): 5 Walk 50 ft with 2 Turns(QC): 5 Walk 150 ft (QC): 5 Walking 10ft/uneven surface-QC: 3 Gait Persons Needed: 1 Gait Assistive Device: FWW Wheelchair Training Does the Pt Use a Wheelchair?: No Distance: See PT goals Wheel 50 ft with 2 turns (QC): 4 Wheel 150 ft (QC): 1 Type of Wheelchair: Manual Stair Training #of Steps: 0 1 Step (curb) (QC): 88 4 Steps (QC): 88 12 Steps (QC): 88 Balance Picking up an Object (QC): 4 ADL-Treatment Eating (QC): 6 (Pt. eats crackers at bedside for stomach.) Oral Hygiene (QC): 6 Shower/Bathe Self (QC): 7 (Declines. States that he showered yesterday.) Upper Body Dressing (QC): 5 (set up ) Lower Body Dressing (QC): 4 (SBA) On/Off Footwear (QC): 3 (Min assist) Toileting Hygiene (QC): 4 (CGA when getting on/off toilet. Pt. able to pull down and up his pants and cleanse self after BM.) Toilet Transfer (QC): 4 Assessment/Plan Assessment and Plan Assess & Plan/Chief Complaint A: S/P LTKA due to osteoarthritis Dr Price 05/05/2022 Weakness Diarrhea COVID recent 3 weeks ago s/p Paxlovid Hypoxia requiring O2 new onset h/o falls HTN Nausea Anxiety Diverticulosis BPH Osteoarthritis Subacute nausea refractory so holding Rifaximin Dehydration requiring 48 hours of IVF RBBB Ileus on xray consulting Dr Pham Crackles on lung exam checking CXR and added IS and Nebs Plan: Pain control Nausea treatment IVF Pain control Aggressive PT OT 05/12/2022: IVF Supportive care 05/13/2022: Monitor closely HLIVF 05/14/2022: KUB Hold Rifaximin 05/15/2022: Check CXR Nebs IS 05/16/2022: Supportive care Use incentive spirometer 05/17/2022: Supportive care Soft diet Incentive spirometer use (1) History of arthroplasty of right knee (2) Nausea (3) History of COVID-19 (4) Hypoxia AMY GROVES DO May 17, 2022 06:11
[2022-05-17] MEDS: MULTIVIT W/MINERALS TAB (THERAGRAN M) PO SCH (06:34)
[2022-05-17] MEDS: ONDANSETRON 4 MG/2 ML (SDV) Z0FRAN IVP SCH ×3 (06:34→17:18)
[2022-05-17 07:28] LABS: BASOPHILS % (AUTO) 0 % (0-10); EOSINOPHILS # (AUTO) 0.3 10^3/uL (0.0-0.3); EOSINOPHILS % (AUTO) 6 % (0-10); HEMATOCRIT 32 % (40-54); HEMOGLOBIN 10.7 g/dL (13.3-17.7); LYMPHOCYTES # (AUTO) 0.7 10^3/uL (1.0-4.0); LYMPHOCYTES % (AUTO) 15 % (12-44); MEAN CORPUSCULAR HEMOGLOBIN 30 pg (25-34); MEAN CORPUSCULAR HGB CONC 34 g/dL (32-36); MEAN CORPUSCULAR VOLUME 89 fL (80-99); MEAN PLATELET VOLUME 8.6 fL (9.0-12.2); MONOCYTES # (AUTO) 0.4 10^3/uL (0.0-1.0); MONOCYTES % (AUTO) 8 % (0-12); NEUTROPHILS # (AUTO) 3.5 10^3/uL (1.8-7.8); NEUTROPHILS % (AUTO) 70 % (42-75); PLATELET COUNT 235 10^3/uL (130-400)
[2022-05-17 07:49] LABS: ALBUMIN 3.1 GM/DL (3.2-4.5); BILIRUBIN,TOTAL 0.7 MG/DL (0.1-1.0); CALCIUM 8.8 MG/DL (8.5-10.1); CREATININE SERUM 1.22 MG/DL (0.60-1.30); POTASSIUM 3.5 MMOL/L (3.6-5.0); TOTAL PROTEIN 5.4 GM/DL (6.4-8.2)
[2022-05-17 07:53] VITALS: BP 132/67
--- NOTE | 2022-05-17 08:10 | Diagnostic Imaging Report ---
EXAMINATION: Chest 1 view HISTORY: Pneumonia COMPARISON: 05/15/2022 FINDINGS: Bibasilar atelectasis or pneumonia is stable. No pneumothorax. There is a small left effusion. Heart size is normal. IMPRESSION: 1. Stable small left effusion and bibasilar atelectasis or pneumonia. Dictated by: Dictated on workstation # [id number]
[2022-05-17] MEDS: CALCIUM CARB + VIT D 600 MG (CALCARB + D) TAB PO SCH ×2 (08:16→17:18)
[2022-05-17] MEDS: DOCUSATE SODIUM 100 MG (COLACE) CAP PO SCH ×2 (08:16→20:22)
[2022-05-17] MEDS: ACETAMINOPHEN 500 MG TAB (TYLENOL) PO SCH ×2 (08:16→17:18)
[2022-05-17] MEDS: ASCORBIC ACID (VIT C) 500 MG TABLET PO SCH (08:16)
[2022-05-17] MEDS: SENNA W/DOCUSATE (SENOKOT S) TABLET PO SCH ×2 (08:16→20:22)
[2022-05-17] MEDS: LACTULOSE SYRUP 10GM/15ML (ENULOSE) 30ML UDC PO PRN (08:17)
[2022-05-17] MEDS: PANTOPRAZOLE 40 MG (PROTONIX) TAB PO SCH (08:17)
[2022-05-17] MEDS: polyethylene glycoL POWDER 17 GM (MIRALAX) PACK PO SCH ×2 (08:17→20:22)
[2022-05-17] MEDS: RT-ALBUTEROL SULF 2.5 MG/3 ML PRE-MIX VIAL INH SCH ×2 (08:35→20:03)
--- NOTE | 2022-05-17 13:15 | Progress Note - Surgery ---
LUKE DE LA ROSA 05/17/22 1315: Subjective Date Seen by a Provider: May 17, 2022 Time Seen by a Provider: 09:30 Subjective/Events-last exam Resting in chair. Still no BM. Denies discomfort. Denies Pain. Does endorse a little bit of bloating. Review of Systems General: No Chills, No Night Sweats HEENT: No Head Aches, No Visual Changes Pulmonary: No Dyspnea, No Cough Cardiovascular: No: Chest Pain Gastrointestinal: Constipation; No: Nausea, Vomiting, Abdominal Pain Genitourinary: No Dysuria, No Frequency Musculoskeletal: leg pain (TKR ) Neurological: No: Weakness, Numbness Objective Exam Vital Signs Date Time Temp Pulse Resp B/P (MAP) Pulse Ox O2 Delivery O2 Flow Rate FiO2 05/17/22 09:00 Room Air 05/17/22 08:36 97 Room Air 05/17/22 07:53 36.2 96 18 132/67 (88) 94 Room Air 05/16/22 20:10 Room Air 05/16/22 19:38 36.8 96 18 115/70 (85) 92 Room Air 05/16/22 19:20 92 Room Air I & O 05/17/22 07:00 Intake Total 1960 ml Output Total 600 ml Balance 1360 ml Capillary Refill : General Appearance: No Apparent Distress, Anxious, Obese HEENT: PERRL/EOMI Neck: Non Tender, Supple Respiratory: Chest Non Tender, No Accessory Muscle Use, No Respiratory Distress, Crackles (bibasilar) Cardiovascular: Regular Rate, Rhythm, No Murmur, Normal Peripheral Pulses Gastrointestinal: non tender, soft, other (central adiposity, soft, non-tender, non-distended ) Extremity: No Calf Tenderness, No Pedal Edema, Other (Pain and mild swelling in replaced knee ) Neurologic/Psychiatric: Alert, Oriented x3, Normal Mood/Affect Skin: Normal Color, Warm/Dry Results Lab Laboratory Tests 05/17/22 07:00: White Blood Count 5.0, Red Blood Count 3.55L, Hemoglobin 10.7L, Hematocrit 32L, Mean Corpuscular Volume 89, Mean Corpuscular Hemoglobin 30, Mean Corpuscular Hemoglobin Concent 34, Red Cell Distribution Width 14.0, Platelet Count 235, Mean Platelet Volume 8.6L, Immature Granulocyte % (Auto) 2, Neutrophils (%) (Auto) 70, Lymphocytes (%) (Auto) 15, Monocytes (%) (Auto) 8, Eosinophils (%) (Auto) 6, Basophils (%) (Auto) 0, Neutrophils # (Auto) 3.5, Lymphocytes # (Auto) 0.7L, Monocytes # (Auto) 0.4, Eosinophils # (Auto) 0.3, Basophils # (Auto) 0.0, Immature Granulocyte # (Auto) 0.1, Sodium Level 139, Potassium Level 3.5L, Chloride Level 103, Carbon Dioxide Level 24, Anion Gap 12, Blood Urea Nitrogen 10, Creatinine 1.22, Estimat Glomerular Filtration Rate 58, BUN/Creatinine Ratio 8, Glucose Level 80, Calcium Level 8.8, Corrected Calcium 9.5, Total Bilirubin 0.7, Aspartate Amino Transf (AST/SGOT) 18, Alanine Aminotransferase (ALT/SGPT) 15, Alkaline Phosphatase 40, Total Protein 5.4L, Albumin 3.1L, Procalcitonin 0.04 Microbiology 05/14/22 Fecal Leukocyte Stain - Final, Complete Assessment/Plan Assessment/Plan Assessment/Plan Constipation - Ileus most likely vs obstruction vs [place]'s Plan Miralax - either 34g once or 17g bid Bisacodyl suppository once daily as tolerated, until patient has BM Patient states he does feel a little more distended today, but not uncomfortable. Passing a lot of "hot gas" and one small runny stool. Will continue conservative management at this time. We are available by call at any time if patient's clinical status begins to worsen. RENZO PHAM DO 05/17/22 1405: Subjective Time Seen by a Provider: 13:51 Subjective/Events-last exam Pt seen and examined, sitting in chair and appears to be comfortable. He denied abdominal pain, still only having small liquid stools. Review of Systems General: No Chills, No Night Sweats Pulmonary: No Dyspnea, No Cough Cardiovascular: No: Chest Pain Gastrointestinal: Constipation; No: Nausea, Vomiting, Abdominal Pain Genitourinary: No Dysuria, No Frequency Objective Exam General Appearance: No Apparent Distress, Anxious, Obese HEENT: PERRL/EOMI Respiratory: Chest Non Tender, No Accessory Muscle Use, No Respiratory Distress, Crackles (bibasilar) Cardiovascular: Regular Rate, Rhythm Gastrointestinal: non tender, soft, distended Extremity: No Calf Tenderness, No Pedal Edema Neurologic/Psychiatric: Alert, Oriented x3, Normal Mood/Affect Assessment/Plan Assessment/Plan Assessment/Plan Constipation - Ileus most likely vs obstruction vs Indira's Plan Miralax - either 34g once or 17g bid Bisacodyl suppository once daily as tolerated, until patient has BM Patient states he does feel a little more distended today, but not uncomfortable. Passing a lot of "hot gas" and one small runny stool. Will continue conservative management at this time. We are available by call at any time if patient's clinical status begins to worsen. Supervisory-Addendum Brief Verification & Attestation Participated in pt care: history, MDM, physical Personally performed: exam, history, MDM, supervision of care Care discussed with: Medical Student Procedures: n/a Verification and Attestation of Medical Student E/M Service A medical student performed and documented this service. I then reviewed and verified all information documented by the medical student and made modifications to such information, when appropriate. I personally performed a physical exam, medical decision making and then discussed any differences between the notes and made revisions as necessary to create one note. Renzo Pham , 05/17/22 , 14:05 LUKE DE LA ROSA May 17, 2022 13:15 RENZO PHAM DO May 17, 2022 14:05
[2022-05-17] MEDS: BISACODYL 10 MG SUPP (DULCOLAX) PR PRN (15:32)
[2022-05-17] MEDS: ASPIRIN E.C. 81 MG (ECOTRIN) TAB PO SCH (17:18)
[2022-05-17] MEDS: doxAzosin 2 MG (CARDURA) TAB PO SCH (20:14)
[2022-05-17] MEDS: FENOFIBRATE 134 MG (LOFIBRA) CAPSULE PO SCH (20:14)
[2022-05-17] MEDS: NIACIN 500 MG TABLET PO SCH (20:14)
[2022-05-17 20:55] VITALS: BP 122/60
[2022-05-18] MEDS: ACETAMINOPHEN 500 MG TAB (TYLENOL) PO SCH ×4 (00:07→23:53)
[2022-05-18] MEDS: ONDANSETRON 4 MG/2 ML (SDV) Z0FRAN IVP SCH ×2 (00:07→06:23)
[2022-05-18] MEDS: MULTIVIT W/MINERALS TAB (THERAGRAN M) PO SCH (06:23)
[2022-05-18 07:23] VITALS: BP 126/70
[2022-05-18] MEDS: PANTOPRAZOLE 40 MG (PROTONIX) TAB PO SCH (08:14)
[2022-05-18] MEDS: ASCORBIC ACID (VIT C) 500 MG TABLET PO SCH (08:14)
[2022-05-18] MEDS: SENNA W/DOCUSATE (SENOKOT S) TABLET PO SCH ×2 (08:14→21:31)
[2022-05-18] MEDS: CALCIUM CARB + VIT D 600 MG (CALCARB + D) TAB PO SCH ×2 (08:15→17:19)
[2022-05-18] MEDS: DOCUSATE SODIUM 100 MG (COLACE) CAP PO SCH ×2 (08:15→21:31)
[2022-05-18] MEDS: polyethylene glycoL POWDER 17 GM (MIRALAX) PACK PO SCH ×2 (08:15→21:31)
[2022-05-18] MEDS ORDERED: ONDANSETRON 4 MG/2 ML (SDV) Z0FRAN IVP PRN (09:00)
--- NOTE | 2022-05-18 09:45 | PM&R Progress Note ---
Subjective HPI/CC On Admission Date Seen by Provider: May 18, 2022 Time Seen by Provider: 09:15 Subjective/Events-last exam 05/18/2022: Pt is doing a lot better Pt feels better Zofran will be changed to prn White count is normal 05/17/2022: Patient doing a little better Slow recovery Suppository resulted in just loose watery stools Feels bloated Soft diet tolerated Lungs are improved with crackles Chest x-ray remains with atelectasis 05/16/2022: Very slow recovery Less nausea Had 4 watery stools but having a lot of gas Stool culture no growth today 05/15/2022: Reports he feels better and less nausea but only taking in CLD due to early ileus on xray I consulted Dr Pham and we conferred Labs stable Lungs have rales so will check CXR and order IS and Nebs BID 05/14/2022: Nausea continues Rifaximin will be held due to nausea high incidence on med profile Zofran scheduled Abd xray reveals ileus Monitor closely 05/13/2022: Doing better COVID was 04/25/22 Nausea persists so will continue scheduled Zofran 05/12/2022: Doing better Slow recovery IVF will continue Zofran scheduled has been helpful BP ok O2 not needed anymore hgb 10.5 Objective Exam Vital Signs Vital Signs Date Time Temp Pulse Resp B/P (MAP) Pulse Ox O2 Delivery O2 Flow Rate FiO2 05/18/22 21:20 93 Room Air 05/18/22 20:30 36.9 88 20 110/58 (75) Capillary Refill : General Appearance: No Apparent Distress, WD/WN, Chronically ill, Obese HEENT: PERRL/EOMI, Normal ENT Inspection, Pharynx Normal Neck: Full Range of Motion, Normal Inspection, Non Tender, Supple, Carotid Brui t Respiratory: Chest Non Tender, No Accessory Muscle Use, No Respiratory Distress, Crackles Cardiovascular: Regular Rate, Rhythm, No Edema, No Gallop, No JVD, No Murmur, Normal Peripheral Pulses Gastrointestinal: Normal Bowel Sounds, No Organomegaly, No Pulsatile Mass, Non Tender, Soft Back: Normal Inspection, No CVA Tenderness, No Vertebral Tenderness Extremity: Normal Capillary Refill, Normal Inspection, Normal Range of Motion (except left leg), Non Tender, No Calf Tenderness, No Pedal Edema Neurologic/Psychiatric: Alert, Oriented x3, No Motor/Sensory Deficits, Normal Mood/Affect, 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 FIM Transfers Therapy Code Descriptions/Definitions Functional [place] Measure: 0=Not Assessed/NA 4=Minimal Assistance 1=Total Assistance 5=Supervision or Setup 2=Maximal Assistance 6=Modified [place] 3=Moderate Assistance 7=Complete IndependenceSCALE: Activities may be completed with or without assistive devices. 7-Pniofsfbyo-qcmqhsl completes the activity by him/herself with no assistance from a helper. 5-Set-up or Clean-up Assistance-helper sets up or cleans up; patient completes activity. [place] assists only prior to or following the activity. 4-Supervision or Touching Assistance-helper provides verbal cues and/or touching/steadying and/or contact guard assistance as patient completes activity. Assistance may be provided throughout the activity or intermittently. 3-Partial/Moderate Assistance-helper does LESS THAN HALF the effort. [place] lifts, holds or supports trunk or limbs, but provides less than half the effort. 2-Substantial/Maximal Assistance-helper does MORE THAN HALF the effort. [place] lifts or holds trunk or limbs and provides more than half the effort. 6-Zvahvuvzm-pdpwnt does ALL the effort. Patient does none of the effort to complete the activity. Or, the assistance of 2 or more helpers is required for the patient to complete the activity. If activity was not attempted, code reason: 7-Patient Refused. 9-Not Applicable-not attempted and the patient did not perform the activity before the current illness, exacerbation or injury. 10-Not Attempted due to Environmental Limitations-(lack of equipment, weather restraints, etc.). 88-Not Attempted due to Medical Conditions or Safety Concerns. Roll Left to Right (QC): 6 Sit to Lying (QC): 6 Sit to Stand (QC): 5 Chair/Ivz-fv-Hrgfv Xfer(QC): 6 Car Transfer (QC): 3 Gait Training Does the Patient Walk?: Yes Distance: 100', 150' Walk 10 feet (QC): 5 Walk 50 ft with 2 Turns(QC): 5 Walk 150 ft (QC): 5 Walking 10ft/uneven surface-QC: 3 Gait Persons Needed: 1 Gait Assistive Device: FWW Wheelchair Training Does the Pt Use a Wheelchair?: No Distance: See PT goals Wheel 50 ft with 2 turns (QC): 4 Wheel 150 ft (QC): 1 Type of Wheelchair: Manual Stair Training #of Steps: 0 1 Step (curb) (QC): 88 4 Steps (QC): 88 12 Steps (QC): 88 Balance Picking up an Object (QC): 4 ADL-Treatment Eating (QC): 6 (Pt. eats crackers at bedside for stomach.) Oral Hygiene (QC): 6 Shower/Bathe Self (QC): 7 (Declines. States that he showered yesterday.) Upper Body Dressing (QC): 5 (set up ) Lower Body Dressing (QC): 4 (SBA) On/Off Footwear (QC): 3 (Min assist) Toileting Hygiene (QC): 4 (CGA when getting on/off toilet. Pt. able to pull down and up his pants and cleanse self after BM.) Toilet Transfer (QC): 4 Assessment/Plan Assessment and Plan Assess & Plan/Chief Complaint A: S/P LTKA due to osteoarthritis Dr Price 05/05/2022 Weakness Diarrhea COVID recent 3 weeks ago s/p Paxlovid Hypoxia requiring O2 new onset h/o falls HTN Nausea Anxiety Diverticulosis BPH Osteoarthritis Subacute nausea refractory so holding Rifaximin Dehydration requiring 48 hours of IVF RBBB Ileus on xray consulting Dr Pham Crackles on lung exam checking CXR and added IS and Nebs Plan: Pain control Nausea treatment IVF Pain control Aggressive PT OT 05/12/2022: IVF Supportive care 05/13/2022: Monitor closely HLIVF 05/14/2022: KUB Hold Rifaximin 05/15/2022: Check CXR Nebs IS 05/16/2022: Supportive care Use incentive spirometer 05/17/2022: Supportive care Soft diet Incentive spirometer use 05/18/2022: Delay dc to Advance diet (1) History of arthroplasty of right knee (2) Nausea (3) History of COVID-19 (4) Hypoxia AMY GROVES DO May 18, 2022 09:45
--- NOTE | 2022-05-18 09:46 | Occupational Ther Daily Note ---
OT Current Status-Daily Note Subjective Pt up in recliner, agreeable to OT Tx with focus on ADLs. Pt states his knee popped this weekend and he feels like it is now moving better and feels better Mental Status/Objective Patient Orientation: Person, Place, Time, Situation ADL-Treatment Therapy Code Descriptions/Definitions Functional [place] Measure: 0=Not Assessed/NA 4=Minimal Assistance 1=Total Assistance 5=Supervision or Setup 2=Maximal Assistance 6=Modified [place] 3=Moderate Assistance 7=Complete IndependenceSCALE: Activities may be completed with or without assistive devices. 2-Xbzbyzuvxk-wnvofao completes the activity by him/herself with no assistance from a helper. 5-Set-up or Clean-up Assistance-helper sets up or cleans up; patient completes activity. [place] assists only prior to or following the activity. 4-Supervision or Touching Assistance-helper provides verbal cues and/or touching/steadying and/or contact guard assistance as patient completes activity. Assistance may be provided throughout the activity or intermittently. 3-Partial/Moderate Assistance-helper does LESS THAN HALF the effort. [place] lifts, holds or supports trunk or limbs, but provides less than half the effort. 2-Substantial/Maximal Assistance-helper does MORE THAN HALF the effort. [place] lifts or holds trunk or limbs and provides more than half the effort. 3-Uzsiqyiek-xwjypm does ALL the effort. Patient does none of the effort to complete the activity. Or, the assistance of 2 or more helpers is required for the patient to complete the activity. If activity was not attempted, code reason: 7-Patient Refused. 9-Not Applicable-not attempted and the patient did not perform the activity before the current illness, exacerbation or injury. 10-Not Attempted due to Environmental Limitations-(lack of equipment, weather restraints, etc.). 88-Not Attempted due to Medical Conditions or Safety Concerns. Eating (QC): 6 Oral Hygiene (QC): 6 Shower/Bathe Self (QC): 5 Upper Body Dressing (QC): 6 Lower Body Dressing (QC): 4 (SBA in stand) On/Off Footwear: 6 Toileting Hygiene (QC): 6 Toilet Transfer (QC): 6 Other Treatment Pt in recliner, used FWW to gather clothes from closet and then transfer into bathroom onto toilet. Pt completed toileting, showering and dressing, then sat at sink for grooming tasks. Pt returned to recliner for seated rest break. Pt then used FWW to perform functional mobility to therapy gym, SBA. OT tx focused on increasing BUE strength and activity tolerance. Pt completed arm bike, x20 mins, 20 Watt resistance, 1 rest break. He then removed beads from moderate resistance (green) theraputty. Post tx, pt seated in therapy gym with PT present , all needs met. Education OT Patient Education: Correct positioning, Energy conservation, Exercise program, Modified ADL techniques, Progress toward Goal/Update tx plan, Purpose of tx/functional activities, Rehab process Teaching Recipient: Patient Teaching Methods: Demonstration, Discussion Response to Teaching: Verbalize Understanding, Return Demonstration BIMS CAM BIMS Expression of Ideas and Wants: Without Difficulty Understanding Verbal Content: Usually Understands (Pt SILETZ TRIBE, sometimes requires repetition) Brief Interview/Mental Status: Yes IRF RENITA BIMS: IRF RENITA BIMS Response (Comments) Value Repitition of Three Words Three 3 Recalls Socks Yes, No Cue Required 2 Recalls Blue Yes, No Cue Required 2 Recalls Bed Yes, After Cueing 1 Year Correct 3 Month Accurate Within 5 Days 2 Day Correct 1 Total 14 Should Staff Asses. Mental St[address] No CAM Mental Status Change/Baseline: 0 Inattention: 0 Disorganized thinkin Altered level of consciousness: 0 OT Short Term Goals Short Term Goals Time Frame: May 25, 2022 Upper body dressin Lower body dressin Putting on/taking off footwear: 5 OT Care Home Goals Custom Furrier Goals Time Frame: Jun 05, 2022 Acute change in mental status: 0 Inattention: 0 Disorganized thinkin Altered level of consciousness: 0 Eating (QC): 6 (met) Oral Hygiene (QC): 6 (met) Toileting Hygiene (QC): 6 (met) Shower/Bathe Self (QC): 5 (met) Upper Body Dressing (QC): 6 (met) Lower Body Dressing (QC): 6 On/Off Footwear (QC): 6 (met) Additional Goals: 1-Demonstrate ADL Tasks, 2-Verbalize Understanding, 3- ImproveStrength/Christophe 1=Demonstrate adherence to instructed precautions during ADL tasks. 2=Patient will verbalize/demonstrate understanding of assistive devices/modifications for ADL. 3=Patient will improve strength/tolerance for activity to enable patient to perform ADL's. OT Education/Plan Problem List/Assessment Assessment: Decreased Activ Tolerance, Decreased UE Strength, Impaired I ADL's Discharge Recommendations Plan/Recommendations: Continue POC Treatment Plan/Plan of Care Patient would benefit from OT for education, treatment and training to promote independence in ADL's, mobility, safety and/or upper extremity function for ADL's. Plan of Care: ADL Retraining, Functional Mobility, Group Exercise/Act as Ind, UE Funct Exercise/Act Treatment Duration: Jun 05, 2022 Frequency: At least 5 of 7 days/Wk (IRF) Estimated Hrs Per Day: 1.5 hours per day Agreement: Yes Rehab Potential: Fair Time Start Time: 09:00 Stop Time: 10:30 DATE: May 18, 2022 Total Time Billed (hr/min): 90 Billed Treatment Time 1, ADL 4 (60'), EX (20'), FA (10') THOMAS STEWART OT May 18, 2022 09:46
--- NOTE | 2022-05-18 11:06 | Progress Note - Surgery ---
Subjective Time Seen by a Provider: 10:23 Subjective/Events-last exam Pt seen and examined, he was actually at his physical therapy appointment in the gym. He states he had a good BM and wants to eat more. Denied abdominal pain and bloating. Review of Systems General: No Chills, No Night Sweats Pulmonary: No Dyspnea, No Cough Cardiovascular: No: Chest Pain, Palpitations Gastrointestinal: No: Nausea, Vomiting, Abdominal Pain Objective Exam Vital Signs Date Time Temp Pulse Resp B/P (MAP) Pulse Ox O2 Delivery O2 Flow Rate FiO2 05/18/22 09:00 Room Air 05/18/22 07:23 36.2 92 22 126/70 (88) 95 Room Air 05/17/22 21:39 96 Room Air 05/17/22 20:55 36.8 94 20 122/60 (80) 92 Room Air 05/17/22 20:03 96 Room Air 05/17/22 20:00 Room Air I & O 05/18/22 07:00 Intake Total 2110 ml Output Total 700 ml Balance 1410 ml Capillary Refill : General Appearance: No Apparent Distress, Obese HEENT: PERRL/EOMI Respiratory: Lungs Clear, No Accessory Muscle Use, No Respiratory Distress, Crackles Cardiovascular: Regular Rate, Rhythm, No Murmur Gastrointestinal: non tender, soft, distended (may just be his normal abdomen) Neurologic/Psychiatric: Alert, Oriented x3, Abnormal Gait, Motor Weakness Results Lab Microbiology 05/14/22 Fecal Leukocyte Stain - Final, Complete Assessment/Plan Assessment/Plan Assessment/Plan Constipation - Ileus most likely vs obstruction vs Coden's Plan Patient states he feels better today and had a "decent" BM. Will continue conservative management at this time, recommend increase fluids. I will sign off, but I am available by call at any time if patient's clinical status begins to worsen. ABDELRAHMAN HUYNH DO May 18, 2022 11:06
--- NOTE | 2022-05-18 11:54 | Physical Therapy Daily Note ---
PT Daily Note-Current Subjective Patient in gym with OT pre-tx, reports pain in L knee but did not score, agrees to PT. Pain Section J - Health Conditions 1. Rarely or not at all 2. Occasionally 3. Frequently 4. Almost constantly 8. Unable to answer Pain Effect on Sleep: 2 Pain Interference with Therapy: 3 Pain Interference w/Day-to-Day: 3 Appearance Patient in recliner post-tx with nurse call, phone, tray, all needs met. Mental Status Patient Orientation: Person, Place, Situation Transfers SCALE: Activities may be completed with or without assistive devices. 2-Zfhmgryilm-izmwbta completes the activity by him/herself with no assistance from a helper. 5-Set-up or Clean-up Assistance-helper sets up or cleans up; patient completes activity. [place] assists only prior to or following the activity. 4-Supervision or Touching Assistance-helper provides verbal cues and/or touching/steadying and/or contact guard assistance as patient completes activity. Assistance may be provided throughout the activity or intermittently. 3-Partial/Moderate Assistance-helper does LESS THAN HALF the effort. [place] lifts, holds or supports trunk or limbs, but provides less than half the effort. 2-Substantial/Maximal Assistance-helper does MORE THAN HALF the effort. [place] lifts or holds trunk or limbs and provides more than half the effort. 1-Zohdrjisi-cwsjwt does ALL the effort. Patient does none of the effort to complete the activity. Or, the assistance of 2 or more helpers is required for the patient to complete the activity. If activity was not attempted, code reason: 7-Patient Refused. 9-Not Applicable-not attempted and the patient did not perform the activity before the current illness, exacerbation or injury. 10-Not Attempted due to Environmental Limitations-(lack of equipment, weather restraints, etc.). 88-Not Attempted due to Medical Conditions or Safety Concerns. Roll Left & Right (QC): 4 (SBA) Sit to Lying (QC): 4 (SBA) Lying to Sitting/Side of Bed(Q: 3 (giving patient a hand to pull up on) Sit to Stand (QC): 4 (SBA) Chair/Ivb-kw-Mxhjx Xfer(QC): 4 (SBA) Toilet Transfer (QC): 4 (SBA) Car Transfer (QC): 4 (SBA) Weight Bearing Right Lower Extremity: Right Full Weight Bearing Left Lower Extremity: Left Weight Bearing/Tolerated Gait Training Does the Patient Walk?: Yes Distance: 150', 50' Walk 10 feet (QC): 4 Walk 50 ft with 2 Turns(QC): 4 Walk 150 ft (QC): 4 Walking 10ft/uneven surface-QC: 4 Gait Persons Needed: 1 Gait Assistive Device: FWW SBA with ambulation, patient walks with a step-to pattern, sometimes gets the R foot slightly through the L foot. Patient walks with a moderate limp, decreased foot clearance, decreased step length, but is steady. Wheelchair Training Wheel 50 ft with 2 turns (QC): 9 Wheel 150 ft (QC): 9 Stair Training Stair Training: Handrails/: 2 handrails #of Steps: 8 1 Step (curb) (QC): 4 4 Steps (QC): 4 12 Steps (QC): 88 Stairs: Pattern: Step to CGA Balance Picking up an Object (QC): 4 (SBA using arm power and recovery supervisor) Exercises Supine Ex: Quad Set (20 x2 sets), Heel Slides (20 x2 sets), Straight leg raise (20) Seated Therapy Exercises: Ankle pumps, Long arc quads, Hip flexion Seated Reps: 20 Standing: Side steps, Step-ups Standing Reps: 20 In supine, Heel Digs 3sec hold x20 reps NuStep Minutes: 10 NuStep Workload: 6 Treatments Ambulation, LE Strengthening, Stairs, Transfers, Rolling Left<->Right, Sit<- >Lying, Tinetti 18/28 High Fall Risk Assessment Current Status: Fair Progress Patient walks with significant L knee flexion and a step-to pattern. L leg buckled slightly once during forward step-ups. Patient still has moderate pain during activity and weight bearing. Patient still lacking 20 degrees of extension and has 85 degrees of flexion in L knee. PT Machine Tool Dresser Goals Machine Tool Dresser Goals PT Usp Goals Time Frame: Jun 20, 2022 Roll Left & Right (QC): 6 Sit to Lying (QC): 6 Lying-Sitting on Side/Bed(QC): 6 Sit to Stand (QC): 6 Chair/Uyo-in-Zzmpf Xfer(QC): 6 Toilet Transfer (QC): 6 Car Transfer (QC): 6 Does the Patient Walk: Yes Walk 10 feet (QC): 6 Walk 50ft with 2 Turns (QC): 6 Walk 150 ft (QC): 4 Walking 10ft on Uneven Surface: 6 1 Step (curb) (QC): 3 4 Steps (QC): 3 12 Steps (QC): 3 Picking up an Object (QC): 6 Does the Pt use WC or Scooter?: Yes Wheel 50 feet with 2 turns (QC: 6 Type: Manual Wheel 150 feet: 6 Type: Manual PT Plan Problem List Problem List: Activity Tolerance, Functional Strength, Safety, Balance, Gait, Transfer, Bed Mobility, ROM Treatment/Plan Treatment Plan: Continue Plan of Care Treatment Plan: Bed Mobility, Education, Functional Activity Christophe, Functional Strength, Group Therapy, Gait, Safety, Therapeutic Exercise, Transfers Treatment Duration: Jun 20, 2022 Frequency: At least 5 of 7 days/Wk (IRF) Estimated Hrs Per Day: 1.5 hours per day Patient and/or Family Agrees t: Yes Safety Risks/Education Patient Education: Gait Training, Transfer Techniques, Steps, Correct Positioning, Safety Issues Teaching Recipient: Patient Teaching Methods: Demonstration, Discussion Response to Teaching: Reinforcement Needed Time Time In: 1030 Time Out: 1200 DATE: May 18, 2022 Total Billed Treatment Time: 90 Total Billed Treatment 1 visit FA x3 45' EX x3 45' RUSTY DOMINGUEZ PT May 18, 2022 11:54
[2022-05-18] MEDS: ASPIRIN E.C. 81 MG (ECOTRIN) TAB PO SCH (17:18)
[2022-05-18 20:30] VITALS: BP 110/58
[2022-05-18] MEDS: doxAzosin 2 MG (CARDURA) TAB PO SCH (21:31)
[2022-05-18] MEDS: NIACIN 500 MG TABLET PO SCH (21:31)
[2022-05-18] MEDS: FENOFIBRATE 134 MG (LOFIBRA) CAPSULE PO SCH (21:31)
[2022-05-19] MEDS: RT-ALBUTEROL SULF 2.5 MG/3 ML PRE-MIX VIAL INH SCH ×3 (04:11→20:26)
--- NOTE | 2022-05-19 05:35 | PM&R Progress Note ---
Subjective HPI/CC On Admission Date Seen by Provider: May 19, 2022 Time Seen by Provider: 08:45 Subjective/Events-last exam 05/19/2022: Pt is doing really well KUB shows no evidence of any stool, just gas Pain is pretty well with pain medication 05/18/2022: Pt is doing a lot better Pt feels better Zofran will be changed to prn White count is normal 05/17/2022: Patient doing a little better Slow recovery Suppository resulted in just loose watery stools Feels bloated Soft diet tolerated Lungs are improved with crackles Chest x-ray remains with atelectasis 05/16/2022: Very slow recovery Less nausea Had 4 watery stools but having a lot of gas Stool culture no growth today 05/15/2022: Reports he feels better and less nausea but only taking in CLD due to early ileus on xray I consulted Dr Pham and we conferred Labs stable Lungs have rales so will check CXR and order IS and Nebs BID 05/14/2022: Nausea continues Rifaximin will be held due to nausea high incidence on med profile Zofran scheduled Abd xray reveals ileus Monitor closely 05/13/2022: Doing better COVID was 04/25/22 Nausea persists so will continue scheduled Zofran 05/12/2022: Doing better Slow recovery IVF will continue Zofran scheduled has been helpful BP ok O2 not needed anymore hgb 10.5 Review of Systems General: Fatigue, Malaise Objective Exam Vital Signs Vital Signs Date Time Temp Pulse Resp B/P (MAP) Pulse Ox O2 Delivery O2 Flow Rate FiO2 05/19/22 21:30 95 Room Air 05/19/22 20:00 36.5 85 20 116/60 (78) Capillary Refill : General Appearance: No Apparent Distress, WD/WN, Chronically ill, Obese HEENT: PERRL/EOMI, Normal ENT Inspection, Pharynx Normal Neck: Full Range of Motion, Normal Inspection, Non Tender, Supple, Carotid Bruit Respiratory: Chest Non Tender, No Accessory Muscle Use, No Respiratory Distress, Crackles Cardiovascular: Regular Rate, Rhythm, No Edema, No Gallop, No JVD, No Murmur, Normal Peripheral Pulses Gastrointestinal: Normal Bowel Sounds, No Organomegaly, No Pulsatile Mass, Non Tender, Soft Back: Normal Inspection, No CVA Tenderness, No Vertebral Tenderness Extremity: Normal Capillary Refill, Normal Inspection, Normal Range of Motion (except left leg), Non Tender, No Calf Tenderness, No Pedal Edema Neurologic/Psychiatric: Alert, Oriented x3, No Motor/Sensory Deficits, Normal Mood/Affect, bonding supervisor II-XII Norm as Tested, Abnormal Gait, Motor Weakness Skin: Normal Color, Warm/Dry Lymphatic: No Adenopathy Results/Procedures Lab Patient resulted labs reviewed. FIM Transfers Therapy Code Descriptions/Definitions Functional [place] Measure: 0=Not Assessed/NA 4=Minimal Assistance 1=Total Assistance 5=Supervision or Setup 2=Maximal Assistance 6=Modified [place] 3=Moderate Assistance 7=Complete IndependenceSCALE: Activities may be completed with or without assistive devices. 4-Dwdzbayyxs-diavanz completes the activity by him/herself with no assistance from a helper. 5-Set-up or Clean-up Assistance-helper sets up or cleans up; patient completes a ctivity. [place] assists only prior to or following the activity. 4-Supervision or Touching Assistance-helper provides verbal cues and/or touching/steadying and/or contact guard assistance as patient completes activity. Assistance may be provided throughout the activity or intermittently. 3-Partial/Moderate Assistance-helper does LESS THAN HALF the effort. [place] lifts, holds or supports trunk or limbs, but provides less than half the effort. 2-Substantial/Maximal Assistance-helper does MORE THAN HALF the effort. [place] lifts or holds trunk or limbs and provides more than half the effort. 2-Kpzcfuvwl-bnpzgy does ALL the effort. Patient does none of the effort to complete the activity. Or, the assistance of 2 or more helpers is required for the patient to complete the activity. If activity was not attempted, code reason: 7-Patient Refused. 9-Not Applicable-not attempted and the patient did not perform the activity before the current illness, exacerbation or injury. 10-Not Attempted due to Environmental Limitations-(lack of equipment, weather restraints, etc.). 88-Not Attempted due to Medical Conditions or Safety Concerns. Roll Left to Right (QC): 4 (SBA) Sit to Lying (QC): 4 (SBA) Sit to Stand (QC): 4 (SBA) Chair/Zjn-ve-Jzszl Xfer(QC): 4 (SBA) Car Transfer (QC): 4 (SBA) Gait Training Does the Patient Walk?: Yes Distance: 150', 50' Walk 10 feet (QC): 4 Walk 50 ft with 2 Turns(QC): 4 Walk 150 ft (QC): 4 Walking 10ft/uneven surface-QC: 4 Gait Persons Needed: 1 Gait Assistive Device: FWW Wheelchair Training Does the Pt Use a Wheelchair?: No Distance: See PT goals Wheel 50 ft with 2 turns (QC): 9 Wheel 150 ft (QC): 9 Type of Wheelchair: Manual Stair Training Stair Training: Handrails/: 2 handrails #of Steps: 8 1 Step (curb) (QC): 4 4 Steps (QC): 4 12 Steps (QC): 88 Stairs: Pattern: Step to Balance Picking up an Object (QC): 4 (SBA using arm engineer system administrator) ADL-Treatment Eating (QC): 6 Oral Hygiene (QC): 6 Shower/Bathe Self (QC): 5 Upper Body Dressing (QC): 6 Lower Body Dressing (QC): 4 (SBA in stand) On/Off Footwear (QC): 6 Toileting Hygiene (QC): 6 Toilet Transfer (QC): 6 Assessment/Plan Assessment and Plan Assess & Plan/Chief Complaint A: S/P LTKA due to osteoarthritis Dr Price 05/05/2022 Weakness Diarrhea COVID recent 3 weeks ago s/p Paxlovid Hypoxia requiring O2 new onset h/o falls HTN Nausea Anxiety Diverticulosis BPH Osteoarthritis Subacute nausea refractory so holding Rifaximin Dehydration requiring 48 hours of IVF RBBB Ileus on xray consulting Dr Pham Crackles on lung exam checking CXR and added IS and Nebs Plan: Pain control Nausea treatment IVF Pain control Aggressive PT OT 05/12/2022: IVF Supportive care 05/13/2022: Monitor closely HLIVF 05/14/2022: KUB Hold Rifaximin 05/15/2022: Check CXR Nebs IS 05/16/2022: Supportive care Use incentive spirometer 05/17/2022: Supportive care Soft diet Incentive spirometer use 05/18/2022: Delay dc to Advance diet 05/19/2022: Improved Monitor closely (1) History of arthroplasty of right knee (2) Nausea (3) History of COVID-19 (4) Hypoxia AMY GROVES DO May 19, 2022 05:35
[2022-05-19] MEDS: MULTIVIT W/MINERALS TAB (THERAGRAN M) PO SCH (06:49)
[2022-05-19 07:32] VITALS: BP 118/68
[2022-05-19] MEDS: PANTOPRAZOLE 40 MG (PROTONIX) TAB PO SCH (08:38)
[2022-05-19] MEDS: ACETAMINOPHEN 500 MG TAB (TYLENOL) PO SCH ×2 (08:38→16:58)
[2022-05-19] MEDS: DOCUSATE SODIUM 100 MG (COLACE) CAP PO SCH ×2 (08:38→21:47)
[2022-05-19] MEDS: SENNA W/DOCUSATE (SENOKOT S) TABLET PO SCH ×2 (08:38→21:47)
[2022-05-19] MEDS: ASCORBIC ACID (VIT C) 500 MG TABLET PO SCH (08:38)
[2022-05-19] MEDS: CALCIUM CARB + VIT D 600 MG (CALCARB + D) TAB PO SCH ×2 (08:38→16:58)
[2022-05-19] MEDS: polyethylene glycoL POWDER 17 GM (MIRALAX) PACK PO SCH ×2 (08:38→21:47)
--- NOTE | 2022-05-19 09:44 | Occupational Ther Daily Note ---
OT Current Status-Daily Note Subjective Pt. up in chair. No pain reported. Mental Status/Objective Patient Orientation: Person, Place, Time, Situation ADL-Treatment Therapy Code Descriptions/Definitions Functional [place] Measure: 0=Not Assessed/NA 4=Minimal Assistance 1=Total Assistance 5=Supervision or Setup 2=Maximal Assistance 6=Modified [place] 3=Moderate Assistance 7=Complete IndependenceSCALE: Activities may be completed with or without assistive devices. 8-Ipquwzjlxg-kpglpiz completes the activity by him/herself with no assistance from a helper. 5-Set-up or Clean-up Assistance-helper sets up or cleans up; patient completes activity. [place] assists only prior to or following the activity. 4-Supervision or Touching Assistance-helper provides verbal cues and/or touching/steadying and/or contact guard assistance as patient completes activity. Assistance may be provided throughout the activity or intermittently. 3-Partial/Moderate Assistance-helper does LESS THAN HALF the effort. [place] lifts, holds or supports trunk or limbs, but provides less than half the effort. 2-Substantial/Maximal Assistance-helper does MORE THAN HALF the effort. [place] lifts or holds trunk or limbs and provides more than half the effort. 7-Vxxztxciy-sabaqv does ALL the effort. Patient does none of the effort to complete the activity. Or, the assistance of 2 or more helpers is required for the patient to complete the activity. If activity was not attempted, code reason: 7-Patient Refused. 9-Not Applicable-not attempted and the patient did not perform the activity before the current illness, exacerbation or injury. 10-Not Attempted due to Environmental Limitations-(lack of equipment, weather restraints, etc.). 88-Not Attempted due to Medical Conditions or Safety Concerns. Eating (QC): 6 (Empty tray at bedside. Pt. reports he doesn't have an appetite but he ate.) Oral Hygiene (QC): 7 Shower/Bathe Self (QC): 7 Toileting Hygiene (QC): 7 Toilet Transfer (QC): 7 Other Treatment Pt. up in chair. He is already dressed, including shoes, and states that he put on his own clothing. It looks like he slept in them. He states that he took a shower yesterday, and will take one tomorrow because he will be leaving on . Pt. reports that he is constipated and is working on having a BM. Pt. does not want to try toileting at this time. He agrees to treatment. Pt. transfers sit-stand with SBA using walker. He ambulates to therapy gym with CGA. Pt. completes 15 minutes on arm bike at min resistance, with several brief rest breaks. He is working on bilateral UE strength and overall endurance. After this, pt. dons 1lb. wrist weights, and completes therapy peg task with alternating UE to work on overall strength. About 3/4 way through this task pt. reports that he feels "shaky." OT offers him water and takes BP. It is 120/59. Reported to nursing and pt. states he feels better. Doffed UE weights and completed therapy peg activity. Worked on fine motor overall strength and coordination with therapy clothespins, as well as nut/bolt activity. Tolerated these well. OT showed pt. both walker basket and walker tray to work on independence with carrying items at home, as he will have a walker for awhile. He verbalizes understanding. Ambulates back to room with SBA/CGA and denies having to use toilet. Pt. up in chair, and OT brings in yellow theraband. Demonstrated to pt and encouraged pt. to work on exercises on his own in room. All needs met. Education OT Patient Education: Correct positioning, Exercise program, Home exercise program, Modified ADL techniques, Progress toward Goal/Update tx plan, Purpose of tx/functional activities, Reviewed precautions, Rehab process, Transfer techniques, Use of adapted equipment Teaching Recipient: Patient Teaching Methods: Demonstration, Discussion Response to Teaching: Verbalize Understanding, Return Demonstration OT Short Term Goals Short Term Goals Time Frame: May 25, 2022 Upper body dressin Lower body dressin Putting on/taking off footwear: 5 OT Ebd Special Education Teacher Goals Ebd Special Education Teacher Goals Time Frame: Jun 05, 2022 Acute change in mental status: 0 Inattention: 0 Disorganized thinkin Altered level of consciousness: 0 Eating (QC): 6 (met) Oral Hygiene (QC): 6 (met) Toileting Hygiene (QC): 6 (met) Shower/Bathe Self (QC): 5 (met) Upper Body Dressing (QC): 6 (met) Lower Body Dressing (QC): 6 On/Off Footwear (QC): 6 (met) Additional Goals: 1-Demonstrate ADL Tasks, 2-Verbalize Understanding, 3- ImproveStrength/Christophe 1=Demonstrate adherence to instructed precautions during ADL tasks. 2=Patient will verbalize/demonstrate understanding of assistive maycol bernardo/modifications for ADL. 3=Patient will improve strength/tolerance for activity to enable patient to perform ADL's. OT Education/Plan Problem List/Assessment Assessment: Decreased Activ Tolerance, Impaired Self-Care Skills Discharge Recommendations Plan/Recommendations: Continue POC Therapy Discharge Recommendati: Post Acute OT Treatment Plan/Plan of Care Treatment,Training & Education: Yes Patient would benefit from OT for education, treatment and training to promote independence in ADL's, mobility, safety and/or upper extremity function for ADL's. Plan of Care: ADL Retraining, Functional Mobility, Group Exercise/Act as Ind, UE Funct Exercise/Act Treatment Duration: Jun 05, 2022 Frequency: At least 5 of 7 days/Wk (IRF) Estimated Hrs Per Day: 1.5 hours per day Agreement: Yes Rehab Potential: Fair Time Start Time: 08:00 Stop Time: 09:30 DATE: May 19, 2022 Total Time Billed (hr/min): 90 Billed Treatment Time 1, Ex x 15minutes, FA x 75minutes ROCIO SPAULDING OT May 19, 2022 09:44
--- NOTE | 2022-05-19 10:50 | Physical Therapy Daily Note ---
PT Daily Note-Current Subjective Patient in recliner pre-tx, reports pain in L knee but did not rate, agrees to PT. Pain Section J - Health Conditions 1. Rarely or not at all 2. Occasionally 3. Frequently 4. Almost constantly 8. Unable to answer Pain Effect on Sleep: 2 Pain Interference with Therapy: 3 Pain Interference w/Day-to-Day: 3 Appearance Patient in recliner post-tx with nurse call, phone, tray, all needs met. Mental Status Patient Orientation: Person, Place, Situation Transfers SCALE: Activities may be completed with or without assistive devices. 9-Gcxedbpmdt-pclnikp completes the activity by him/herself with no assistance from a helper. 5-Set-up or Clean-up Assistance-helper sets up or cleans up; patient completes activity. [place] assists only prior to or following the activity. 4-Supervision or Touching Assistance-helper provides verbal cues and/or touching/steadying and/or contact guard assistance as patient completes activity. Assistance may be provided throughout the activity or intermittently. 3-Partial/Moderate Assistance-helper does LESS THAN HALF the effort. [place] lifts, holds or supports trunk or limbs, but provides less than half the effort. 2-Substantial/Maximal Assistance-helper does MORE THAN HALF the effort. [place] lifts or holds trunk or limbs and provides more than half the effort. 3-Mtxajbdsg-akajoz does ALL the effort. Patient does none of the effort to complete the activity. Or, the assistance of 2 or more helpers is required for the patient to complete the activity. If activity was not attempted, code reason: 7-Patient Refused. 9-Not Applicable-not attempted and the patient did not perform the activity before the current illness, exacerbation or injury. 10-Not Attempted due to Environmental Limitations-(lack of equipment, weather restraints, etc.). 88-Not Attempted due to Medical Conditions or Safety Concerns. Roll Left & Right (QC): 4 (SBA) Sit to Lying (QC): 3 (Min A) Lying to Sitting/Side of Bed(Q: 3 (Min A) Sit to Stand (QC): 4 (SBA) Chair/Kux-ro-Nnzpf Xfer(QC): 4 (SBA) Weight Bearing Right Lower Extremity: Right Full Weight Bearing Left Lower Extremity: Left Weight Bearing/Tolerated Gait Training Does the Patient Walk?: Yes Distance: 100', 200' Walk 10 feet (QC): 4 Walk 50 ft with 2 Turns(QC): 4 Walk 150 ft (QC): 4 Gait Persons Needed: 1 Gait Assistive Device: FWW SBA, Patient walking with better step length, gait speed, and foot clearance today, but gait is still pretty antalgic and has a significant limp. Exercises Supine Ex: Quad Set, Heel Slides, Straight leg raise Supine Reps: 20 Seated Therapy Exercises: Ankle pumps, Long arc quads Seated Reps: 20 Standing: Side steps, Step-ups Standing Reps: 15 TKE in standing with blue Tband x20 reps In supine, foam pad under L foot with 2lbs ankle weight on knee for 4mins for knee extension stretch NuStep Minutes: 15 NuStep Workload: 6 Treatments Ambulation, LE Strengthening, Stretching, AROM Assessment Current Status: Fair Progress Patient more fatigued today, needed more breaks and has dizziness with supine<- >sit PT Long-Term Goals Long-Term Goals PT Long-Term Goals Time Frame: Jun 20, 2022 Roll Left & Right (QC): 6 Sit to Lying (QC): 6 Lying-Sitting on Side/Bed(QC): 6 Sit to Stand (QC): 6 Chair/Jiw-vj-Mloxe Xfer(QC): 6 Toilet Transfer (QC): 6 Car Transfer (QC): 6 Does the Patient Walk: Yes Walk 10 feet (QC): 6 Walk 50ft with 2 Turns (QC): 6 Walk 150 ft (QC): 4 Walking 10ft on Uneven Surface: 6 1 Step (curb) (QC): 3 4 Steps (QC): 3 12 Steps (QC): 3 Picking up an Object (QC): 6 Does the Pt use WC or Scooter?: Yes Wheel 50 feet with 2 turns (QC: 6 Type: Manual Wheel 150 feet: 6 Type: Manual PT Plan Problem List Problem List: Activity Tolerance, Functional Strength, Safety, Balance, Gait, Transfer, Bed Mobility, ROM Treatment/Plan Treatment Plan: Continue Plan of Care Treatment Plan: Bed Mobility, Education, Functional Activity Christophe, Functional Strength, Group Therapy, Gait, Safety, Therapeutic Exercise, Transfers Treatment Duration: Jun 20, 2022 Frequency: At least 5 of 7 days/Wk (IRF) Estimated Hrs Per Day: 1.5 hours per day Patient and/or Family Agrees t: Yes Safety Risks/Education Patient Education: Gait Training, Transfer Techniques, Steps, Correct Positioning, Safety Issues Teaching Recipient: Patient Teaching Methods: Demonstration, Discussion Response to Teaching: Reinforcement Needed Time Time In: 0930 Time Out: 1100 DATE: May 19, 2022 Total Billed Treatment Time: 90 Total Billed Treatment 1 visit FA x3 45' EX x3 45' RUSTY DOMINGUEZ PT May 19, 2022 10:49
[2022-05-19] MEDS: ASPIRIN E.C. 81 MG (ECOTRIN) TAB PO SCH (16:58)
[2022-05-19 20:00] VITALS: BP 116/60
[2022-05-19] MEDS: FENOFIBRATE 134 MG (LOFIBRA) CAPSULE PO SCH (21:47)
[2022-05-19] MEDS: doxAzosin 2 MG (CARDURA) TAB PO SCH (21:47)
[2022-05-19] MEDS: NIACIN 500 MG TABLET PO SCH (21:48)
--- NOTE | 2022-05-20 06:23 | PM&R Progress Note ---
Subjective HPI/CC On Admission Date Seen by Provider: May 20, 2022 Time Seen by Provider: 09:00 Subjective/Events-last exam 05/20/2022: Pt is doing pretty well Had a formed stool today No pain Lungs are CTAB today Discharge planned for tomorrow 05/19/2022: Pt is doing really well KUB shows no evidence of any stool, just gas Pain is pretty well with pain medication 05/18/2022: Pt is doing a lot better Pt feels better Zofran will be changed to prn White count is normal 05/17/2022: Patient doing a little better Slow recovery Suppository resulted in just loose watery stools Feels bloated Soft diet tolerated Lungs are improved with crackles Chest x-ray remains with atelectasis 05/16/2022: Very slow recovery Less nausea Had 4 watery stools but having a lot of gas Stool culture no growth today 05/15/2022: Reports he feels better and less nausea but only taking in CLD due to early ileus on xray I consulted Dr Pham and we conferred Labs stable Lungs have rales so will check CXR and order IS and Nebs BID 05/14/2022: Nausea continues Rifaximin will be held due to nausea high incidence on med profile Zofran scheduled Abd xray reveals ileus Monitor closely 05/13/2022: Doing better COVID was 04/25/22 Nausea persists so will continue scheduled Zofran 05/12/2022: Doing better Slow recovery IVF will continue Zofran scheduled has been helpful BP ok O2 not needed anymore hgb 10.5 Review of Systems General: Fatigue, Malaise Neurological: Weakness, Incoordination Objective Exam Vital Signs Vital Signs Date Time Temp Pulse Resp B/P (MAP) Pulse Ox O2 Delivery O2 Flow Rate FiO2 05/20/22 21:30 95 Room Air 05/20/22 20:15 36.5 92 20 121/59 (79) Capillary Refill : General Appearance: No Apparent Distress, WD/WN, Chronically ill, Obese HEENT: PERRL/EOMI, Normal ENT Inspection, Pharynx Normal Neck: Full Range of Motion, Normal Inspection, Non Tender, Supple, Carotid Br uit Respiratory: Chest Non Tender, No Accessory Muscle Use, No Respiratory Distress, Crackles Cardiovascular: Regular Rate, Rhythm, No Edema, No Gallop, No JVD, No Murmur, Normal Peripheral Pulses Gastrointestinal: Normal Bowel Sounds, No Organomegaly, No Pulsatile Mass, Non Tender, Soft Back: Normal Inspection, No CVA Tenderness, No Vertebral Tenderness Extremity: Normal Capillary Refill, Normal Inspection, Normal Range of Motion (except left leg), Non Tender, No Calf Tenderness, No Pedal Edema Neurologic/Psychiatric: Alert, Oriented x3, No Motor/Sensory Deficits, Normal Mood/Affect, counter sales representative II-XII Norm as Tested, Abnormal Gait, Motor Weakness Skin: Normal Color, Warm/Dry Lymphatic: No Adenopathy Results/Procedures Lab Patient resulted labs reviewed. FIM Transfers Therapy Code Descriptions/Definitions Functional [place] Measure: 0=Not Assessed/NA 4=Minimal Assistance 1=Total Assistance 5=Supervision or Setup 2=Maximal Assistance 6=Modified [place] 3=Moderate Assistance 7=Complete IndependenceSCALE: Activities may be completed with or without assistive devices. 1-Rgppnhvipf-aqqdhuv completes the activity by him/herself with no assistance from a helper. 5-Set-up or Clean-up Assistance-helper sets up or cleans up; patient completes activity. [place] assists only prior to or following the activity. 4-Supervision or Touching Assistance-helper provides verbal cues and/or touching/steadying and/or contact guard assistance as patient completes activity. Assistance may be provided throughout the activity or intermittently. 3-Partial/Moderate Assistance-helper does LESS THAN HALF the effort. [place] lifts, holds or supports trunk or limbs, but provides less than half the effort. 2-Substantial/Maximal Assistance-helper does MORE THAN HALF the effort. [place] lifts or holds trunk or limbs and provides more than half the effort. 9-Xkpsftsyh-bpyrtg does ALL the effort. Patient does none of the effort to complete the activity. Or, the assistance of 2 or more helpers is required for the patient to complete the activity. If activity was not attempted, code reason: 7-Patient Refused. 9-Not Applicable-not attempted and the patient did not perform the activity before the current illness, exacerbation or injury. 10-Not Attempted due to Environmental Limitations-(lack of equipment, weather restraints, etc.). 88-Not Attempted due to Medical Conditions or Safety Concerns. Roll Left to Right (QC): 4 (SBA) Sit to Lying (QC): 3 (Min A) Sit to Stand (QC): 4 (SBA) Chair/Oum-tv-Muyae Xfer(QC): 4 (SBA) Car Transfer (QC): 4 (SBA) Gait Training Does the Patient Walk?: Yes Distance: 100', 200' Walk 10 feet (QC): 4 Walk 50 ft with 2 Turns(QC): 4 Walk 150 ft (QC): 4 Walking 10ft/uneven surface-QC: 4 Gait Persons Needed: 1 Gait Assistive Device: FWW Wheelchair Training Does the Pt Use a Wheelchair?: No Distance: See PT goals Wheel 50 ft with 2 turns (QC): 9 Wheel 150 ft (QC): 9 Type of Wheelchair: Manual Stair Training Stair Training: Handrails/: 2 handrails #of Steps: 8 1 Step (curb) (QC): 4 4 Steps (QC): 4 12 Steps (QC): 88 Stairs: Pattern: Step to Balance Picking up an Object (QC): 4 (SBA using arm principal electrical engineer) ADL-Treatment Eating (QC): 6 (Empty tray at bedside. Pt. reports he doesn't have an appetite but he ate.) Oral Hygiene (QC): 7 Shower/Bathe Self (QC): 7 Upper Body Dressing (QC): 6 Lower Body Dressing (QC): 4 (SBA in stand) On/Off Footwear (QC): 6 Toileting Hygiene (QC): 7 Toilet Transfer (QC): 7 Assessment/Plan Assessment and Plan Assess & Plan/Chief Complaint A: S/P LTKA due to osteoarthritis Dr Price 05/05/2022 Weakness Diarrhea COVID recent 3 weeks ago s/p Paxlovid Hypoxia requiring O2 new onset h/o falls HTN Nausea Anxiety Diverticulosis BPH Osteoarthritis Subacute nausea refractory so holding Rifaximin Dehydration requiring 48 hours of IVF RBBB Ileus on xray consulting Dr Pham Crackles on lung exam checking CXR and added IS and Nebs Plan: Pain control Nausea treatment IVF Pain control Aggressive PT OT 05/12/2022: IVF Supportive care 05/13/2022: Monitor closely HLIVF 05/14/2022: KUB Hold Rifaximin 05/15/2022: Check CXR Nebs IS 05/16/2022: Supportive care Use incentive spirometer 05/17/2022: Supportive care Soft diet Incentive spirometer use 05/18/2022: Delay dc to Advance diet 05/19/2022: Improved Monitor closely 05/20/2022: DC tomorrow Dramatic improvement (1) History of arthroplasty of right knee (2) Nausea (3) History of COVID-19 (4) Hypoxia AMY GROVES DO May 20, 2022 06:23
[2022-05-20] MEDS: MULTIVIT W/MINERALS TAB (THERAGRAN M) PO SCH (06:53)
[2022-05-20 07:15] VITALS: BP 124/72
[2022-05-20] MEDS: RT-ALBUTEROL SULF 2.5 MG/3 ML PRE-MIX VIAL INH SCH ×2 (07:57→21:01)
[2022-05-20] MEDS: polyethylene glycoL POWDER 17 GM (MIRALAX) PACK PO SCH ×3 (08:06→21:30)
[2022-05-20] MEDS: PANTOPRAZOLE 40 MG (PROTONIX) TAB PO SCH (08:06)
[2022-05-20] MEDS: ASCORBIC ACID (VIT C) 500 MG TABLET PO SCH (08:06)
[2022-05-20] MEDS: ACETAMINOPHEN 500 MG TAB (TYLENOL) PO SCH ×3 (08:08→16:58)
[2022-05-20] MEDS: DOCUSATE SODIUM 100 MG (COLACE) CAP PO SCH ×2 (08:08→21:30)
[2022-05-20] MEDS: SENNA W/DOCUSATE (SENOKOT S) TABLET PO SCH ×2 (08:08→21:30)
[2022-05-20] MEDS: CALCIUM CARB + VIT D 600 MG (CALCARB + D) TAB PO SCH ×2 (08:08→16:58)
--- NOTE | 2022-05-20 08:38 | Occupational Ther Daily Note ---
OT Current Status-Daily Note Subjective Pt rates pain 5/10 in L knee. Pt agreeable to OT Tx. Mental Status/Objective Patient Orientation: Person, Place, Time, Situation ADL-Treatment Therapy Code Descriptions/Definitions Functional Helix Measure: 0=Not Assessed/NA 4=Minimal Assistance 1=Total Assistance 5=Supervision or Setup 2=Maximal Assistance 6=Modified Helix 3=Moderate Assistance 7=Complete IndependenceSCALE: Activities may be completed with or without assistive devices. 4-Qysroyisdi-mbphlmj completes the activity by him/herself with no assistance from a helper. 5-Set-up or Clean-up Assistance-helper sets up or cleans up; patient completes activity. [place] assists only prior to or following the activity. 4-Supervision or Touching Assistance-helper provides verbal cues and/or touching/steadying and/or contact guard assistance as patient completes activity. Assistance may be provided throughout the activity or intermittently. 3-Partial/Moderate Assistance-helper does LESS THAN HALF the effort. [place] lifts, holds or supports trunk or limbs, but provides less than half the effort. 2-Substantial/Maximal Assistance-helper does MORE THAN HALF the effort. [place] lifts or holds trunk or limbs and provides more than half the effort. 0-Dmdpmgjby-dprtkc does ALL the effort. Patient does none of the effort to complete the activity. Or, the assistance of 2 or more helpers is required for the patient to complete the activity. If activity was not attempted, code reason: 7-Patient Refused. 9-Not Applicable-not attempted and the patient did not perform the activity before the current illness, exacerbation or injury. 10-Not Attempted due to Environmental Limitations-(lack of equipment, weather restraints, etc.). 88-Not Attempted due to Medical Conditions or Safety Concerns. Eating (QC): 6 Oral Hygiene (QC): 6 Shower/Bathe Self (QC): 5 Upper Body Dressing (QC): 6 Lower Body Dressing (QC): 6 On/Off Footwear: 6 Toileting Hygiene (QC): 6 Toilet Transfer (QC): 6 Other Treatment Pt in recliner, agreeable to OT tx. Pt used FWW to gather clothes, complete toileting, showering, dressing, and oral care, then returned to recliner for se ated rest break. Pt then used FWW to perform functional mobility to therapy gym. In order to increase BUE Strength and activity tolerance, pt completed x20 mins on arm bike, 20 Watt resistance, 1 rest break. Pt returned to his room using FWW, transferring to recliner. Post tx, pt in recliner, call light in reach and all needs met. Education OT Patient Education: Correct positioning, Modified ADL techniques, Progress toward Goal/Update tx plan, Purpose of tx/functional activities, Rehab process Teaching Recipient: Patient Teaching Methods: Discussion Response to Teaching: Verbalize Understanding BIMS CAM BIMS Expression of Ideas and Wants: Without Difficulty Understanding Verbal Content: Usually Understands (pt [place], requires occassional repetition of instruction/question) IRF RENITA BIMS: IRF RENITA BIMS Response (Comments) Value Repitition of Three Words Three 3 Recalls Socks Yes, No Cue Required 2 Recalls Blue Yes, No Cue Required 2 Recalls Bed Yes, No Cue Required 2 Year Correct 3 Month Accurate Within 5 Days 2 Day Correct 1 Total 15 Should Staff Asses. Mental [address] No CAM Mental Status Change/Baseline: 0 Inattention: 0 Disorganized thinkin Altered level of consciousness: 0 OT Short Term Goals Short Term Goals Time Frame: May 25, 2022 Upper body dressin Lower body dressin Putting on/taking off footwear: 5 OT Software Quality Tester Goals Group Home Goals Time Frame: Jun 05, 2022 Acute change in mental status: 0 Inattention: 0 Disorganized thinkin Altered level of consciousness: 0 Eating (QC): 6 (met) Oral Hygiene (QC): 6 (met) Toileting Hygiene (QC): 6 (met) Shower/Bathe Self (QC): 5 (met) Upper Body Dressing (QC): 6 (met) Lower Body Dressing (QC): 6 (met) On/Off Footwear (QC): 6 (met) Additional Goals: 1-Demonstrate ADL Tasks, 2-Verbalize Understanding, 3- ImproveStrength/Christophe 1=Demonstrate adherence to instructed precautions during ADL tasks. 2=Patient will verbalize/demonstrate understanding of assistive devices/modifications for ADL. 3=Patient will improve strength/tolerance for activity to enable patient to perform ADL's. OT Education/Plan Problem List/Assessment Assessment: Decreased Activ Tolerance, Decreased UE Strength, Impaired I ADL's Discharge Recommendations Plan/Recommendations: Continue POC Treatment Plan/Plan of Care Patient would benefit from OT for education, treatment and training to promote independence in ADL's, mobility, safety and/or upper extremity function for ADL's. Plan of Care: ADL Retraining, Functional Mobility, Group Exercise/Act as Ind, UE Funct Exercise/Act Treatment Duration: Jun 05, 2022 Frequency: At least 5 of 7 days/Wk (IRF) Estimated Hrs Per Day: 1.5 hours per day Agreement: Yes Rehab Potential: Fair Time Start Time: 07:45 Stop Time: 09:15 DATE: May 20, 2022 Total Time Billed (hr/min): 90 Billed Treatment Time 1, ADL 5 (70'), EX (20') THOMAS STEWART OT May 20, 2022 08:38
--- NOTE | 2022-05-20 10:46 | Physical Therapy Daily Note ---
PT Daily Note-Current Subjective Pt found sitting in chair upon entry. Agreed to PT. Does not rate pain or report a change in pain. Pain Numeric Pain Scale: 0-No Pain Section J - Health Conditions 1. Rarely or not at all 2. Occasionally 3. Frequently 4. Almost constantly 8. Unable to answer Pain Effect on Sleep: 2 Pain Interference with Therapy: 3 Pain Interference w/Day-to-Day: 3 Mental Status Patient Orientation: Person, Time, Situation Transfers SCALE: Activities may be completed with or without assistive devices. 7-Ciklxuagwa-vgdxnhq completes the activity by him/herself with no assistance from a helper. 5-Set-up or Clean-up Assistance-helper sets up or cleans up; patient completes activity. [place] assists only prior to or following the activity. 4-Supervision or Touching Assistance-helper provides verbal cues and/or touching/steadying and/or contact guard assistance as patient completes activity. Assistance may be provided throughout the activity or intermittently. 3-Partial/Moderate Assistance-helper does LESS THAN HALF the effort. [place] lifts, holds or supports trunk or limbs, but provides less than half the effort. 2-Substantial/Maximal Assistance-helper does MORE THAN HALF the effort. [place] lifts or holds trunk or limbs and provides more than half the effort. 2-Mzeocxmay-wxurpm does ALL the effort. Patient does none of the effort to complete the activity. Or, the assistance of 2 or more helpers is required for the patient to complete the activity. If activity was not attempted, code reason: 7-Patient Refused. 9-Not Applicable-not attempted and the patient did not perform the activity before the current illness, exacerbation or injury. 10-Not Attempted due to Environmental Limitations-(lack of equipment, weather restraints, etc.). 88-Not Attempted due to Medical Conditions or Safety Concerns. Roll Left & Right (QC): 6 Sit to Lying (QC): 6 Lying to Sitting/Side of Bed(Q: 6 Sit to Stand (QC): 6 Chair/Rcj-gi-Jamlm Xfer(QC): 6 Toilet Transfer (QC): 6 Car Transfer (QC): 6 Pt independent /c all trfs. Weight Bearing Right Lower Extremity: Right Full Weight Bearing Left Lower Extremity: Left Weight Bearing/Tolerated Gait Training Does the Patient Walk?: Yes Distance: 50, 100, 150 Walk 10 feet (QC): 6 Walk 50 ft with 2 Turns(QC): 6 Walk 150 ft (QC): 5 Walking 10ft/uneven surface-QC: 6 Gait Persons Needed: 1 Gait Assistive Device: FWW Pt is SBA /c gait training over 100ft. Independent /c gait training up to 100ft. Amb. 300ft total. Wheelchair Training Does the Pt Use a Wheelchair?: No Stair Training Stair Training: Handrails/: 2 handrails #of Steps: 12 1 Step (curb) (QC): 6 4 Steps (QC): 6 12 Steps (QC): 5 SBA /c more than 4 steps. Independent up to 4 steps. Balance Picking up an Object (QC): 6 Exercises Supine Ex: Quad Set, Heel Slides, Short Arc Quads, Straight leg raise Supine Reps: 15 Seated Therapy Exercises: Ankle pumps, Long arc quads Seated Reps: 20 Standing: Hamstring curls, 3 way Ex=Flex, Abd, Ext, Step-ups Standing Reps: 10 Pt completed 4min stretch in supine /c 4lb AW over L knee. Completed 2min standing on foam pad and 10x TKE /c BTB. Assessment Current Status: Good Progress Pt demonstrates ability to be independent /c most activities and exercises. Re ports SOB and weakness during exercise. Continue to progress pt as tolerated to improve endurance and functional ability. PT Employment Security Officer Goals Employment Security Officer Goals PT Correction Goals Time Frame: Jun 20, 2022 Roll Left & Right (QC): 6 Sit to Lying (QC): 6 Lying-Sitting on Side/Bed(QC): 6 Sit to Stand (QC): 6 Chair/Cez-lx-Mdcwf Xfer(QC): 6 Toilet Transfer (QC): 6 Car Transfer (QC): 6 Does the Patient Walk: Yes Walk 10 feet (QC): 6 Walk 50ft with 2 Turns (QC): 6 Walk 150 ft (QC): 4 Walking 10ft on Uneven Surface: 6 1 Step (curb) (QC): 3 4 Steps (QC): 3 12 Steps (QC): 3 Picking up an Object (QC): 6 Does the Pt use WC or Scooter?: Yes Wheel 50 feet with 2 turns (QC: 6 Type: Manual Wheel 150 feet: 6 Type: Manual PT Plan Treatment/Plan Treatment Plan: Continue Plan of Care Treatment Plan: Bed Mobility, Education, Functional Activity Christophe, Functional Strength, Group Therapy, Gait, Safety, Therapeutic Exercise, Transfers Treatment Duration: Jun 20, 2022 Frequency: At least 5 of 7 days/Wk (IRF) Estimated Hrs Per Day: 1.5 hours per day Patient and/or Family Agrees t: Yes Time Time In: 914 Time Out: 1045 DATE: May 20, 2022 Total Billed Treatment Time: 90 Total Billed Treatment 1 visit GT 1x FA 2x EX 3x ELIE ESTRELLA PTA May 20, 2022 10:46
[2022-05-20] MEDS ORDERED: IBUP-2185 PO (12:38)
[2022-05-20] MEDS ORDERED: IBUP1CAP11 PO (12:38)
--- NOTE | 2022-05-20 13:27 | Physical Therapy Daily Note ---
PT Daily Note-Current Subjective Pt found seated upon entry. Agreed to PT. Reports that he is tired from earlier PT Tx. Does not rate pain or report any change in pain. Pain Numeric Pain Scale: 0-No Pain Section J - Health Conditions 1. Rarely or not at all 2. Occasionally 3. Frequently 4. Almost constantly 8. Unable to answer Pain Effect on Sleep: 2 Pain Interference with Therapy: 3 Pain Interference w/Day-to-Day: 3 Mental Status Patient Orientation: Person, Time, Situation Transfers SCALE: Activities may be completed with or without assistive devices. 0-Gqtsvjpyyb-ddgqatx completes the activity by him/herself with no assistance from a helper. 5-Set-up or Clean-up Assistance-helper sets up or cleans up; patient completes activity. [place] assists only prior to or following the activity. 4-Supervision or Touching Assistance-helper provides verbal cues and/or touching/steadying and/or contact guard assistance as patient completes activity. Assistance may be provided throughout the activity or intermittently. 3-Partial/Moderate Assistance-helper does LESS THAN HALF the effort. [place] lifts, holds or supports trunk or limbs, but provides less than half the effort. 2-Substantial/Maximal Assistance-helper does MORE THAN HALF the effort. [place] lifts or holds trunk or limbs and provides more than half the effort. 9-Qoarvyrmr-yjvlsl does ALL the effort. Patient does none of the effort to complete the activity. Or, the assistance of 2 or more helpers is required for the patient to complete the activity. If activity was not attempted, code reason: 7-Patient Refused. 9-Not Applicable-not attempted and the patient did not perform the activity before the current illness, exacerbation or injury. 10-Not Attempted due to Environmental Limitations-(lack of equipment, weather restraints, etc.). 88-Not Attempted due to Medical Conditions or Safety Concerns. Sit to Stand (QC): 4 Pt is SBA /c sit<->stand trfs. Weight Bearing Right Lower Extremity: Right Full Weight Bearing Left Lower Extremity: Left Weight Bearing/Tolerated Gait Training Distance: 150, 150 Walk 10 feet (QC): 4 Walk 50 ft with 2 Turns(QC): 4 Walk 150 ft (QC): 4 Gait Persons Needed: 1 Gait Assistive Device: FWW Pt SBA /c gait training. 300ft of total gait training. Wheelchair Training Does the Pt Use a Wheelchair?: No Exercises Standing: Hamstring curls, 3 way Ex=Flex, Abd, Ext Standing Reps: 15 Pt completed all standing exercises /c no report of increased pain. Demonstrates signs of fatigue near end of set. Assessment Current Status: Good Progress Pt demonstrates signs of fatigue at end of exercises and gait training. Continues to self-correct body mechanics on occasion. Continue /c POC as tolerated to improve gait pattern and endurance. PT Usp Goals Usp Goals PT Usp Goals Time Frame: Jun 20, 2022 Roll Left & Right (QC): 6 Sit to Lying (QC): 6 Lying-Sitting on Side/Bed(QC): 6 Sit to Stand (QC): 6 Chair/Thi-bi-Ezand Xfer(QC): 6 Toilet Transfer (QC): 6 Car Transfer (QC): 6 Does the Patient Walk: Yes Walk 10 feet (QC): 6 Walk 50ft with 2 Turns (QC): 6 Walk 150 ft (QC): 4 Walking 10ft on Uneven Surface: 6 1 Step (curb) (QC): 3 4 Steps (QC): 3 12 Steps (QC): 3 Picking up an Object (QC): 6 Does the Pt use WC or Scooter?: Yes Wheel 50 feet with 2 turns (QC: 6 Type: Manual Wheel 150 feet: 6 Type: Manual PT Plan Treatment/Plan Treatment Plan: Continue Plan of Care Treatment Plan: Bed Mobility, Education, Functional Activity Christophe, Functional Strength, Group Therapy, Gait, Safety, Therapeutic Exercise, Transfers Treatment Duration: Jun 20, 2022 Frequency: At least 5 of 7 days/Wk (IRF) Estimated Hrs Per Day: 1.5 hours per day Patient and/or Family Agrees t: Yes Time Time In: 1300 Time Out: 1320 DATE: May 20, 2022 Total Billed Treatment Time: 20 Total Billed Treatment 1 visit EX 1x ELIE ESTRELLA TECH BRAZER TESTER May 20, 2022 13:27
[2022-05-20] MEDS: ASPIRIN E.C. 81 MG (ECOTRIN) TAB PO SCH (16:58)
[2022-05-20 20:15] VITALS: BP 121/59
[2022-05-20] MEDS ORDERED: PANT40TA52 PO (20:57)
[2022-05-20] MEDS ORDERED: OXC5T PO (20:57)
--- NOTE | 2022-05-20 20:58 | D/C HH Face to Face Order ---
D/C HH Face to Face Orders Reconcile Patient Problems Problems Reviewed?: Yes Instructions for Patient HH Patient Instructions/FollowUp: PCP 1 week Physician to follow Patient: Mon Discharge Diet for Home: No Restrictions Patient Problems: Recent COVID Knee replacement Patient Data-Allergies,Ht & Wt Patient Allergies: Coded Allergies: Penicillins (Verified Allergy, Unknown, 05/11/22) Sulfa (Sulfonamide Antibiotics) (Verified Allergy, Unknown, 05/11/22) allopurinol (Verified Allergy, Unknown, 05/11/22) ibuprofen (Verified Allergy, Unknown, 05/11/22) prednisone (Verified Allergy, Unknown, 05/11/22) Home Health Need/Face to Face Date of Face to Face: May 20, 2022 Clinical Findings: Generalized weakness and fatigue, Muscle weakness, Unsteady gait I have seen Pt ibxy-sx-xfyf: Yes Discharged To: Home Diagnosis/Conditions: Knee replacement Patient is Homebound due to: [place] fall risk due to instabilty, Muscle weakness Homebound Status Due to the above stated illness, injury or surgical procedure (medical condition or diagnosis) and associated clinical findings, the patient is homebound because of his/her inability to leave home except with aid of a supportive device and/or person AND leaving the home requires a considerable and taxing effort or is medically contraindicated. Pt req the following assistanc: [facility] Home Health Nursing Orders Home Health Services Order: Nursing Services, Chemist Organic-Evaluate & Treat, Physical Therapy-Evaluate & Treat Certify Stmt I certify that this patient is under my care and that I, a nurse practitioner or a physician; a wet process assistant head miller working with me, had a face to face encounter that - meets the physician face to face encounter requirements with this patient as dated. AMY GROVES DO May 20, 2022 20:58
[2022-05-20] MEDS: doxAzosin 2 MG (CARDURA) TAB PO SCH (21:29)
[2022-05-20] MEDS: NIACIN 500 MG TABLET PO SCH (21:29)
[2022-05-20] MEDS: FENOFIBRATE 134 MG (LOFIBRA) CAPSULE PO SCH (21:29)
[2022-05-21] MEDS: ACETAMINOPHEN 500 MG TAB (TYLENOL) PO SCH ×2 (00:10→08:10)
--- NOTE | 2022-05-21 06:02 | Discharge Summary ---
Diagnosis/Chief Complaint Date of Admission May 11, 2022 at 13:15 Date of Discharge Discharge Date: May 21, 2022 Discharge Diagnosis A: S/P LTKA due to osteoarthritis Dr Price 05/05/2022 Weakness Diarrhea COVID recent 3 weeks ago s/p Paxlovid Hypoxia requiring O2 new onset h/o falls HTN Nausea Anxiety Diverticulosis BPH Osteoarthritis Subacute nausea refractory so holding Rifaximin Dehydration requiring 48 hours of IVF RBBB Ileus on xray consulting Dr Pham Crackles on lung exam checking CXR and added IS and Nebs Plan: Pain control Nausea treatment IVF Pain control Aggressive PT OT 05/12/2022: IVF Supportive care 05/13/2022: Monitor closely HLIVF 05/14/2022: KUB Hold Rifaximin 05/15/2022: Check CXR Nebs IS 05/16/2022: Supportive care Use incentive spirometer 05/17/2022: Supportive care Soft diet Incentive spirometer use 05/18/2022: Delay dc to Advance diet 05/19/2022: Improved Monitor closely 05/20/2022: DC tomorrow Dramatic improvement (1) History of arthroplasty of right knee (2) Nausea (3) History of COVID-19 (4) Hypoxia AMY GROVES DO Discharge Summary Discharge Physical Examination Allergies: Coded Allergies: Penicillins (Verified Allergy, Unknown, 05/11/22) Sulfa (Sulfonamide Antibiotics) (Verified Allergy, Unknown, 05/11/22) allopurinol (Verified Allergy, Unknown, 05/11/22) ibuprofen (Verified Allergy, Unknown, 05/11/22) prednisone (Verified Allergy, Unknown, 05/11/22) Vitals & I&Os Vital Signs Date Time Temp Pulse Resp B/P (MAP) Pulse Ox O2 Delivery O2 Flow Rate FiO2 05/21/22 10:06 36.6 91 18 106/68 94 Room Air General Appearance: Alert, Oriented X3, Cooperative Respiratory: Clear to Auscultation Cardiovascular: Regular Rate Neuro: Normal Gait Psych/Mental Status: Mental Status NL Hospital Course Was the Problem List Reviewed?: Yes Lengthy hospital course following slow recovery from knee replacement which was done shortly after COVID infection. He did have an issue with return of bowel function prompting general surgery consult which ultimately resolved before discharge. Patient participated in all therapy. He is weaned off oxygen. Pain was controlled with pain medication. Overall he dramatically improved for last 2 days and was discharged improved condition. Labs (last 24 hrs) Laboratory Tests 05/11/22 13:15: Lab Scanned Report Referred Lab Report 05/12/22 05:15: White Blood Count 4.2L, Red Blood Count 3.47L, Hemoglobin 10.5L, Hematocrit 30L, Mean Corpuscular Volume 88, Mean Corpuscular Hemoglobin 30, Mean Corpuscular Hemoglobin Concent 35, Red Cell Distribution Width 13.2, Platelet Count 224, Mean Platelet Volume 8.9L, Immature Granulocyte % (Auto) 4, Neutrophils (%) (Auto) 64, Lymphocytes (%) (Auto) 14, Monocytes (%) (Auto) 12, Eosinophils (%) (Auto) 5, Basophils (%) (Auto) 1, Neutrophils # (Auto) 2.7, Lymphocytes # (Auto) 0.6L, Monocytes # (Auto) 0.5, Eosinophils # (Auto) 0.2, Basophils # (Auto) 0.0, Immature Granulocyte # (Auto) 0.2H, Sodium Level 136, Potassium Level 3.7, Chloride Level 102, Carbon Dioxide Level 21, Anion Gap 13, Blood Urea Nitrogen 19H, Creatinine 1.07, Estimat Glomerular Filtration Rate 68, BUN/Creatinine Rat io 18, Glucose Level 81, Calcium Level 8.3L, Corrected Calcium 9.2, Total Bilirubin 0.7, Aspartate Amino Transf (AST/SGOT) 19, Alanine Aminotransferase (ALT/SGPT) 14, Alkaline Phosphatase 40, Total Protein 5.0L, Albumin 2.9L 05/14/22 11:20: Stool Occult Blood Immunoassay POSITIVEH 05/15/22 06:10: White Blood Count 4.1L, Red Blood Count 3.45L, Hemoglobin 10.5L, Hematocrit 31L, Mean Corpuscular Volume 90, Mean Corpuscular Hemoglobin 30, Mean Corpuscular Hemoglobin Concent 34, Red Cell Distribution Width 13.9, Platelet Count 242, Mean Platelet Volume 8.8L, Immature Granulocyte % (Auto) 3, Neutrophils (%) (Auto) 65, Lymphocytes (%) (Auto) 17, Monocytes (%) (Auto) 10, Eosinophils (%) (Auto) 5, Basophils (%) (Auto) 1, Neutrophils # (Auto) 2.7, Lymphocytes # (Auto) 0.7L, Monocytes # (Auto) 0.4, Eosinophils # (Auto) 0.2, Basophils # (Auto) 0.0, Immature Granulocyte # (Auto) 0.1, Sodium Level 138, Potassium Level 3.7, Chloride Level 104, Carbon Dioxide Level 23, Anion Gap 11, Blood Urea Nitrogen 12, Creatinine 1.06, Estimat Glomerular Filtration Rate 69, BUN/Creatinine Ratio 11, Glucose Level 86, Calcium Level 8.6, Corrected Calcium 9.4, Total Bilirubin 0.6, Aspartate Amino Transf (AST/SGOT) 22, Alanine Aminotransferase (ALT/SGPT) 17, Alkaline Phosphatase 37L, Total Protein 5.4L, Albumin 3.0L 05/17/22 07:00: White Blood Count 5.0, Red Blood Count 3.55L, Hemoglobin 10.7L, Hematocrit 32L, Mean Corpuscular Volume 89, Mean Corpuscular Hemoglobin 30, Mean Corpuscular Hemoglobin Concent 34, Red Cell Distribution Width 14.0, Platelet Count 235, Mean Platelet Volume 8.6L, Immature Granulocyte % (Auto) 2, Neutrophils (%) (Auto) 70, Lymphocytes (%) (Auto) 15, Monocytes (%) (Auto) 8, Eosinophils (%) (Auto) 6, Basophils (%) (Auto) 0, Neutrophils # (Auto) 3.5, Lymphocytes # (Auto) 0.7L, Monocytes # (Auto) 0.4, Eosinophils # (Auto) 0.3, Basophils # (Auto) 0.0, Immature Granulocyte # (Auto) 0.1, Sodium Level 139, Potassium Level 3.5L, Chloride Level 103, Carbon Dioxide Level 24, Anion Gap 12, Blood Urea Nitrogen 10, Creatinine 1.22, Estimat Glomerular Filtration Rate 58, BUN/Creatinine Ratio 8, Glucose Level 80, Calcium Level 8.8, Corrected Calcium 9.5, Total Bilirubin 0.7, Aspartate Amino Transf (AST/SGOT) 18, Alanine Aminotransferase (ALT/SGPT) 15, Alkaline Phosphatase 40, Total Protein 5.4L, Albumin 3.1L, Procalcitonin 0.04 Microbiology 05/14/22 Fecal Leukocyte Stain - Final, Complete Pending Labs Microbiology Date/Time Source Procedure Growth Status 05/14/22 11:20 Stool Fecal Leukocyte Stain - Final Complete 05/14/22 11:20 Stool C. difficile GDH Antigen & Toxins - Final Complete 05/14/22 11:20 Stool Culture - Final Culture In Progress Presumptive Usual [place] Complete Laboratory Tests 05/11/22 13:15: Lab Scanned Report Referred Lab Report 05/12/22 05:15: White Blood Count 4.2, Red Blood Count 3.47, Hemoglobin 10.5, Hematocrit 30, Mean Corpuscular Volume 88, Mean Corpuscular Hemoglobin 30, Mean Corpuscular Hemoglobin Concent 35, Red Cell Distribution Width 13.2, Platelet Count 224, Mean Platelet Volume 8.9, Immature Granulocyte % (Auto) 4, Neutrophils (%) (Auto) 64, Lymphocytes (%) (Auto) 14, Monocytes (%) (Auto) 12, Eosinophils (%) (Auto) 5, Basophils (%) (Auto) 1, Neutrophils # (Auto) 2.7, Lymphocytes # (Auto) 0.6, Monocytes # (Auto) 0.5, Eosinophils # (Auto) 0.2, Basophils # (Auto) 0.0, Immature Granulocyte # (Auto) 0.2, Sodium Level 136, Potassium Level 3.7, Chloride Level 102, Carbon Dioxide Level 21, Anion Gap 13, Blood Urea Nitrogen 19, Creatinine 1.07, Estimat Glomerular Filtration Rate 68, BUN/Creatinine Ratio 18, Glucose Level 81, Calcium Level 8.3, Corrected Calcium 9.2, Total Bilirubin 0.7, Aspartate Amino Transf (AST/SGOT) 19, Alanine Aminotransferase (ALT/SGPT) 14, Alkaline Phosphatase 40, Total Protein 5.0, Albumin 2.9 05/14/22 11:20: Stool Occult Blood Immunoassay POSITIVE 05/15/22 06:10: White Blood Count 4.1, Red Blood Count 3.45, Hemoglobin 10.5, Hematocrit 31, Mean Corpuscular Volume 90, Mean Corpuscular Hemoglobin 30, Mean Corpuscular Hemoglobin Concent 34, Red Cell Distribution Width 13.9, Platelet Count 242, Mean Platelet Volume 8.8, Immature Granulocyte % (Auto) 3, Neutrophils (%) (Auto) 65, Lymphocytes (%) (Auto) 17, Monocytes (%) (Auto) 10, Eosinophils (%) (Auto) 5, Basophils (%) (Auto) 1, Neutrophils # (Auto) 2.7, Lymphocytes # (Auto) 0.7, Monocytes # (Auto) 0.4, Eosinophils # (Auto) 0.2, Basophils # (Auto) 0.0, Immature Granulocyte # (Auto) 0.1, Sodium Level 138, Potassium Level 3.7, Chloride Level 104, Carbon Dioxide Level 23, Anion Gap 11, Blood Urea Nitrogen 12, Creatinine 1.06, Estimat Glomerular Filtration Rate 69, BUN/Creatinine Ratio 11, Glucose Level 86, Calcium Level 8.6, Corrected Calcium 9.4, Total Bilirubin 0.6, Aspartate Amino Transf (AST/SGOT) 22, Alanine Aminotransferase (ALT/SGPT) 17, Alkaline Phosphatase 37, Total Protein 5.4, Albumin 3.0 05/17/22 07:00: White Blood Count 5.0, Red Blood Count 3.55, Hemoglobin 10.7, Hematocrit 32, Mean Corpuscular Volume 89, Mean Corpuscular Hemoglobin 30, Mean Corpuscular Hemoglobin Concent 34, Red Cell Distribution Width 14.0, Platelet Count 235, Mean Platelet Volume 8.6, Immature Granulocyte % (Auto) 2, Neutrophils (%) (Auto) 70, Lymphocytes (%) (Auto) 15, Monocytes (%) (Auto) 8, Eosinophils (%) (Auto) 6, Basophils (%) (Auto) 0, Neutrophils # (Auto) 3.5, Lymphocytes # (Auto) 0.7, Monocytes # (Auto) 0.4, Eosinophils # (Auto) 0.3, Basophils # (Auto) 0.0, Immature Granulocyte # (Auto) 0.1, Sodium Level 139, Potassium Level 3.5, Chloride Level 103, Carbon Dioxide Level 24, Anion Gap 12, Blood Urea Nitrogen 10, Creatinine 1.22, Estimat Glomerular Filtration Rate 58, BUN/Creatinine Ratio 8, Glucose Level 80, Calcium Level 8.8, Corrected Calcium 9.5, Total Bilirubin 0.7, Aspartate Amino Transf (AST/SGOT) 18, Alanine Aminotransferase (ALT/SGPT) 15, Alkaline Phosphatase 40, Total Protein 5.4, Albumin 3.1, Procalcitonin 0.04 Discharge Home Medications: Active Scripts Active Pantoprazole Sodium 40 Mg Tablet.dr 40 Mg PO DAILY Oxyir Tablet (Oxycodone HCl) 5 Mg Tab 5-10 Mg PO Q6H PRN Reported Doxazosin Mesylate 2 Mg Tablet 2 Mg PO HS Sernivo (Betamethasone Dipropionate) 0.05 % Cades.pump 1 Applic TP DAILY PRN Vitamin C (Ascorbate Calcium) 500 Mg Tablet 500 Mg PO DAILY Fenofibrate (Fenofibrate Nanocrystallized) 145 Mg Tablet 145 Mg PO HS Niacin 500 Mg Tablet 500 Mg PO HS Osteo Bi-Flex Tablet (Glucosamine/D3/Boswellia Cindy) 1,500 Mg-400 Unit-100 Mg Tablet 1 Each PO DAILY Diclofenac Sodium 1 % Gel..gram. 2 Gm TP QID PRN Melatonin 5 Mg Tablet 5 Mg PO HS PRN Diazepam 5 Mg Tablet 5 Mg PO DAILY PRN Calcium 600 + Vit D 800 Tab (Calcium Carbonate/Vitamin D3) 600 Mg Calcium-20 Mcg (800 Unit) Tablet 1 Each PO BID Aspirin EC (Aspirin) 325 Mg Tablet.dr 325 Mg PO HS Multivitamin with Minerals Tab (Multivit-Min/Ferrous Fumarate) 15 Mg Iron Tablet 1 Ea PO DAILY Tylenol Extra Strength (Acetaminophen) 500 Mg Tablet 1,000 Mg PO Q8H Instructions to patient/family Please see electronic discharge instructions given to patient. Diagnosis/Problems Diagnosis/Problems (1) History of arthroplasty of right knee (2) Nausea (3) History of COVID-19 (4) Hypoxia AMY GROVES DO May 21, 2022 06:02
[2022-05-21] MEDS: MULTIVIT W/MINERALS TAB (THERAGRAN M) PO SCH (06:45)
[2022-05-21 07:40] VITALS: BP 106/68
[2022-05-21] MEDS: RT-ALBUTEROL SULF 2.5 MG/3 ML PRE-MIX VIAL INH SCH (07:43)
[2022-05-21] MEDS: DOCUSATE SODIUM 100 MG (COLACE) CAP PO SCH (08:10)
[2022-05-21] MEDS: CALCIUM CARB + VIT D 600 MG (CALCARB + D) TAB PO SCH (08:10)
[2022-05-21] MEDS: PANTOPRAZOLE 40 MG (PROTONIX) TAB PO SCH (08:10)
[2022-05-21] MEDS: polyethylene glycoL POWDER 17 GM (MIRALAX) PACK PO SCH (08:10)
[2022-05-21] MEDS: SENNA W/DOCUSATE (SENOKOT S) TABLET PO SCH (08:10)
[2022-05-21] MEDS: ASCORBIC ACID (VIT C) 500 MG TABLET PO SCH (08:10)
[2022-05-21 10:06] VITALS: BP 106/68
--- NOTE | 2022-05-21 10:11 | Therapy Team Discharge Summary ---
Therapy Discharge Summary Discharge Recommendations Date of Discharge Physical Therapy Roll Left to Right (QC): 6 Sit to Lying (QC): 6 Lying to Sitting/Side of Bed(Q: 6 Sit to Stand (QC): 4 Chair/Pat-cw-Kfokg Xfer(QC): 6 Toilet Transfer (QC): 4 Car Transfer (QC): 6 Does the Patient Walk: Yes Mode of Locomotion: Walk Anticipated Mode of Locomotion: Walk Walk 10 feet (QC): 4 Walk 50 ft with 2 Turns(QC): 4 Walk 150 ft (QC): 4 Walking 10ft on uneven surface: 6 Distance: See PT goals Gait Assistive Device: FWW Does the Pt Use a Wheelchair: No Wheelchair Distance: See PT goals Wheel 50 ft with 2 turns (QC): 9 Wheel 150 ft (QC): 9 Type of Wheelchair: Manual #of Steps: 12 1 Step (curb) (QC): 6 4 Steps (QC): 6 12 Steps (QC): 5 Balance Sitting Static: Fair Balance Sitting Dynamic: Fair Balance-Standing Static: Poor Picking up an Object (QC): 6 Occupational Therapy Pt admitted to [facility] s/p L TKA. At [facility], pt was independent with ADLS and function al mobility, no AD. Upon initial evaluation, pt was independent with oral care, required set up with eating and UE dressing, min A showering, and CGA with LE dressing, toileting, and footwear. OT tx focused on increasing BUE strength and activity tolerance, and increasing safety and independence with ADLS and functional mobility. Pt made good progress, attaining all LTGs. No further AE/DME recommendations at this time. Pt scheduled to d/c home on this date, d/c from OT. Decreased Activ Tolerance, Decreased UE Strength, Impaired I ADL's Eating (QC): 6 Oral Hygiene (QC): 6 Shower/Bathe Self (QC): 5 Upper Body Dressing (QC): 6 Lower Body Dressing (QC): 6 On/Off Footwear (QC): 6 Toileting Hygiene (QC): 6 PT Chcf Goals Chcf Goals PT Chcf Goals Time Frame: Jun 20, 2022 Roll Left to Right (QC): 6 Sit to Lying (QC): 6 Lying-Sitting on Side/Bed(QC): 6 Sit to Stand (QC): 6 Chair/Rya-ej-Bnsbd Xfer(QC): 6 Toilet/Commode Transfer (QC): 6 Car Transfer (QC): 6 Does the Patient Walk: Yes Walk 10 feet (QC): 6 Walk 10ft-Uneven Surface(QC): 6 Walk 50ft with 2 Turns (QC): 6 Walk 150 ft (QC): 4 Does the Pt use WC or Scooter?: Yes Wheel 50 feet with 2 turns (QC: 6 Type: Manual Wheel 150 feet: 6 Type: Manual 1 Step (curb) (QC): 3 4 Steps (QC): 3 12 Steps (QC): 3 Picking up an Object (QC): 6 OT Clerical Grader Goals Clerical Grader Goals Time Frame: Jun 05, 2022 Acute change in mental status: 0 Inattention: 0 Disorganized thinkin Altered level of consciousness: 0 Eating (QC): 6 (met) Oral Hygiene (QC): 6 (met) Toileting Hygiene (QC): 6 (met) Shower/Bathe Self (QC): 5 (met) Upper Body Dressing (QC): 6 (met) Lower Body Dressing (QC): 6 (met) On/Off Footwear (QC): 6 (met) Additional Goals: 1-Demonstrate ADL Tasks, 2-Verbalize Understanding, 3- ImproveStrength/Christophe 1=Demonstrate adherence to instructed precautions during ADL tasks. 2=Patient will verbalize/demonstrate understanding of assistive devices/modifications for ADL. 3=Patient will improve strength/tolerance for activity to enable patient to perform ADL's. THOMAS STEWART OT May 21, 2022 10:11
--- NOTE | 2022-05-22 13:41 | Therapy Team Discharge Summary ---
Therapy Discharge Summary Discharge Recommendations Date of Discharge May 21, 2022 at 10:14 Physical Therapy Patient came to rehab s/p Left TKA. Upon evaluation patient performed rolling and supine <-> sit with min/mod assist, sit <-> stand and transfers min/mod assist, car transfer min/mod assist, ambulated 20' with a rolling walker with min/mod assist (including 10' over an uneven surface), propelled a manual WC 50' with SBA, and picked up an object from the floor with CGA/SBA. Patient has been performing bed mobility and transfer training, balance and endurance training, functional strengthening, stair training, gait training, and education. Patient has made good progress and has met all of his mcc goals. Now, patient performs rolling and supine <-> sit with independence, sit <-> stand and transfers with independence, car transfer independent, ambulates 150' with a rolling walker with setup (but 50' with at least 2 turns with independence as well as 10' over an uneven surface), can go up and down 12 steps using 2 handrails with setup (but independent with 4 steps), and can lemon picker an object from the floor using a forest patrolman with independence. Patient has been discharged from this facility and will be discharged from PT at this time. Roll Left to Right (QC): 6 Sit to Lying (QC): 6 Lying to Sitting/Side of Bed(Q: 6 Sit to Stand (QC): 4 Chair/Zxc-sc-Lgyfj Xfer(QC): 6 Toilet Transfer (QC): 4 Car Transfer (QC): 6 Does the Patient Walk: Yes Mode of Locomotion: Walk Anticipated Mode of Locomotion: Walk Walk 10 feet (QC): 4 Walk 50 ft with 2 Turns(QC): 4 Walk 150 ft (QC): 4 Walking 10ft on uneven surface: 6 Distance: See PT goals Gait Assistive Device: FWW Does the Pt Use a Wheelchair: No Wheelchair Distance: See PT goals Wheel 50 ft with 2 turns (QC): 9 Wheel 150 ft (QC): 9 Type of Wheelchair: Manual #of Steps: 12 1 Step (curb) (QC): 6 4 Steps (QC): 6 12 Steps (QC): 5 Balance Sitting Static: Fair Balance Sitting Dynamic: Fair Balance-Standing Static: Poor Picking up an Object (QC): 6 Occupational Therapy Decreased Activ Tolerance, Decreased UE Strength, Impaired I ADL's Eating (QC): 6 Oral Hygiene (QC): 6 Shower/Bathe Self (QC): 5 Upper Body Dressing (QC): 6 Lower Body Dressing (QC): 6 On/Off Footwear (QC): 6 Toileting Hygiene (QC): 6 PT Correction Goals Accessories Repairer Goals PT Accessories Repairer Goals Time Frame: Jun 20, 2022 Roll Left to Right (QC): 6 Sit to Lying (QC): 6 Lying-Sitting on Side/Bed(QC): 6 Sit to Stand (QC): 6 Chair/Xxf-gl-Tzvfb Xfer(QC): 6 Toilet/Commode Transfer (QC): 6 Car Transfer (QC): 6 Does the Patient Walk: Yes Walk 10 feet (QC): 6 Walk 10ft-Uneven Surface(QC): 6 Walk 50ft with 2 Turns (QC): 6 Walk 150 ft (QC): 4 Does the Pt use WC or Scooter?: Yes Wheel 50 feet with 2 turns (QC: 6 Type: Manual Wheel 150 feet: 6 Type: Manual 1 Step (curb) (QC): 3 4 Steps (QC): 3 12 Steps (QC): 3 Picking up an Object (QC): 6 OT Correction Goals Correction Goals Time Frame: Jun 05, 2022 Acute change in mental status: 0 Inattention: 0 Disorganized thinkin Altered level of consciousness: 0 Eating (QC): 6 (met) Oral Hygiene (QC): 6 (met) Toileting Hygiene (QC): 6 (met) Shower/Bathe Self (QC): 5 (met) Upper Body Dressing (QC): 6 (met) Lower Body Dressing (QC): 6 (met) On/Off Footwear (QC): 6 (met) Additional Goals: 1-Demonstrate ADL Tasks, 2-Verbalize Understanding, 3- ImproveStrength/Christophe 1=Demonstrate adherence to instructed precautions during ADL tasks. 2=Patient will verbalize/demonstrate understanding of assistive devices/modifications for ADL. 3=Patient will improve strength/tolerance for activity to enable patient to perform ADL's. RUSTY DOMINGUEZ PT May 22, 2022 13:41
== END 2022-05-21 10:14 | disposition home health service (06) | DRG 560 ==
PROVIDERS: ADMIT Internal Medicine; ATTEND Internal Medicine
DX: Z47.1 Aftercare following joint replacement surgery (principal); J98.11 Atelectasis; K56.7 Ileus, unspecified; K59.00 Constipation, unspecified; R53.1 Weakness; Z96.612 Presence of left artificial shoulder joint; U09.9 Post COVID-19 condition, unspecified; R11.0 Nausea; I10 Essential (primary) hypertension; K52.9 Noninfective gastroenteritis and colitis, unspecified; E86.0 Dehydration; R09.02 Hypoxemia; K57.90 Diverticulosis of intestine, part unspecified, without perforation or abscess without bleeding; N40.0 Benign prostatic hyperplasia without lower urinary tract symptoms; F41.9 Anxiety disorder, unspecified; E78.00 Pure hypercholesterolemia, unspecified; K21.9 Gastro-esophageal reflux disease without esophagitis; I45.10 Unspecified right bundle-branch block; Z91.81 History of falling; Z79.82 Long term (current) use of aspirin; Z88.0 Allergy status to penicillin; Z88.2 Allergy status to sulfonamides; Z88.8 Allergy status to other drugs, medicaments and biological substances
CPT/HCPCS: 36415; 71045; 74022; 80053; 82274; 84145; 85025; 87015; 87045; 87046; 87324; 87449; 87899; 89055; 94640; 94760